=== PATIENT | female | born 1935 | race Two or more races ===

== ENCOUNTER 2020-03-10 09:44 | Outpatient (REF) | payer MEDICARE, SELFPAY ==
[2020-03-10 10:57] LABS: MANUAL DIFF FLAG NO
[2020-03-10 11:01] LABS: Basophils Percent Auto 0.2 % (0-2); Eosinophils Absolute Auto 0.1 X10*3/uL (0.0-0.4); Eosinophils Percent Auto 0.9 % (0-4); Hematocrit 36.1 % (37-47); Hemoglobin 11.3 g/dl (12.0-16.0); Imm Gran Abs Auto 0.05 X10*3/uL (0.00-0.03); Imm Gran Pct Auto 0.6 % (0.0-0.4); Lymphocytes Percent Auto 36.7 % (20-40); Mean Corpuscular HGB Conc 31.3 g/dl (31.0-35.0); Mean Corpuscular Hemoglobin 30.6 pg (27.0-33.0); Mean Corpuscular Volume 97.8 fL (80-98); Mean Platelet Volume 10.1 fL (9.4-12.3); Monocytes Absolute Auto 0.8 X10*3/uL (0.1-1.2); Monocytes Percent Auto 10.1 % (2-11); Neutrophils Absolute Auto 4.2 X10*3/uL (2.0-8.3); Neutrophils Percent Auto 51.5 % (45-73); Platelet Count 288 X10*3/uL (160-400); Red Blood Count 3.69 X10*6/uL (4.20-5.50); Red Cell Distribution Width 12.4 % (11.0-16.0); White Blood Count 8.1 X10*3/uL (4.8-10.8)
[2020-03-10 11:03] LABS: Glucose Urine UA NEG (NEG); Leukocyte Esterase Urine 1+ (NEG); Nitrite Urine NEG (NEG); PH 5.5 (5.0-8.0); Urine Blood NEG (NEG); Urine Ketones NEG (NEG); Urine Protein NEG (NEG-TRACE)
[2020-03-10 11:04] LABS: Appearance Urine HAZY; Color Urine STRAW
[2020-03-10 11:26] LABS: Bacteria Urine TRACE /LPF; RBC Urine 0 /HPF (0)
[2020-03-10 11:28] LABS: Renal w Reflex-LAB USE ONLY Order Verified
[2020-03-10 11:35] LABS: Anion Gap 11 (12-20); Blood Urea Nitrogen 26 mg/dL (9-16); Calcium 9.2 mg/dL (8.4-10.2); Carbon Dioxide 29 mmol/L (22-29); Chloride 107 mmol/L (96-108); Estimated Glomerular Filt Rate 42; Magnesium 1.9 mg/dL (1.6-2.6); Sodium 142 mmol/L (135-145)
[2020-03-10 11:39] LABS: Creatinine Urine 64.88 mg/dL; Microalbum/Creatinine Ratio Ur 101.9 ug/mg cr; Protein/Creatinine Ratio, Ur 0.23 (<0.2); Total Protein Urine Random 15 mg/dL (<12)
[2020-03-10 11:47] LABS: Vitamin D 25-OH Total 26.6 ng/mL (>30)
[2020-03-10 12:42] LABS: Renal w Reflex Lab Use Only Order verified
[2020-03-12 15:06] LABS: Anti Nuclear Antibody Screen POSITIVE (NEGATIVE); Anti Nuclear Antibody Titer 1:40 titer
[2020-03-14 19:08] LABS: IgA 228 mg/dL (70-320); IgG 806 mg/dL (600-1540); IgM 82 mg/dL (50-300)
== END 2020-03-10 09:45 | disposition home or self-care (01) ==
LOC: HO.LAB 09:44
PROVIDERS: PCP Family Medicine; Visit Provider Internal Medicine Nephrology
DX: E11.22 Type 2 diabetes mellitus with diabetic chronic kidney disease (principal); I12.9 Hypertensive chronic kidney disease with stage 1 through stage 4 chronic kidney disease, or unspecified chronic kidney disease; N18.30 Chronic kidney disease, stage 3 unspecified; D64.9 Anemia, unspecified; E78.5 Hyperlipidemia, unspecified; N28.9 Disorder of kidney and ureter, unspecified
CPT/HCPCS: 36415; 80051; 81001; 81003; 82040; 82043; 82306; 82310; 82565; 82784; 83735; 84100; 84156; 84520; 85025; 86038; 86039; 87086; 87088; 87186

== ENCOUNTER 2020-03-11 10:00 | Outpatient (RCR) | payer MEDICARE, SELFPAY ==
[2020-02-10 13:28] VITALS: BP 123/59; PULSE 74
== END 2020-03-14 14:39 | disposition other institution (70) ==
LOC: HO.PT 10:00
PROVIDERS: Visit Provider Family Medicine
DX: R29.898 Other symptoms and signs involving the musculoskeletal system (principal)
CPT/HCPCS: 97110; 97162; 97530

== ENCOUNTER → 2020-03-29 16:03 | Outpatient (BNVA) | payer MEDICARE, SELFPAY | PROVIDERS: PCP Family Medicine; Referring Provider Family Medicine; Visit Provider Student in an Organized Health Care Education/Training Program | DX: M35.3 Polymyalgia rheumatica (principal); M81.0 Age-related osteoporosis without current pathological fracture; Z79.52 Long term (current) use of systemic steroids | CPT/HCPCS: 99212 ==

== ENCOUNTER → 2020-04-12 13:00 | Outpatient (BNVA) | payer MEDICARE, SELFPAY | PROVIDERS: PCP Family Medicine; Visit Provider Student in an Organized Health Care Education/Training Program | DX: M81.0 Age-related osteoporosis without current pathological fracture (principal) | CPT/HCPCS: 96402 ==

== ENCOUNTER 2020-05-13 09:31 | Outpatient (REF) | payer MEDICARE, SELFPAY ==
[2020-05-13 11:30] LABS: MANUAL DIFF FLAG NO
[2020-05-13 11:43] LABS: Glucose Urine UA NEG (NEG); Leukocyte Esterase Urine 1+ (NEG); Nitrite Urine POS (NEG); Specific Gravity - Urine 1.025 (1.005-1.025); Urine Blood NEG (NEG); Urine Ketones NEG (NEG); Urine Protein 1+ MG/DL (NEG-TRACE)
[2020-05-13 11:44] LABS: Appearance Urine HAZY; Color Urine YELLOW
[2020-05-13 11:51] LABS: Basophils Percent Auto 0.6 % (0-2); Eosinophils Absolute Auto 0.1 X10*3/uL (0.0-0.4); Hematocrit 37.1 % (37-47); Hemoglobin 11.5 g/dl (12.0-16.0); Imm Gran Abs Auto 0.03 X10*3/uL (0.00-0.03); Imm Gran Pct Auto 0.5 % (0.0-0.4); Lymphocytes Absolute Auto 1.7 X10*3/uL (1.2-4.9); Lymphocytes Percent Auto 26.5 % (20-40); Mean Corpuscular Hemoglobin 29.9 pg (27.0-33.0); Mean Corpuscular Volume 96.6 fL (80-98); Mean Platelet Volume 10.4 fL (9.4-12.3); Monocytes Absolute Auto 0.7 X10*3/uL (0.1-1.2); Monocytes Percent Auto 10.6 % (2-11); Neutrophils Absolute Auto 3.9 X10*3/uL (2.0-8.3); Neutrophils Percent Auto 59.8 % (45-73); Platelet Count 273 X10*3/uL (160-400); Red Blood Count 3.84 X10*6/uL (4.20-5.50); Red Cell Distribution Width 12.6 % (11.0-16.0); White Blood Count 6.5 X10*3/uL (4.8-10.8)
[2020-05-13 12:16] LABS: Bacteria Urine 1+ /LPF; RBC Urine 0-2 /HPF (0); Renal Epithelial Cells Urine TRACE /LPF; Squamous Epithelial Cell Urine TRACE /LPF; WBC Urine 50-75 /HPF (0-4)
[2020-05-13 12:24] LABS: Estimated Average Glucose 214 mg/dL; Hemoglobin A1c % 9.1 %
[2020-05-13 12:30] LABS: Ferritin 277 ng/mL (10-250); TSH reflex Free T4 4.06 mIU/mL (0.32-4.0)
[2020-05-13 12:31] LABS: Alanine Aminotransferase 16 U/L (0-31); Albumin Level 4.1 g/dL (3.5-5.0); Alkaline Phosphatase 57 U/L (39-117); Anion Gap 14 (12-20); Aspartate Amino Transferase 16 U/L (5-31); Bilirubin Total 0.4 mg/dL (0.0-1.0); Blood Urea Nitrogen 20 mg/dL (9-16); Calcium 8.7 mg/dL (8.4-10.2); Carbon Dioxide 25 mmol/L (22-29); Chloride 108 mmol/L (96-108); Estimated Glomerular Filt Rate 46; Glucose Random 146 mg/dL (60-115); Iron 77 mcg/dL (30-160); Percent Iron Saturation 33 % (15-50); Potassium 4.9 mmol/l (3.3-5.1); Sodium 142 mmol/L (135-145); Total Iron Binding Capacity 230 mcg/dL (228-428); Total Protein 6.4 g/dL (6.5-8.0); Unsaturated Iron Binding 153 ug/dL
[2020-05-13 12:38] LABS: Erythrocyte Sedimentation Rate 27 MM/HR (0-20)
[2020-05-13 12:39] LABS: Folate 12.6 ng/mL (> or = 4.0); Vitamin B12 855 pg/mL (200-900)
[2020-05-13 14:13] LABS: Free T4 (Free Thyroxine) 1.05 ng/dL (0.71-1.85)
== END 2020-05-13 09:32 | disposition home or self-care (01) ==
LOC: HO.LAB 09:31
PROVIDERS: Absent Provider Student in an Organized Health Care Education/Training Program; PCP Family Medicine; Visit Provider Family Medicine
DX: M35.3 Polymyalgia rheumatica (principal); E11.22 Type 2 diabetes mellitus with diabetic chronic kidney disease; I12.9 Hypertensive chronic kidney disease with stage 1 through stage 4 chronic kidney disease, or unspecified chronic kidney disease; N18.31 Chronic kidney disease, stage 3a; R30.0 Dysuria
CPT/HCPCS: 36415; 80053; 81001; 82607; 82728; 82746; 83036; 83540; 84439; 84443; 85025; 85652; 86140; 87086; 87088; 87186

== ENCOUNTER → 2020-06-23 15:06 | Outpatient (BNVA) | payer MEDICARE, SELFPAY | PROVIDERS: PCP Family Medicine; Referring Provider Family Medicine; Visit Provider Student in an Organized Health Care Education/Training Program | DX: M35.3 Polymyalgia rheumatica (principal); M81.0 Age-related osteoporosis without current pathological fracture; Z79.52 Long term (current) use of systemic steroids | CPT/HCPCS: 99212 ==

== ENCOUNTER 2020-09-17 15:04 | Emergency (ER) | payer MEDICARE, SELFPAY ==
--- NOTE | ~2020-09-17 | XR_ITS ---
EXAMINATION: XR TOES, RIGHT CLINICAL INFORMATION: Pain and bruising after injury COMPARISON: None TECHNIQUE: 3 views of the right toes were obtained. FINDINGS: There is subtle cortical lucency seen through the distal shaft of the second distal phalanx only on the oblique view. There is soft tissue swelling. No dislocation seen. XR/XR toe RT min 2V IMPRESSION: There may be a subtle nondisplaced fracture through the distal shaft of the second distal phalanx, seen only on one view.
[2020-09-17 16:04] VITALS: BP 145/68; PULSE 71; RESP 16; TEMP 36.5; O2SAT 97; BMI 29.6
--- NOTE | 2020-09-17 17:09 | ED_ITS ---
HPI - Extremity Injury (Lower) General Chief Complaint: Extremity Injury, Lower Stated Complaint: Toe injury Time Seen by Provider: 09/17/20 15:29 Source: patient Mode of arrival: other (Rollator walker) Limitations: language barrier History of Present Illness HPI Narrative: 85-year-old female with past medical history of osteoporosis, polymyalgia rheumatica, diabetes, hypertension, hypothyroidism, hyperlipidemia presents with crush injury to the 2nd right toe. Patient dropped a vase on her foot, and now has some bruising and pain. She does not describe any other injuries, denies falls, chest pain or pressure, palpitations, shortness breath, shortness of breath on exertion, abdominal pain, abdominal distention, dysuria, hematuria, fevers, chills, nausea, vomiting, diarrhea, constipation, loss of balance, or any other concerning symptoms. MD complaint: other (Toe injury) Onset (ago): day(s) Place: home Severity: moderate Severity scale (1-10): 6 Relieving factors: nothing Exacerbating factors: weight bearing, movement and palpation Context: direct blow (Dropped a vase on her toe) Associated symptoms: swelling Other symptoms: none Treatments prior to arrival: cold therapy and NSAIDS Related Data Home Medications Medication Instructions Recorded Confirmed acetaminophen 325 mg capsule 650 mg PO Q4H PRN 03/29/20 03/29/20 amitriptyline 10 mg tablet 10 mg PO BEDTIME 03/29/20 03/29/20 amlodipine 5 mg tablet 5 mg PO DAILY 03/29/20 03/29/20 ascorbate calcium (vitamin C) 500 500 mg PO DAILY 03/29/20 03/29/20 mg tablet atorvastatin 80 mg tablet 80 mg PO DAILY 03/29/20 03/29/20 calcium carbonate-vitamin D3 600 cap PO 03/29/20 03/29/20 mg calcium-200 unit capsule citalopram 40 mg tablet 40 mg PO DAILY tab 03/29/20 03/29/20 cranberry extract 300 mg tablet 300 mg PO DAILY 03/29/20 03/29/20 cyanocobalamin (vitamin B-12) 1,000 mcg PO DAILY 03/29/20 03/29/20 1,000 mcg capsule diclofenac sodium 1 % topical gel 4 g TOPICAL QID PRN 03/29/20 03/29/20 docusate sodium 250 mg capsule 250 mg PO DAILY 03/29/20 03/29/20 ferrous sulfate 325 mg (65 mg 325 mg PO DAILY 03/29/20 03/29/20 iron) tablet levothyroxine 75 mcg tablet 75 mcg PO DAILY 03/29/20 03/29/20 loratadine 10 mg tablet 10 mg PO DAILY 03/29/20 03/29/20 omeprazole 20 mg capsule,delayed 20 mg PO DAILY 03/29/20 03/29/20 release propylene glycol 0.6 % eye drops 1 drp OPHTHALMIC (EYE) DAILY PRN 03/29/20 03/29/20 sennosides 8.6 mg tablet 17.2 mg PO BEDTIME tab 03/29/20 03/29/20 glipizide 5 mg tablet 5 mg PO BID 06/23/20 Previous Rx's Medication Instructions Recorded denosumab 60 mg/mL subcutaneous 60 mg SUBCUT [id number] #1 ml 03/29/20 syringe baclofen 10 mg tablet 5 mg PO BID #90 tab 06/09/20 prednisone 1 mg tablet 2 mg PO DAILY #60 tab 07/26/20 Allergies Allergy/AdvReac Type Severity Reaction Status Date / Time No Known Allergies Allergy Verified 09/17/20 16:07 [No Known Allergies*] Review of Systems Review of Systems: Constitutional: No Fever, No Chills ENT/Mouth: No Ear Pain, No Hoarseness, No sore throat Eyes: No Eye Pain, No Swelling, No Redness, No Foreign Body Cardiovascular: No Chest Pain, No SOB Respiratory: No Cough, No Dyspnea Gastrointestinal: No Nausea, No Vomiting, No Diarrhea, No abdominal Pain Genitourinary: No Dysuria, No Hematuria Musculoskeletal: positive right 2nd toe pain pain, No Myalgias, No Joint Swelling Skin: Positive right 2nd toe swelling and bruising, No Skin lacerations, No rash Neuro: No Weakness, No Numbness, No Paresthesias, No Loss of Consciousness, No Dizziness, No Headache Psych: No Anxiety/Panic, No Depression Heme/Lymph: no easy bruising, no Lymphadenopathy Endocrine: No Polyuria, No Polydipsia Yes all other systems are reviewed and are negative [facility] Past Medical History Attestation statement: The following information was validated with the patient. Source: old records reviewed Medical History Polymyalgia rheumatica Social History Social History Alcohol intake: never Smoking Status: Never smoker Advance Directives: Yes Advance Directives on File: Yes Advance Directives Date on File: 02/10/20 Physical Exam Vital Signs: Vital Signs: Last Vital Signs Temp 97.7 F 09/17/20 16:04 Pulse 71 09/17/20 16:04 Resp 16 09/17/20 16:04 BP 145/68 H 09/17/20 16:04 Pulse Ox 97 09/17/20 16:04 Body Mass Index 29.6 Appearance: Alert. Oriented X3. No acute distress. Eyes: Pupils equal, round and reactive to light. ENT: Pharynx normal. Neck: Normal inspection. Neck supple. CVS: Normal heart rate and rhythm. Pulses normal. Respiratory: No respiratory distress. Breath sounds normal. Abdomen: Soft and nontender. Skin: Skin warm and dry. Normal skin color. Normal skin turgor. Extremities: Right 2nd toe swollen, bruised, tender to palpation, full range of motion to bilateral lower extremities and other toes. No hip pain or pain to palpation, no crepitus. Neuro: No motor deficit. No sensory deficit. Course Course Course Narrative: 85-year-old female presents with right 2nd toe pain after dropping a vase on her toe. Will order x-ray. X-rays show a small hairline fracture, barely visible on x-ray and only visible in one view to the right 2nd toe phalanx. Will give patient a postop shoe as she is states that she is having a difficult time putting shoes on because the pressure on the top of foot. Patient will follow-up with her primary care physician very closely as she is a diabetic and does understand that she needs close monitoring for wound healing. Patient and patient's family verbalized understanding of and agrees to plan of care discharge home. Family utilized as air and water tester, [employer] translate utilized for discharge instructions. MDM - Extremity Injury (Lower) Differential Diagnosis Differential diagnosis: Likely fracture of toe Medical Records Attestation: I reviewed the patient's medical records. Lab Data Attestation: I reviewed the patient's lab results. Imaging Data Toe x-ray: Attestation: I personally reviewed and interpreted this imaging study as follows: Radiologist's impression: EXAMINATION: XR TOES, RIGHT CLINICAL INFORMATION: Pain and bruising after injury COMPARISON: None TECHNIQUE: 3 views of the right toes were obtained. FINDINGS: There is subtle cortical lucency seen through the distal shaft of the second distal phalanx only on the oblique view. There is soft tissue swelling. No dislocation seen. XR/XR toe RT min 2V IMPRESSION: There may be a subtle nondisplaced fracture through the distal shaft of the second distal phalanx, seen only on one view. Discharge Plan Discharge Clinical Impression: Fracture of toe Qualifiers: Encounter type: initial encounter Toe: lesser toe Fracture type: closed Phalanx: distal Fracture alignment: nondisplaced Laterality: right Qualified Code(s): S92.534A - Nondisplaced fracture of distal phalanx of right lesser toe(s), initial encounter for closed fracture Patient Disposition: Home, Self-Care Instructions: Toe Fracture (ED) Additional Instructions: Se le evalu? por dolor en el josselny dedo del pie derecho. Hughes dedo del pie tiene theodore jennie?a fractura, por favor use el zapato posoperatorio, use hielo y lev?ntelo para mayor comodidad. Use Tylenol Motrin seg?n sea necesario para controlar el dolor. Si es diab?bella, debe hacer un seguimiento con un m?dico de atenci?n primaria en 2 a 4 d?as para garantizar theodore curaci?n adecuada. [place] por elegir tobias departamento de emergencias para hughes evaluaci?n. Malachi un seguimiento con el m?dico de atenci?n primaria seg?n sea necesario. Regrese al departamento de emergencias por cualquier s?ntoma nuevo, preocupante o que empeore. You were evaluated for right 2nd toe pain. Your toe has a small fracture, please wear the postop shoe, use ice and elevate for comfort. Use Tylenol Motrin as needed for pain management. You are diabetic, you must follow-up with a primary care physician in 2-4 days to ensure proper healing. Thank you for choosing this emergency department for evaluation. Please follow-up with primary care physician as needed. Return to the emergency department for any new, concerning, or worsening symptoms. Prescriptions: No Action baclofen 10 mg tablet 5 mg PO BID Qty: 90 RF: 1 prednisone 1 mg tablet 2 mg PO DAILY Qty: 60 RF: 3 ascorbate calcium (vitamin C) 500 mg tablet 500 mg PO DAILY RF: 0 ferrous sulfate 325 mg (65 mg iron) tablet 325 mg PO DAILY RF: 0 atorvastatin [Lipitor] 80 mg tablet 80 mg PO DAILY RF: 0 amlodipine 5 mg tablet 5 mg PO DAILY RF: 0 omeprazole 20 mg capsule,delayed release(DR/EC) 20 mg PO DAILY RF: 0 docusate sodium [Stool Softener] 250 mg capsule 250 mg PO DAILY RF: 0 citalopram 40 mg tablet 40 mg PO DAILY RF: 0 cyanocobalamin (vitamin B-12) 1,000 mcg capsule 1,000 mcg PO DAILY RF: 0 acetaminophen [Tylenol] 325 mg capsule 650 mg PO Q4H PRNRF: 0 amitriptyline 10 mg tablet 10 mg PO BEDTIME RF: 0 levothyroxine 75 mcg tablet 75 mcg PO DAILY RF: 0 loratadine [Allergy Relief (loratadine)] 10 mg tablet 10 mg PO DAILY RF: 0 cranberry extract 300 mg tablet 300 mg PO DAILY RF: 0 Calcium 600 + D(3) 600 mg calcium- 200 unit capsule PO RF: 0 Systane Balance 0.6 % drops 1 drp ophthalmic (eye) DAILY PRNRF: 0 diclofenac sodium [Voltaren] 1 % gel 4 g topical QID PRNRF: 0 sennosides [Natural Senna Laxative] 8.6 mg tablet 17.2 mg PO BEDTIME RF: 0 Prolia 60 mg/mL syringe 60 mg subcut [id number] Qty: 1 RF: 1 glipizide 5 mg tablet 5 mg PO BID RF: 0
== END 2020-09-17 17:41 | disposition home or self-care (01) ==
PROVIDERS: Emergency Provider Emergency Medicine; PCP Family Medicine
DX: S92.534A Nondisplaced fracture of distal phalanx of right lesser toe(s), initial encounter for closed fracture (principal); W20.8XXA Other cause of strike by thrown, projected or falling object, initial encounter; Y93.9 Activity, unspecified; Y92.039 Unspecified place in apartment as the place of occurrence of the external cause; Y99.9 Unspecified external cause status
CPT/HCPCS: 73660; 99283; 99284

== ENCOUNTER 2020-10-10 11:39 | Outpatient (REF) | payer MEDICARE, SELFPAY ==
[2020-10-10 12:47] LABS: Alanine Aminotransferase 15 U/L (0-31); Alkaline Phosphatase 53 U/L (39-117); Anion Gap 15 (12-20); Aspartate Amino Transferase 17 U/L (5-31); Bilirubin Total 0.3 mg/dL (0.0-1.0); Blood Urea Nitrogen 29 mg/dL (9-16); C Reactive Protein 0.88 mg/dL (< or = 0.50); Calcium 9.3 mg/dL (8.4-10.2); Carbon Dioxide 22 mmol/L (22-29); Chloride 111 mmol/L (96-108); Estimated Glomerular Filt Rate 42; Glucose Random 84 mg/dL (60-115); Potassium 4.6 mmol/L (3.3-5.1); Sodium 143 mmol/L (135-145); Total Protein 6.7 g/dL (6.5-8.0)
[2020-10-10 12:55] LABS: Cholesterol 118 mg/dL; HDL Cholesterol 38 mg/dL; LDL Cholesterol Calculated 33 mg/dl; Triglycerides 238 mg/dL
[2020-10-10 13:12] LABS: Erythrocyte Sedimentation Rate 38 MM/HR (0-20)
[2020-10-10 13:20] LABS: TSH reflex Free T4 3.48 uIU/mL (0.32-4.0); Vitamin D 25-OH Total 26.3 ng/mL (>30)
[2020-10-10 13:21] LABS: Folate 10.3 ng/mL (> or = 4.0); Vitamin B12 936 pg/mL (200-900)
[2020-10-10 13:57] LABS: Estimated Average Glucose 180 mg/dL; Hemoglobin A1c % 7.9 %
[2020-10-10 14:12] LABS: Creatinine Urine 115.75 mg/dL; Microalbum/Creatinine Ratio Ur 130.4 ug/mg cr
[2020-10-14 17:02] LABS: Vitamin D 25-OH, D2 <4 ng/mL; Vitamin D 25-OH, D3 24 ng/mL; Vitamin D 25-OH, Total 24 ng/mL (30-100)
== END 2020-10-10 11:40 | disposition home or self-care (01) ==
LOC: HO.LAB 11:39
PROVIDERS: Student in an Organized Health Care Education/Training Program; PCP Family Medicine; Visit Provider Family Medicine
DX: M85.859 Other specified disorders of bone density and structure, unspecified thigh (principal); I12.9 Hypertensive chronic kidney disease with stage 1 through stage 4 chronic kidney disease, or unspecified chronic kidney disease; N18.31 Chronic kidney disease, stage 3a; E11.22 Type 2 diabetes mellitus with diabetic chronic kidney disease; M81.0 Age-related osteoporosis without current pathological fracture
CPT/HCPCS: 36415; 80053; 80061; 82043; 82306; 82607; 82746; 83036; 84443; 85652; 86140

== ENCOUNTER → 2020-10-12 13:09 | Outpatient (BNVA) | payer MEDICARE, SELFPAY | PROVIDERS: PCP Family Medicine; Visit Provider Student in an Organized Health Care Education/Training Program | DX: M35.3 Polymyalgia rheumatica (principal); M81.0 Age-related osteoporosis without current pathological fracture; M89.49 Other hypertrophic osteoarthropathy, multiple sites; Z79.52 Long term (current) use of systemic steroids | CPT/HCPCS: 96372; 99212 ==

== ENCOUNTER 2020-11-28 13:20 | Emergency (ER) | payer MEDICARE, SELFPAY ==
--- NOTE | ~2020-11-28 | CT_ITS ---
EXAMINATION: CT HEAD WITHOUT CONTRAST CT CERVICAL SPINE WITHOUT CONTRAST CLINICAL INFORMATION: Head trauma. COMPARISON: MRI brain May 30, 2018. CT head January 12, 2016 TECHNIQUE: Imaging was performed from the skull base to vertex without intravenous administration of contrast. In addition, helical noncontrast CT imaging was acquired through the cervical spine and source images were reviewed along with axial reconstructions and sagittal and coronal MPRs. [This CT examination was performed using dose optimization techniques as appropriate, variously including the following: *Automated exposure control *Adjustment of mA and/or kV according to patient size (this includes techniques or standardized protocols for targeted exams where dose is matched to indication/reason for exam; i.e. extremities or head) *Use of iterative reconstruction technique] DLP: 1164 mGy-cm FINDINGS: HEAD: No intracranial mass, hemorrhage, or midline shift is visualized. There is generalized global volume loss. There is moderate prominence of the ventricles and the sulci . There is mild hypodensity of the periventricular white matter due to chronic small vessel ischemic disease. There are vascular calcifications of the internal carotid arteries bilaterally. . No extra-axial collections are identified. Small calcified meningioma in the left frontal region along the inner table of the skull. CERVICAL SPINE: There is no evidence of acute cervical spine fracture. Vertebral bodies remain normal in height. Cervical vertebrae have normal alignment. There is multilevel degenerative spondylosis of the cervical spine with disc height narrowing and endplate spurs and facet joint arthrosis No pre- or paravertebral soft tissue abnormality is identified. Limited assessment of the lung apices is unremarkable. CT/CT cervical spine wo con IMPRESSION: 1. No acute intracranial pathology. 2. No CT evidence of acute cervical spine fracture or traumatic subluxation
[2020-11-28 15:23] VITALS: BP 167/75; PULSE 89; RESP 18; TEMP 36.7; O2SAT 97; BMI 29.2
[2020-11-28 16:10] VITALS: BP 165/68; PULSE 88; RESP 16; O2SAT 97
--- NOTE | 2020-11-28 16:20 | ECG_ITS ---
Test Reason : FALL Blood Pressure : / mmHG Vent. Rate : 095 BPM Atrial Rate : 095 BPM P-R Int : 162 ms QRS Dur : 076 ms QT Int : 356 ms P-R-T Axes : 044 -12 105 degrees QTc Int : 447 ms Normal sinus rhythm Moderate voltage criteria for LVH, may be normal variant Abnormal QRS-T angle, consider primary T wave abnormality Abnormal ECG When compared with ECG of 16-DEC-2016 14:12, No significant change was found Referred By: Veda Serrano Electronically Signed By:Dimas Andres
[2020-11-28 16:47] LABS: MANUAL DIFF FLAG NO
[2020-11-28 16:49] LABS: Basophils Percent Auto 0.3 % (0-2); Eosinophils Absolute Auto 0.1 X10*3/uL (0.0-0.4); Eosinophils Percent Auto 1.4 % (0-4); Hematocrit 37.1 % (37-47); Hemoglobin 11.6 g/dl (12.0-16.0); Imm Gran Abs Auto 0.04 X10*3/uL (0.00-0.03); Imm Gran Pct Auto 0.5 % (0.0-0.4); Lymphocytes Absolute Auto 1.3 X10*3/uL (1.2-4.9); Lymphocytes Percent Auto 16.9 % (20-40); Mean Corpuscular HGB Conc 31.3 g/dl (31.0-35.0); Mean Corpuscular Hemoglobin 29.8 pg (27.0-33.0); Mean Corpuscular Volume 95.4 fL (80-98); Mean Platelet Volume 9.7 fL (9.4-12.3); Monocytes Absolute Auto 0.8 X10*3/uL (0.1-1.2); Monocytes Percent Auto 10.5 % (2-11); Neutrophils Absolute Auto 5.5 X10*3/uL (2.0-8.3); Neutrophils Percent Auto 70.4 % (45-73); Platelet Count 257 X10*3/uL (160-400); Red Blood Count 3.89 X10*6/uL (4.20-5.50); Red Cell Distribution Width 13.4 % (11.0-16.0); White Blood Count 7.8 X10*3/uL (4.8-10.8)
--- NOTE | 2020-11-28 16:53 | ED_ITS ---
HPI - Fall General Chief Complaint: Fall Stated Complaint: fall Source: patient and family Mode of arrival: ambulatory Limitations: no limitations History of Present Illness HPI Narrative: 85-year-old female with past medical history of polymyalgia rheumatica with long-term steroid use, osteoporosis, hypertension, h yperlipidemia, diabetes, hypothyroidism, GERD and chronic pain presents with head injury sustained from a fall. Patient states that she does not recall what happened when she fell, but did hit her head on the left side. She complains of a mild headache, but does not report any other concerning symptoms. She denies chest pain or pressure, palpitations, shortness breath, shortness breath on exertion, abdominal pain, abdominal distention, dysuria, hematuria, nausea, vomiting, diarrhea, constipation, edema, dizziness, lightheadedness, fevers and chills. MD complaint: fall Onset (ago): hour(s) Fall from: standing Fall witnessed: no Place fall occurred: home Loss of consciousness: none Length of LOC: second(s) Prolonged down time: no Symptoms prior to fall: none Location of injury: head Severity: mild Severity scale (1-10): 3 Associated symptoms (after fall): headache Related Data Home Medications Medication Instructions Recorded Confirmed acetaminophen 325 mg capsule 650 mg PO Q4H PRN 03/29/20 03/29/20 (Tylenol) amitriptyline 10 mg tablet 10 mg PO BEDTIME 03/29/20 03/29/20 amlodipine 5 mg tablet 5 mg PO DAILY 03/29/20 03/29/20 ascorbate calcium (vitamin C) 500 500 mg PO DAILY 03/29/20 03/29/20 mg tablet atorvastatin 80 mg tablet (Lipitor) 80 mg PO DAILY 03/29/20 03/29/20 calcium carbonate-vitamin D3 600 cap PO 03/29/20 03/29/20 mg calcium-200 unit capsule (Calcium 600 + D(3)) citalopram 40 mg tablet 40 mg PO DAILY tab 03/29/20 03/29/20 cranberry extract 300 mg tablet 300 mg PO DAILY 03/29/20 03/29/20 cyanocobalamin (vitamin B-12) 1,000 mcg PO DAILY 03/29/20 03/29/20 1,000 mcg capsule diclofenac sodium 1 % topical gel 4 g TOPICAL QID PRN 03/29/20 03/29/20 (Voltaren) docusate sodium 250 mg capsule 250 mg PO DAILY 03/29/20 03/29/20 (Stool Softener) ferrous sulfate 325 mg (65 mg 325 mg PO DAILY 03/29/20 03/29/20 iron) tablet levothyroxine 75 mcg tablet 75 mcg PO DAILY 03/29/20 03/29/20 loratadine 10 mg tablet (Allergy 10 mg PO DAILY 03/29/20 03/29/20 Relief (loratadine)) omeprazole 20 mg capsule,delayed 20 mg PO DAILY 03/29/20 03/29/20 release propylene glycol 0.6 % eye drops 1 drp OPHTHALMIC (EYE) DAILY PRN 03/29/20 03/29/20 (Systane Balance) sennosides 8.6 mg tablet (Natural 17.2 mg PO BEDTIME tab 03/29/20 03/29/20 Senna Laxative) glipizide 5 mg tablet 5 mg PO BID 06/23/20 conjugated estrogens 0.625 mg/gram 0.625 mg VAGINAL 2XW g 10/12/20 vaginal cream (Premarin) mirabegron 25 mg tablet,extended 25 mg PO DAILY 10/12/20 release 24 hr (Myrbetriq) Previous Rx's Medication Instructions Recorded prednisone 1 mg tablet 2 mg PO DAILY #60 tab 07/26/20 baclofen 10 mg tablet 5 mg PO BID #90 tab 09/27/20 denosumab 60 mg/mL subcutaneous 60 mg SUBCUT [id number] #1 ml 09/28/20 syringe (Prolia) tramadol 50 mg tablet 50 mg PO BEDTIME #30 tab 10/12/20 cefuroxime axetil 500 mg tablet 500 mg PO Q12H 7 Days #14 tab 11/28/20 Allergies Allergy/AdvReac Type Severity Reaction Status Date / Time No Known Allergies Allergy Verified 10/12/20 13:14 [No Known Allergies*] Review of Systems Review of Systems: Constitutional: Positive headache, No Fever, No Chills ENT/Mouth: No Ear Pain, No Hoarseness, No sore throat Eyes: No Eye Pain, No Swelling, No Redness, No Foreign Body Cardiovascular: No Chest Pain, No SOB Respiratory: No Cough, No Dyspnea Gastrointestinal: No Nausea, No Vomiting, No Diarrhea, No abdominal Pain Genitourinary: No Dysuria, No Hematuria Musculoskeletal: positive neck pain, No Myalgias, No Joint Swelling Skin: No Skin lacerations, No rash Neuro: No Weakness, No Numbness, No Paresthesias, No Loss of Consciousness, No Dizziness Psych: No Anxiety/Panic, No Depression Heme/Lymph: no easy bruising, no Lymphadenopathy Endocrine: No Polyuria, No Polydipsia Yes all other systems are reviewed and are negative FORMERLY [facility], [facility]–1983 Past Medical History Attestation statement: The following information was validated with the patient. Source: old records reviewed Medical History (Updated 11/28/20 @ 18:28 by Veda Serrano NP) Polymyalgia rheumatica Surgical History History of back surgery History of hip surgery Hx of hysterectomy Hx of tubal ligation Family History Family History Mother HTN (hypertension) Father Alzheimer disease Social History Social History Household Members: Spouse and Children Housing: House Alcohol intake: never Patient Tobacco Use Status: Never used Tobacco Use of substances other than those prescribed or required for medical reasons: No Advance Directives: Yes Advance Directives on File: Yes Advance Directives Date on File: 02/10/20 Physical Exam Vital Signs: Vital Signs: Last Vital Signs Temp 98.0 F 11/28/20 15:23 Pulse 88 11/28/20 16:10 Resp 16 11/28/20 16:10 BP 165/68 H 11/28/20 16:10 Pulse Ox 97 11/28/20 16:10 Body Mass Index 29.2 Appearance: Alert. Oriented X3. No acute distress. Head: Normal external exam. Normocephalic. Atraumatic. No Hall signs noted. No raccoon eyes noted Eyes: PERRLA. EOMI. Conjunctiva and sclera normal. Eyelids normal. ENT: TM's Normal. Pharynx normal. Uvula midline. Moist mucous membranes. No trismus noted. No drooling noted. No muffled voice noted. Neck: Normal inspection. Neck supple. No adenopathy. Thyroid Normal. No meningeal signs. No neck mass noted. CVS: Normal heart rate and rhythm. Heart sound normal. No murmurs noted. Pulses equal to all extremities. Respiratory: No respiratory distress. Painless inspiration. Breath sounds normal. No wheezes/rales/rhonchi noted. Chest nontender. No accessory muscle usage noted or decreased air movement noted. Abdomen: Soft and nontender. Bowel sounds normal in all 4 quadrants. No di stention noted. No organomegaly noted. No visible injury noted. Back: No CVA tenderness. Full range of motion noted. Skin: Skin warm and dry. Normal skin color. Normal skin turgor. No rashes/le sions/lacerations noted. Extremities: No lower extremity edema. Extremities exhibit normal range of motion. Extremities nontender. Neuro: cranial nerves 2-12 intact, no focal neural deficits, strength 5/5 to all extremities, No motor deficit. No sensory deficit. Course Course Course Narrative: 85-year-old female presents for evaluation after a mechanical fall with a head strike. Patient does not report any prodromal symptoms or loss of consciousness however she does not recall how or why she fell. Will rule out ACS, CVA, fracture, will order labs and urinalysis. CT head neck are negative for acute findings. Labs are unremarkable, urinalysis positive for UTI. Will treat with cefuroxime. Does have an elevated BUN per baseline. Plan of care is to discharge home. Patient and daughter verbalized understanding of discharge instructions and agrees to plan of care discharge kelsie e. MDM - Fall MDM Narrative Medical decision making narrative: Fall Medical Records Attestation: I reviewed the patient's medical records. Lab Data Attestation: I reviewed the patient's lab results. Result diagrams: 11/28/20 16:40 11/28/20 16:40 Labs: Lab Results 11/28/20 11/28/20 11/28/20 Range/Units 16:40 16:40 16:40 WBC 7.8 (4.8-10.8) X10*3/uL RBC 3.89 L (4.20-5.50) X10*6/uL Hgb 11.6 L (12.0-16.0) g/dl Hct 37.1 (37-47) % MCV 95.4 (80-98) fL MCH 29.8 (27.0-33.0) pg MCHC 31.3 (31.0-35.0) g/dl RDW 13.4 (11.0-16.0) % Plt Count 257 (160-400) X10*3/uL MPV 9.7 (9.4-12.3) fL Immature Gran % (Auto) 0.5 H (0.0-0.4) % Neut % (Auto) 70.4 (45-73) % Lymph % (Auto) 16.9 L (20-40) % [place] % (Auto) 10.5 (2-11) % Eos % (Auto) 1.4 (0-4) % Baso % (Auto) 0.3 (0-2) % Lymph # (Auto) 1.3 (1.2-4.9) X10*3/uL [place] # (Auto) 0.8 (0.1-1.2) X10*3/uL Eos # (Auto) 0.1 (0.0-0.4) X10*3/uL Baso # (Auto) 0.0 (0.0-0.2) X10*3/uL Abs Immat Gran (auto) 0.04 H (0.00-0.03) X10*3/uL Absolute Neuts (auto) 5.5 (2.0-8.3) X10*3/uL Absolute Nucleated RBC 0.000 (0.0-0.012) X10*3/uL Nucleated RBC % (auto) 0.0 (0.0-0.2) /100WBC Sodium 138 (135-145) mmol/L Potassium 5.1 (3.3-5.1) mmol/L Chloride 107 (96-108) mmol/L Carbon Dioxide 21 L (22-29) mmol/L Anion Gap 15 (12-20) BUN 25 H (9-16) mg/dL Creatinine 1.13 (0.5-1.4) mg/dL Estim Creat Clear Calc 35.9 Estimated GFR 46 Random Glucose 147 H D (60-115) mg/dL Calcium 9.3 (8.4-10.2) mg/dL Troponin I High Sens 6.2 (<3.5-17.0) ng/L Urine Color Urine Appearance Urine pH (5.0-8.0) Ur Specific [place] (1.005-1.025) Urine Protein (NEG-TRACE) MG/DL Urine Glucose (UA) (NEG) MG/DL Urine Ketones (NEG) MG/DL Urine Blood (NEG) Urine Nitrite (NEG) Ur Leukocyte Esterase (NEG) Urine RBC (0) /HPF Urine WBC (0-4) /HPF Ur Squamous Epith Cells /LPF Urine Bacteria /LPF 11/28/20 Range/Units 18:02 WBC (4.8-10.8) X10*3/uL RBC (4.20-5.50) X10*6/uL Hgb (12.0-16.0) g/dl Hct (37-47) % MCV (80-98) fL MCH (27.0-33.0) pg MCHC (31.0-35.0) g/dl RDW (11.0-16.0) % Plt Count (160-400) X10*3/uL MPV (9.4-12.3) fL Immature Gran % (Auto) (0.0-0.4) % Neut % (Auto) (45-73) % Lymph % (Auto) (20-40) % [place] % (Auto) (2-11) % Eos % (Auto) (0-4) % Baso % (Auto) (0-2) % Lymph # (Auto) (1.2-4.9) X10*3/uL [place] # (Auto) (0.1-1.2) X10*3/uL Eos # (Auto) (0.0-0.4) X10*3/uL Baso # (Auto) (0.0-0.2) X10*3/uL Abs Immat Gran (auto) (0.00-0.03) X10*3/uL Absolute Neuts (auto) (2.0-8.3) X10*3/uL Absolute Nucleated RBC (0.0-0.012) X10*3/uL Nucleated RBC % (auto) (0.0-0.2) /100WBC Sodium (135-145) mmol/L Potassium (3.3-5.1) mmol/L Chloride (96-108) mmol/L Carbon Dioxide (22-29) mmol/L Anion Gap (12-20) BUN (9-16) mg/dL Creatinine (0.5-1.4) mg/dL Estim Creat Clear Calc Estimated GFR Random Glucose (60-115) mg/dL Calcium (8.4-10.2) mg/dL Troponin I High Sens (<3.5-17.0) ng/L Urine Color YELLOW Urine Appearance CLEAR Urine pH 5.5 (5.0-8.0) Ur Specific [place] 1.010 (1.005-1.025) Urine Protein NEG (NEG-TRACE) MG/DL Urine Glucose (UA) NEG (NEG) MG/DL Urine Ketones NEG (NEG) MG/DL Urine Blood NEG (NEG) Urine Nitrite NEG (NEG) Ur Leukocyte Esterase TRACE H (NEG) Urine RBC 0 (0) /HPF Urine WBC 1-4 (0-4) /HPF Ur Squamous Epith Cells 1+ /LPF Urine Bacteria NONE /LPF Imaging Data CT head neck: Attestation: I personally reviewed and interpreted this imaging study as jose luis fontanez: Radiologist's impression: EXAMINATION: CT HEAD WITHOUT CONTRAST CT CERVICAL SPINE WITHOUT CONTRAST CLINICAL INFORMATION: Head trauma.? COMPARISON: MRI brain May 30, 2018. CT head January 12, 2016 TECHNIQUE: Imaging was performed from the skull base to vertex without intravenous administration of contrast. In addition, helical noncontrast CT imaging was acquired through the cervical spine and source images were reviewed along with axial reconstructions and sagittal and coronal MPRs. [This CT examination was performed using dose optimization techniques as appropriate, variously including the following: *Automated exposure control *Adjustment of mA and/or kV according to patient size (this includes techniques or standardized protocols for targeted exams where dose is matched to indication/reason for exam; i.e. extremities or head) *Use of iterative reconstruction technique] DLP: 1164 mGy-cm FINDINGS: HEAD: No intracranial mass, hemorrhage, or midline shift is visualized. There is generalized global volume loss. There is moderate prominence of the ventricles and the sulci . There is mild hypodensity of the periventricular white matter due to chronic small vessel ischemic disease. There are vascular calcifications of the internal carotid arteries bilaterally. . No extra-axial collections are identified. Small calcified meningioma in the left frontal region along the inner table of the skull. CERVICAL SPINE: There is no evidence of acute cervical spine fracture. Vertebral bodies remain normal in height. Cervical vertebrae have normal alignment. There is multilevel degenerative spondylosis of the cervical spine with disc height narrowing and endplate spurs and facet joint arthrosis No pre- or paravertebral soft tissue abnormality is identified. Limited assessment of the lung apices is unremarkable. CT/CT head/brain wo con IMPRESSION: 1. No acute intracranial pathology. 2. No CT evidence of acute cervical spine fracture or traumatic subluxation ? ECG Data Attestation: I personally reviewed and interpreted this ECG as follows: ECG interpretation date: 11/28/20 ECG interpretation time: 16:47 Prior ECG tracings: available for review Interpretation: Vent. Rate : 095 BPM ? ? Atrial Rate : 095 BPM ?? P-R Int : 162 ms? QRS Dur : 076 ms ? ? QT Int : 356 ms ? ? ? P-R-T Axes : 044 -12 105 degrees ?? QTc Int : 447 ms ? Normal sinus rhythm Moderate voltage criteria for LVH, may be normal variant Abnormal QRS-T angle, consider primary T wave abnormality Abnormal ECG When compared with ECG of 16-DEC-2016 14:12, No significant change was found Discharge Plan Discharge Clinical Impression: Acute UTI Fall Qualifiers: Encounter type: initial encounter Qualified Code(s): W19.XXXA - Unspecified fall, initial encounter Patient Disposition: Home, Self-Care Instructions: Fall Prevention for Older Adults (ED), Urinary Tract Infection in Older Adults (ED) Additional Instructions: Fue evaluado por theodore ca?da. Las tomograf?as computarizadas de la tricia y el dory son negativas para los hallazgos agudos que requieren theodore intervenci?n urgente. Bowles an?lisis de orina fue positivo para UTI. Le estamos tratando con cefuroxima 500 mg dos veces al d?a yajaira los pr?ximos 7 d?as. [place] tobias medicamento seg?n las indicaciones. Beber mucho l?quido. No tome anti?cidos con tobias medicamento. Deje de herb omeprazol mientras michael tobias antibi?bella. [place] por elegir tobias departamento de emergencias para bowles evaluaci?n. [place] un seguimiento con bowles m?dico de atenci?n primaria seg?n sea necesario. Regrese al departamento de emergencias por cualquier s?ntoma nuevo, preocupante o que empeore. You were evaluated for a fall. CT scan of head and neck are negative for acute findings requiring emergent intervention. Your urinalysis was positive for UTI. We are treating you with cefuroxime 500 mg twice a day for the next 7 days. Please take this medication as directed. Drink plenty of fluids. Do not take anti acids with this medication. Stop your omeprazole while taking this antibiotic. Thank you for choosing this emergency department for evaluation. Please follow-up with primary care physician as needed. Return to the emergency department for any new, concerning, or worsening symptoms. Prescriptions: New cefuroxime axetil 500 mg tablet 500 mg PO Q12H 7 Days Qty: 14 RF: 0 No Action prednisone 1 mg tablet 2 mg PO DAILY Qty: 60 RF: 3 baclofen 10 mg tablet 5 mg PO BID Qty: 90 RF: 1 denosumab [Prolia] 60 mg/mL syringe 60 mg subcut [id number] Qty: 1 RF: 1 Myrbetriq 25 mg tablet extended release 24 hr 25 mg PO DAILY RF: 0 Premarin 0.625 mg/gram cream 0.625 mg vaginal 2XW RF: 0 tramadol 50 mg tablet 50 mg PO BEDTIME Qty: 30 RF: 0 ascorbate calcium (vitamin C) 500 mg tablet 500 mg PO DAILY RF: 0 ferrous sulfate 325 mg (65 mg iron) tablet 325 mg PO DAILY RF: 0 atorvastatin [Lipitor] 80 mg tablet 80 mg PO DAILY RF: 0 amlodipine 5 mg tablet 5 mg PO DAILY RF: 0 omeprazole 20 mg capsule,delayed release(DR/EC) 20 mg PO DAILY RF: 0 docusate sodium [Stool Softener] 250 mg capsule 250 mg PO DAILY RF: 0 citalopram 40 mg tablet 40 mg PO DAILY RF: 0 cyanocobalamin (vitamin B-12) 1,000 mcg capsule 1,000 mcg PO DAILY RF: 0 acetaminophen [Tylenol] 325 mg capsule 650 mg PO Q4H PRNRF: 0 amitriptyline 10 mg tablet 10 mg PO BEDTIME RF: 0 levothyroxine 75 mcg tablet 75 mcg PO DAILY RF: 0 loratadine [Allergy Relief (loratadine)] 10 mg tablet 10 mg PO DAILY RF: 0 cranberry extract 300 mg tablet 300 mg PO DAILY RF: 0 Calcium 600 + D(3) 600 mg calcium- 200 unit capsule PO RF: 0 Systane Balance 0.6 % drops 1 drp ophthalmic (eye) DAILY PRNRF: 0 diclofenac sodium [Voltaren] 1 % gel 4 g topical QID PRNRF: 0 sennosides [Natural Senna Laxative] 8.6 mg tablet 17.2 mg PO BEDTIME RF: 0 glipizide 5 mg tablet 5 mg PO BID RF: 0 Interventions: ED Discharge Assessment Last Done: 11/28/20 18:34 Discharge Date/Time: 11/28/20 18:36
[2020-11-28 17:28] LABS: Anion Gap 15 (12-20); Blood Urea Nitrogen 25 mg/dL (9-16); Calcium 9.3 mg/dL (8.4-10.2); Carbon Dioxide 21 mmol/L (22-29); Chloride 107 mmol/L (96-108); Creatinine Clr Calc Pharmacy 35.9; Estimated Glomerular Filt Rate 46; Glucose Random 147 mg/dL (60-115); Potassium 5.1 mmol/L (3.3-5.1); Sodium 138 mmol/L (135-145)
[2020-11-28 17:30] LABS: Troponin-I High Sensitivity 6.2 ng/L (<3.5-17.0)
[2020-11-28 18:11] LABS: Glucose Urine UA NEG (NEG); Leukocyte Esterase Urine TRACE (NEG); Nitrite Urine NEG (NEG); PH 5.5 (5.0-8.0); UACC Culture Trigger YES; Urine Blood NEG (NEG); Urine Ketones NEG (NEG); Urine Protein NEG (NEG-TRACE)
[2020-11-28 18:12] LABS: Appearance Urine CLEAR; Color Urine YELLOW
[2020-11-28 18:17] LABS: RBC Urine 0 /HPF (0); Squamous Epithelial Cell Urine 1+ /LPF
== END 2020-11-28 18:36 | disposition home or self-care (01) ==
PROVIDERS: Nurse Practitioner Family; Emergency Provider Emergency Medicine; PCP Family Medicine
DX: N39.0 Urinary tract infection, site not specified (principal); R51.9 Headache, unspecified; Z91.81 History of falling; Z79.52 Long term (current) use of systemic steroids; M35.3 Polymyalgia rheumatica
CPT/HCPCS: 36415; 70450; 72125; 80048; 81001; 84484; 85025; 87086; 87088; 87186; 93005; 99284

== ENCOUNTER 2020-12-14 11:05 | Outpatient (REF) | payer MEDICARE, SELFPAY ==
[2020-12-14 13:07] LABS: Alanine Aminotransferase 14 U/L (0-31); Albumin Level 3.9 g/dL (3.5-5.0); Alkaline Phosphatase 49 U/L (39-117); Anion Gap 14 (12-20); Aspartate Amino Transferase 14 U/L (5-31); Bilirubin Total 0.2 mg/dL (0.0-1.0); Blood Urea Nitrogen 26 mg/dL (9-16); C Reactive Protein 0.29 mg/dL (< or = 0.50); Calcium 9.4 mg/dL (8.4-10.2); Carbon Dioxide 22 mmol/L (22-29); Chloride 110 mmol/L (96-108); Estimated Glomerular Filt Rate 41; Glucose Random 192 mg/dL (60-115); Potassium 4.6 mmol/L (3.3-5.1); Sodium 141 mmol/L (135-145); Total Protein 6.5 g/dL (6.5-8.0)
[2020-12-14 13:25] LABS: Erythrocyte Sedimentation Rate 27 MM/HR (0-20)
== END 2020-12-14 11:06 | disposition home or self-care (01) ==
LOC: HO.LAB 11:05
PROVIDERS: PCP Family Medicine; Visit Provider Student in an Organized Health Care Education/Training Program
DX: M35.3 Polymyalgia rheumatica (principal); M81.0 Age-related osteoporosis without current pathological fracture; M89.49 Other hypertrophic osteoarthropathy, multiple sites; Z79.52 Long term (current) use of systemic steroids
CPT/HCPCS: 36415; 80053; 85652; 86140; 99212

== ENCOUNTER 2021-01-23 14:07 | Outpatient (REF) | payer MEDICARE, SELFPAY ==
[2021-01-23 15:57] LABS: Basophils Percent Auto 0.5 % (0-2); Eosinophils Absolute Auto 0.2 X10*3/uL (0.0-0.4); Eosinophils Percent Auto 3.1 % (0-4); Hematocrit 36.3 % (37-47); Hemoglobin 11.3 g/dl (12.0-16.0); Imm Gran Abs Auto 0.03 X10*3/uL (0.00-0.03); Imm Gran Pct Auto 0.5 % (0.0-0.4); Lymphocytes Absolute Auto 1.5 X10*3/uL (1.2-4.9); Lymphocytes Percent Auto 23.7 % (20-40); MANUAL DIFF FLAG NO; Mean Corpuscular HGB Conc 31.1 g/dl (31.0-35.0); Mean Corpuscular Hemoglobin 29.7 pg (27.0-33.0); Mean Corpuscular Volume 95.5 fL (80-98); Mean Platelet Volume 10.6 fL (9.4-12.3); Monocytes Percent Auto 15.2 % (2-11); Neutrophils Absolute Auto 3.7 X10*3/uL (2.0-8.3); Platelet Count 283 X10*3/uL (160-400); Red Cell Distribution Width 13.2 % (11.0-16.0); White Blood Count 6.5 X10*3/uL (4.8-10.8)
[2021-01-23 16:31] LABS: Alanine Aminotransferase 19 U/L (0-31); Albumin Level 4.2 g/dL (3.5-5.0); Alkaline Phosphatase 49 U/L (39-117); Anion Gap 15 (12-20); Aspartate Amino Transferase 20 U/L (5-31); Bilirubin Total 0.3 mg/dL (0.0-1.0); Blood Urea Nitrogen 20 mg/dL (9-16); C Reactive Protein 0.49 mg/dL (< or = 0.50); Calcium 9.5 mg/dL (8.4-10.2); Carbon Dioxide 21 mmol/L (22-29); Chloride 109 mmol/L (96-108); Estimated Glomerular Filt Rate 44; Glucose Random 93 mg/dL (60-115); Potassium 4.9 mmol/L (3.3-5.1); Sodium 140 mmol/L (135-145); Total Protein 6.9 g/dL (6.5-8.0)
[2021-01-23 16:49] LABS: Erythrocyte Sedimentation Rate 29 MM/HR (0-20)
== END 2021-01-23 14:08 | disposition home or self-care (01) ==
LOC: HO.LAB 14:07
PROVIDERS: PCP Family Medicine; Visit Provider Nurse Practitioner Family
DX: M35.3 Polymyalgia rheumatica (principal)
CPT/HCPCS: 36415; 80053; 85025; 85652; 86140

== ENCOUNTER → 2021-01-26 11:41 | Outpatient (BNVA) | payer MEDICARE, SELFPAY | PROVIDERS: PCP Family Medicine; Visit Provider Nurse Practitioner Family | DX: M35.3 Polymyalgia rheumatica (principal); M81.0 Age-related osteoporosis without current pathological fracture; M89.49 Other hypertrophic osteoarthropathy, multiple sites; Z79.52 Long term (current) use of systemic steroids | CPT/HCPCS: 99212 ==

== ENCOUNTER 2021-02-03 07:46 | Day surgery (SDC) | payer MEDICARE, SELFPAY ==
[2021-01-30 15:04] VITALS: BMI 32.5
--- NOTE | 2021-02-02 10:39 | P.CONAN_ITS ---
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) Osteoporosis (Acute) Fracture of toe (Acute) Primary osteoarthritis involving multiple joints (Acute) Bilateral hand pain (Acute) Polymyalgia rheumatica (Acute) Past Medical History Medical History Chronic renal insufficiency Diabetes Elevated cholesterol Fibromyalgia GERD (gastroesophageal reflux disease) Hypothyroid Osteoarthritis Osteoporosis Polymyalgia rheumatica Family History Family History Mother HTN (hypertension) Father Alzheimer disease Surgical History Surgical History H/O colonoscopy History of back surgery History of esophagogastroduodenoscopy (EGD) History of hip surgery Hx of hysterectomy Hx of rotator cuff surgery Hx of tubal ligation Hx of vein stripping Social History Social History Household Members: Spouse and Children Housing: House Alcohol intake: never Patient Tobacco Use Status: Never used Tobacco Advance Directives: Yes Advance Directives Information Provided: Yes Advance Directives on File: Yes (previously on file) Advance Directives Date on File: 02/10/20 Meds Allergies Allergy/AdvReac Type Severity Reaction Status Date / Time No Known Allergies Allergy Verified 01/26/21 20:58 [No Known Allergies*] Home Medications Medication Instructions Recorded Confirmed Last Taken Type acetaminophen 325 mg capsule 650 mg PO Q4H PRN 03/29/20 12/14/20 Unknown History (Tylenol) amitriptyline 10 mg tablet 10 mg PO BEDTIME 03/29/20 12/14/20 Unknown History amlodipine 5 mg tablet 5 mg PO DAILY 03/29/20 12/14/20 Unknown History ascorbate calcium (vitamin C) 500 500 mg PO DAILY 03/29/20 12/14/20 Unknown History mg tablet atorvastatin 80 mg tablet (Lipitor) 80 mg PO DAILY 03/29/20 12/14/20 Unknown History calcium carbonate-vitamin D3 600 cap PO 03/29/20 12/14/20 Unknown History mg calcium-200 unit capsule (Calcium 600 + D(3)) citalopram 40 mg tablet 40 mg PO DAILY tab 03/29/20 12/14/20 Unknown History cranberry extract 300 mg tablet 300 mg PO DAILY 03/29/20 12/14/20 Unknown History cyanocobalamin (vitamin B-12) 1,000 mcg PO DAILY 03/29/20 12/14/20 Unknown History 1,000 mcg capsule diclofenac sodium 1 % topical gel 4 g TOPICAL QID PRN 03/29/20 12/14/20 Unknown History (Voltaren) docusate sodium 250 mg capsule 250 mg PO DAILY 03/29/20 12/14/20 Unknown History (Stool Softener) ferrous sulfate 325 mg (65 mg 325 mg PO DAILY 03/29/20 12/14/20 Unknown History iron) tablet levothyroxine 75 mcg tablet 75 mcg PO DAILY 03/29/20 12/14/20 Unknown History loratadine 10 mg tablet (Allergy 10 mg PO DAILY 03/29/20 12/14/20 Unknown History Relief (loratadine)) omeprazole 20 mg capsule,delayed 20 mg PO DAILY 03/29/20 12/14/20 Unknown History release propylene glycol 0.6 % eye drops 1 drp OPHTHALMIC (EYE) DAILY PRN 03/29/20 12/14/20 Unknown History (Systane Balance) sennosides 8.6 mg tablet (Natural 17.2 mg PO BEDTIME tab 03/29/20 12/14/20 Unknown History Senna Laxative) glipizide 5 mg tablet 5 mg PO BID 06/23/20 12/14/20 Unknown History conjugated estrogens 0.625 mg/gram 0.625 mg VAGINAL 2XW g 10/12/20 12/14/20 Unknown History vaginal cream (Premarin) mirabegron 25 mg tablet,extended 25 mg PO DAILY 10/12/20 12/14/20 Unknown History release 24 hr (Myrbetriq) Exam Exam Date and Time: February 02, 2021 1039 Height,Weight and Vital Signs: Height 5 ft 1 in Weight 78.018 kg Pertinent Lab Results Pertinent Lab Results: Laboratory Tests 01/23/21 01/23/21 14:38 14:38 WBC 6.5 Hgb 11.3 L Hct 36.3 L Plt Count 283 Sodium 140 Potassium 4.9 Chloride 109 H Carbon Dioxide 21 L BUN 20 H Creatinine 1.17 Narrative Narrative: EKG 11/2020 Vent. Rate : 095 BPM ? ? Atrial Rate : 095 BPM ?? P-R Int : 162 ms? QRS Dur : 076 ms ? ? QT Int : 356 ms ? ? ? P-R-T Axes : 044 -12 105 degrees ?? QTc Int : 447 ms ? Normal sinus rhythm Moderate voltage criteria for LVH, may be normal variant Abnormal QRS-T angle, consider primary T wave abnormality Abnormal ECG When compared with ECG of 16-DEC-2016 14:12, No significant change was found Assessment and Plan Assessment Anesthesia Assessment: Chart Reviewed Documented by User: Julia Maza MD 02/03/21 08:21 [facility] Past Medical History Medical History Chronic renal insufficiency Diabetes Elevated cholesterol Fibromyalgia GERD (gastroesophageal reflux disease) Hypothyroid Osteoarthritis Osteoporosis Polymyalgia rheumatica Family History Family History Mother HTN (hypertension) Father Alzheimer disease Family history of problems with anesthesia: No Surgical History Surgical History H/O colonoscopy History of back surgery History of esophagogastroduodenoscopy (EGD) History of hip surgery Hx of hysterectomy Hx of rotator cuff surgery Hx of tubal ligation Hx of vein stripping History of Problems with Anesthesia: No Social History Social History Household Members: Spouse and Children Housing: House Alcohol intake: never Patient Tobacco Use Status: Never used Tobacco Advance Directives: Yes Advance Directives Information Provided: Yes Advance Directives on File: Yes (previously on file) Advance Directives Date on File: 02/10/20 Meds Allergies Allergy/AdvReac Type Severity Reaction Status Date / Time No Known Allergies Allergy Verified 01/26/21 20:58 [No Known Allergies*] Home Medications Medication Instructions Recorded Confirmed Last Taken Type acetaminophen 325 mg capsule 650 mg PO Q4H PRN 03/29/20 12/14/20 Unknown History (Tylenol) amitriptyline 10 mg tablet 10 mg PO BEDTIME 03/29/20 12/14/20 Unknown History amlodipine 5 mg tablet 5 mg PO DAILY 03/29/20 12/14/20 Unknown History ascorbate calcium (vitamin C) 500 500 mg PO DAILY 03/29/20 12/14/20 Unknown History mg tablet atorvastatin 80 mg tablet (Lipitor) 80 mg PO DAILY 03/29/20 12/14/20 Unknown History calcium carbonate-vitamin D3 600 cap PO 03/29/20 12/14/20 Unknown History mg calcium-200 unit capsule (Calcium 600 + D(3)) citalopram 40 mg tablet 40 mg PO DAILY tab 03/29/20 12/14/20 Unknown History cranberry extract 300 mg tablet 300 mg PO DAILY 03/29/20 12/14/20 Unknown History cyanocobalamin (vitamin B-12) 1,000 mcg PO DAILY 03/29/20 12/14/20 Unknown History 1,000 mcg capsule diclofenac sodium 1 % topical gel 4 g TOPICAL QID PRN 03/29/20 12/14/20 Unknown History (Voltaren) docusate sodium 250 mg capsule 250 mg PO DAILY 03/29/20 12/14/20 Unknown History (Stool Softener) ferrous sulfate 325 mg (65 mg 325 mg PO DAILY 03/29/20 12/14/20 Unknown History iron) tablet levothyroxine 75 mcg tablet 75 mcg PO DAILY 03/29/20 12/14/20 Unknown History loratadine 10 mg tablet (Allergy 10 mg PO DAILY 03/29/20 12/14/20 Unknown History Relief (loratadine)) omeprazole 20 mg capsule,delayed 20 mg PO DAILY 03/29/20 12/14/20 Unknown History release propylene glycol 0.6 % eye drops 1 drp OPHTHALMIC (EYE) DAILY PRN 03/29/20 12/14/20 Unknown History (Systane Balance) sennosides 8.6 mg tablet (Natural 17.2 mg PO BEDTIME tab 03/29/20 12/14/20 Unknown History Senna Laxative) glipizide 5 mg tablet 5 mg PO BID 06/23/20 12/14/20 Unknown History conjugated estrogens 0.625 mg/gram 0.625 mg VAGINAL 2XW g 10/12/20 12/14/20 Unknown History vaginal cream (Premarin) mirabegron 25 mg tablet,extended 25 mg PO DAILY 10/12/20 12/14/20 Unknown History release 24 hr (Myrbetriq) Exam Airway Mallampati Class: II TM Dist: >3cm Neck ROM: Limited Denture: Lower Partial: Upper Assessment and Plan Assessment Anesthesia Assessment: Anesthesia Plan Discussed Final Anesthetic Review Family History of Problems with Anesthesia: No History of Problems with Anesthesia: No NPO: Yes ASA Class: III Final Preanesthetic Review: No Changes in Pt Med Stat, Meds/Allgs Chart Reviewed, Consent Obtained/Reviewed and Anes Risks/Benef Reviewed Patient Risk: Intermediate Procedure Risk: Low Assessment/Block/Sedation in SS: Assess/Block/Sedation-SS Anesthetic Plan Anesthetic Plan: MAC:
[2021-02-03 08:14] VITALS: BP 169/80; PULSE 115; RESP 17; TEMP 36.6; O2SAT 96; BMI 32.1
[2021-02-03 08:18] LABS: Glucose, Whole Blood 176 mg/dL (60-115)
--- NOTE | 2021-02-03 08:24 | P.CONAN_ITS ---
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) Osteoporosis (Acute) Fracture of toe (Acute) Primary osteoarthritis involving multiple joints (Acute) Bilateral hand pain (Acute) Polymyalgia rheumatica (Acute) Past Medical History Medical History Chronic renal insufficiency Diabetes Elevated cholesterol Fibromyalgia GERD (gastroesophageal reflux disease) Hypothyroid Osteoarthritis Osteoporosis Polymyalgia rheumatica Family History Family History Mother HTN (hypertension) Father Alzheimer disease Family history of problems with anesthesia: No Surgical History Surgical History H/O colonoscopy History of back surgery History of esophagogastroduodenoscopy (EGD) History of hip surgery Hx of hysterectomy Hx of rotator cuff surgery Hx of tubal ligation Hx of vein stripping History of Problems with Anesthesia: No Social History Social History Household Members: Spouse and Children Housing: House Alcohol intake: never Patient Tobacco Use Status: Never used Tobacco Advance Directives: Yes Advance Directives Information Provided: Yes Advance Directives on File: Yes (previously on file) Advance Directives Date on File: 02/10/20 Meds Allergies Allergy/AdvReac Type Severity Reaction Status Date / Time No Known Allergies Allergy Verified 01/26/21 20:58 [No Known Allergies*] Active Medications: Current Medications Lactated Ringer's (Lr) 1,000 mls @ 100 mls/hr IVCONT .Q10H COUNTS INCLUDE 234 BEDS AT THE [facility] Home Medications Medication Instructions Recorded Confirmed Last Taken Type acetaminophen 325 mg capsule 650 mg PO Q4H PRN 03/29/20 12/14/20 Unknown History (Tylenol) amitriptyline 10 mg tablet 10 mg PO BEDTIME 03/29/20 12/14/20 Unknown History amlodipine 5 mg tablet 5 mg PO DAILY 03/29/20 12/14/20 Unknown History ascorbate calcium (vitamin C) 500 500 mg PO DAILY 03/29/20 12/14/20 Unknown History mg tablet atorvastatin 80 mg tablet (Lipitor) 80 mg PO DAILY 03/29/20 12/14/20 Unknown History calcium carbonate-vitamin D3 600 cap PO 03/29/20 12/14/20 Unknown History mg calcium-200 unit capsule (Calcium 600 + D(3)) citalopram 40 mg tablet 40 mg PO DAILY tab 03/29/20 12/14/20 Unknown History cranberry extract 300 mg tablet 300 mg PO DAILY 03/29/20 12/14/20 Unknown History cyanocobalamin (vitamin B-12) 1,000 mcg PO DAILY 03/29/20 12/14/20 Unknown History 1,000 mcg capsule diclofenac sodium 1 % topical gel 4 g TOPICAL QID PRN 03/29/20 12/14/20 Unknown History (Voltaren) docusate sodium 250 mg capsule 250 mg PO DAILY 03/29/20 12/14/20 Unknown History (Stool Softener) ferrous sulfate 325 mg (65 mg 325 mg PO DAILY 03/29/20 12/14/20 Unknown History iron) tablet levothyroxine 75 mcg tablet 75 mcg PO DAILY 03/29/20 12/14/20 Unknown History loratadine 10 mg tablet (Allergy 10 mg PO DAILY 03/29/20 12/14/20 Unknown History Relief (loratadine)) omeprazole 20 mg capsule,delayed 20 mg PO DAILY 03/29/20 12/14/20 Unknown History release propylene glycol 0.6 % eye drops 1 drp OPHTHALMIC (EYE) DAILY PRN 03/29/20 12/14/20 Unknown History (Systane Balance) sennosides 8.6 mg tablet (Natural 17.2 mg PO BEDTIME tab 03/29/20 12/14/20 Unknown History Senna Laxative) glipizide 5 mg tablet 5 mg PO BID 06/23/20 12/14/20 Unknown History conjugated estrogens 0.625 mg/gram 0.625 mg VAGINAL 2XW g 10/12/20 12/14/20 Unknown History vaginal cream (Premarin) mirabegron 25 mg tablet,extended 25 mg PO DAILY 10/12/20 12/14/20 Unknown History release 24 hr (Myrbetriq) Exam Exam Date and Time: February 03, [id number] Height,Weight and Vital Signs: Height 5 ft 1 in Weight 78.018 kg Pertinent Lab Results Pertinent Lab Results: Laboratory Tests 02/03/21 08:10 POC Glucose 176 H Airway Mallampati Class: II TM Dist: >3cm Neck ROM: Limited Denture: Lower Partial: Upper Assessment and Plan Assessment Anesthesia Assessment: Anesthesia Plan Discussed and Chart Reviewed Final Anesthetic Review Family History of Problems with Anesthesia: No History of Problems with Anesthesia: No NPO: Yes ASA Class: III Final Preanesthetic Review: No Changes in Pt Med Stat, Meds/Allgs Chart Reviewed, Consent Obtained/Reviewed and Anes Risks/Benef Reviewed Patient Risk: Intermediate Procedure Risk: Low Assessment/Block/Sedation in SS: Assess/Block/Sedation- Anesthetic Plan Anesthetic Plan: MAC: Disposition: Standard PACU
[2021-02-03] MEDS: Lactated Ringers 1,000 ML 100 ML IVCONT (08:26)
[2021-02-03 09:18] VITALS: BP 144/71; PULSE 114; RESP 20; TEMP 36.4; O2SAT 98
--- NOTE | 2021-02-03 09:22 | P.BOP_ITS ---
Brief Operative Note Date of Service: 02/03/21 Pre-op diagnosis: Dysphagia Post-op diagnosis: other (Hiatal hernia, Gerd, R/O EOE, ? 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 Esophagus at 25cm) Condition: stable Disposition: PACU
[2021-02-03 09:41] VITALS: BP 150/64; PULSE 106; RESP 18; TEMP 36.4; O2SAT 96
--- NOTE | 2021-02-03 09:51 | OP_ITS ---
SURGEON: Otoniel Moya MD INDICATIONS: The patient presents for evaluation of chronic gastroesophageal reflux and dysphagia. Full consent has been obtained from her for this, including risks of bleeding and perforation. PREOPERATIVE DIAGNOSIS: POSTOPERATIVE DIAGNOSIS: PROCEDURE PERFORMED: Esophagogastroduodenoscopy with balloon dilation of gastroesophageal junction and biopsies. ESTIMATED BLOOD LOSS: COMPLICATIONS: ANESTHESIA: Monitored anesthesia care. ASSISTANTS: SPECIMENS: PREOPERATIVE DIAGNOSES: Gastroesophageal reflux and dysphagia. POSTOPERATIVE DIAGNOSES: Gastroesophageal reflux and dysphagia, hiatal hernia, rule out eosinophilic esophagitis. DESCRIPTION OF PROCEDURE: The patient was placed in the left lateral decubitus position. The Olympus video gastroscope was passed in the posterior oropharynx and upper esophagus. The scope was passed slowly into the distal esophagus. The esophagus itself was somewhat dilated with some retained fluid. Subjectively, the esophageal motility did appear to be diminished. The gastroesophageal junction appeared at between 33 and 34 cm. There was some irregularity consistent with reflux and perhaps some small areas of Fontaine's mucosa. There was no esophagitis, mass, ulceration, nor stricture. The scope easily entered into the stomach. There was a small to moderate-sized hiatal hernia. The scope was advanced to the pylorus and the duodenum was cannulated to the descending portion. The duodenum including the bulb appeared normal without mass or ulceration. Scope was withdrawn back into the stomach. The gastric antrum and body appeared normal with good peristalsis. The scope was retroflexed visualizing the proximal stomach carefully, which appeared normal, without any sign of mass or ulceration. The scope was straightened. The scope was withdrawn back in the esophagus. Given her symptomatology, I did use a [employer] incremental balloon to dilate the gastroesophageal junction from 18 mm to 20 mm at the recommended pressure for between 30 and 60 seconds each. The balloon itself, even at the 20 mm inflation, pulled easily into and out of the stomach. There was no appreciable change in the gastroesophageal junction nor any heme post-dilation. The scope was withdrawn through the remainder of the esophagus. The mucosa appeared normal. Biopsies were obtained at 25 cm. Again, the esophagus appeared to be somewhat dilated and subjectively had diminished peristalsis. The scope was withdrawn from the patient. She tolerated the procedure well and was returned to the recovery area in stable condition. IMPRESSION: 1. Hiatal hernia. 2. Gastroesophageal reflux. 3. Status post balloon dilation of gastroesophageal junction. 4. Rule out eosinophilic esophagitis. 5. Somewhat dilated esophagus and with subjectively diminished peristalsis. PLAN: The results of biopsies will be checked. She will have her omeprazole increased from 20 mg daily to 20 mg b.i.d. I suspect she will need esophageal motility studies to rule out any underlying motility problems such as achalasia. She will be seen in followup. This has been discussed with the daughter. MD BERLIN Nino/KYLE / [id number]
== END 2021-02-03 10:55 | disposition home or self-care (01) ==
PROVIDERS: PCP Family Medicine; Visit Provider Internal Medicine
PROC: (CPT 43249; principal; 2021-02-03 08:30)
DX: R13.19 Other dysphagia (principal); K21.9 Gastro-esophageal reflux disease without esophagitis; K44.9 Diaphragmatic hernia without obstruction or gangrene; E11.9 Type 2 diabetes mellitus without complications; I10 Essential (primary) hypertension; Z79.84 Long term (current) use of oral hypoglycemic drugs; Z79.899 Other long term (current) drug therapy
CPT/HCPCS: 43249; 43239; 82947; 88305; C1726

== ENCOUNTER 2021-02-08 08:54 | Outpatient (REF) | payer MEDICARE, SELFPAY ==
--- NOTE | ~2021-02-08 | XR_ITS ---
EXAMINATION: XR HAND, RIGHT XR HAND, LEFT CLINICAL INFORMATION: Right and left hand pain. COMPARISON: Left hand and wrist radiographs dated 12/16/2016. Right and left hand radiographs dated 01/13/2016. TECHNIQUE: AP, oblique, and lateral views of the right and left hand. FINDINGS: Right Hand: No acute fracture or dislocation. Normal carpal alignment. Joint space narrowing or marginal osteophytes throughout the metacarpophalangeal and interphalangeal joints, most prominent at the third metacarpophalangeal joint. No osseous erosion. No abnormal soft tissue calcification. Left Hand: No acute fracture or dislocation. Normal carpal alignment. Joint space narrowing with marginal osteophytes throughout the metacarpophalangeal and interphalangeal joints, most prominent at the first interphalangeal joint. No new osseous erosion. No abnormal soft tissue calcification. XR/XR hand RT min 3V IMPRESSION: Right Hand: Osteoarthritis throughout the metacarpophalangeal and interphalangeal joints, most prominent at the third metacarpophalangeal joint, progressed when compared to the prior examination. Left Hand: Osteoarthritis throughout the metacarpophalangeal and interphalangeal joints, most prominent at the first interphalangeal joint, progressed when compared to the prior examination.
--- NOTE | ~2021-02-08 | XR_ITS ---
EXAMINATION: XR HAND, RIGHT XR HAND, LEFT CLINICAL INFORMATION: Right and left hand pain. COMPARISON: Left hand and wrist radiographs dated 12/16/2016. Right and left hand radiographs dated 01/13/2016. TECHNIQUE: AP, oblique, and lateral views of the right and left hand. FINDINGS: Right Hand: No acute fracture or dislocation. Normal carpal alignment. Joint space narrowing or marginal osteophytes throughout the metacarpophalangeal and interphalangeal joints, most prominent at the third metacarpophalangeal joint. No osseous erosion. No abnormal soft tissue calcification. Left Hand: No acute fracture or dislocation. Normal carpal alignment. Joint space narrowing with marginal osteophytes throughout the metacarpophalangeal and interphalangeal joints, most prominent at the first interphalangeal joint. No new osseous erosion. No abnormal soft tissue calcification. XR/XR hand LT min 3V IMPRESSION: Right Hand: Osteoarthritis throughout the metacarpophalangeal and interphalangeal joints, most prominent at the third metacarpophalangeal joint, progressed when compared to the prior examination. Left Hand: Osteoarthritis throughout the metacarpophalangeal and interphalangeal joints, most prominent at the first interphalangeal joint, progressed when compared to the prior examination.
== END 2021-02-08 08:55 | disposition home or self-care (01) ==
LOC: HO.XRAY 08:54
PROVIDERS: PCP Family Medicine; Visit Provider Nurse Practitioner Family
DX: M79.641 Pain in right hand (principal); M79.642 Pain in left hand
CPT/HCPCS: 73130

== ENCOUNTER → 2021-02-20 09:36 | Outpatient (BNVA) | payer MEDICARE, SELFPAY | PROVIDERS: PCP Family Medicine; Visit Provider Internal Medicine | DX: M79.641 Pain in right hand (principal); M79.642 Pain in left hand | CPT/HCPCS: 99202 ==

== ENCOUNTER 2021-03-01 10:32 | Outpatient (REF) | payer MEDICARE, SELFPAY ==
--- NOTE | ~2021-03-01 | MM_ITS ---
EXAMINATION: MM SCREENING DIGITAL BREAST TOMOSYNTHESIS, BILATERAL CLINICAL INFORMATION: Screening. Asymptomatic. COMPARISON: Mammography: 01/05/2020, 05/06/2018, 03/06/2017 TECHNIQUE: Digital breast tomosynthesis is performed in both the craniocaudal and mediolateral oblique views along with computer-aided detection (CAD). Synthesized 2D images are generated from the tomosynthesis. Additional views are provided: Exaggerated left CC, left MLO. FINDINGS: There are scattered areas of fibroglandular density (ACR BI-RADS breast composition Category b). There are no significant masses, abnormal calcifications, or other abnormalities. Parenchymal pattern is similar to prior studies. No significant changes. MM/MM tomosynthesis screening BI IMPRESSION: No mammographic evidence of malignancy. ASSESSMENT: BI-RADS 1: Negative RECOMMENDATION: Routine annual mammography screening. This patient's information was entered into a reminder system with a target due date for their next mammogram.
[2021-03-01 12:59] LABS: Appearance Urine CLOUDY; Color Urine YELLOW; Glucose Urine UA NEG (NEG); Leukocyte Esterase Urine 2+ (NEG); Nitrite Urine POS (NEG); Specific Gravity - Urine 1.025 (1.005-1.025); Urine Blood NEG (NEG); Urine Ketones NEG (NEG); Urine Protein 2+ MG/DL (NEG-TRACE)
[2021-03-01 14:10] LABS: Bacteria Urine 2+ /LPF; Squamous Epithelial Cell Urine 3+ /LPF; WBC Urine 50-75 /HPF (0-4)
[2021-03-01 14:11] LABS: Mucus Urine 2+ /LPF; Renal Epithelial Cells Urine 1+ /LPF
== END 2021-03-01 10:33 | disposition home or self-care (01) ==
LOC: HO.MAMMO 10:32
PROVIDERS: PCP Family Medicine; Visit Provider Family Medicine
DX: Z12.31 Encounter for screening mammogram for malignant neoplasm of breast (principal); N39.0 Urinary tract infection, site not specified; R41.0 Disorientation, unspecified
CPT/HCPCS: 77063; 77067; 81001; 81003; 87086; 87147; 87186

== ENCOUNTER 2021-03-15 09:28 | Outpatient (REF) | payer MEDICARE, SELFPAY ==
--- NOTE | 2021-03-15 09:31 | EMG_ITS ---
This is an 85-year-old woman with 2-month history of bilateral upper extremity pain and numbness and dropping things. She walks with a walker. PHYSICAL EXAMINATION: On examination, she has mild weakness of the thenar eminence and abductor pollicis brevis, right more than left. No sensory deficits. IMPRESSION: Carpal tunnel syndrome. Nerve conduction EMG study: Moderately severe carpal tunnel syndrome on the right, moderate carpal tunnel syndrome on the left. Normal EMG of the right C5-T1 innervated muscles. MD ANDREA Candelaria/KYLE / [id number]
== END 2021-03-15 09:29 | disposition home or self-care (01) ==
LOC: HO.NEURO 09:28
PROVIDERS: PCP Family Medicine; Visit Provider Internal Medicine
DX: M79.641 Pain in right hand (principal); M79.642 Pain in left hand
CPT/HCPCS: 95885; 95913

== ENCOUNTER → 2021-03-20 14:54 | Outpatient (BNVA) | payer MEDICARE, SELFPAY | PROVIDERS: PCP Family Medicine; Visit Provider Internal Medicine | DX: Z51.81 Encounter for therapeutic drug level monitoring (principal); M96.1 Postlaminectomy syndrome, not elsewhere classified; G56.00 Carpal tunnel syndrome, unspecified upper limb | CPT/HCPCS: 99212 ==

== ENCOUNTER 2021-03-21 14:00 | Outpatient (RCR) | payer MEDICARE, SELFPAY ==
--- NOTE | 2021-02-20 14:38 | MHC.OT.OEV ---
[address] [phone] F: [phone] Occupational Therapy Evaluation Diagnosis: B/L HAND PAIN Date of Onset: 01/30/21 Attending Provider: Julia Lakhani Prescribed Treatment: EMILIE LEVI Follow Up Appointment: 04/13/21 History of Current Condition: REPORTS 3 WEEK FLARE-UP OF B/L HAND OA. HAS HISTORY OF LEFT > RIGHT HAND PAIN. SEEN IN OUTPATIENT OT NEXT PROLIA INJECTION 04/13/21. CAME FROM PAIN MANAGEMENT THIS MORNING 02/20/21. DAUGHTER STATES SHE WILL BE STARTING ON [place]. HAS F/U APPOINTEMENT IN PAIN MANAGEMENT 03/20/21. 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 HOBBIES INCLUDE WATCHING TV, TRIES TO COMPLETE BASIC EXERCISES DAILY. ASSIST WITH PULLING UP PANTS AND UNDERWEAR, SOCKS. ASSIST IN SHOWER. ASSIST WITH IADLs AT BASELINE. Living Situation, Family and/or Social Support: LIVES WITH SPOUSE, DAUGHTER. OTHER DAUGTHER ALSO PRESENT DAILY. HAS 24/7 SUPERVISION. Current Level of Function and Occupation Self Care, Employment, Leisure: DIFFICUTIES WITH HOLDING MUG, SILVERWEAR FOR SELF FEEDING. DAUGHTER ASSISTS WITH LB DRESSING > UB DRESSING. REPORTS MORE DIFFICULTIES WITH PERFORMING HYGIENE / TOILETING TASKS. SOME MILD DIFFICULTIES WITH LOCKING / UNLOCKING BREAKS ON ROLLATOR. Sleep: MILD DIFFICULTIES. TAKING MEDICATION AT NIGHT TO AIDE IN SLEEP. Driving: DOES NOT DRIVE Vision: WEARS GLASSES, TROUBLE WITH READING SMALL PRINTS Balance: AMBULATES WITH ROLLATOR, STEADY GAIT. Pain Assessment Pain Score: 7-10/10 Pain Scale Used: Numeric (0 - 10) Pain Location and Description: LEFT D3 PIPj 8/10, D2 AND D4 7/10 AT REST 10/10 WITH USE RIGHT D3 PIPj 7/10 AT REST Aggravating Factors: GRIPPING, USING FOR DAILY ACTIVITIES Alleviating Factors: She is taking tylenol, baclofen, volaren gel topical and tramadol. running hands under warm water for relief. Skin and Soft Tissue Assessment Skin and Soft Tissue: Swelling Comments: INCREASED EDEMA IN B/L PIPj OF D3 Sensory Assessment Comments: SEMMES YAHAIRA LOSS OF PROTECTIVE SENSATION (SIZE: 4.56) IN R D2, D3, AND D4. DEEP PRESSURE SENSATION ONLY (SIZE 6.65) IN L D3 DENIES DIFFICULTIES WITH IDENTIFYING HEAT/COLD WITH DAILY ACTIVITIES. DAUGHTER ASSISTS WITH ASSURING PROPER TEMPERATURE WHEN DRINKING HOT BEVERAGES OR TAKING SHOWERS. Pt DOES NOT DO MEAL PREP/ STOVE USE. Edema Assessment Upper Extremity: Right Impaired Left Impaired Lower Extremity: Comments: B/L PIPj OF D3. UNABLE TO WEAR [place] RINGS ON L HAND. WILL TAKE MEASUREMENTS AT F/U SESSIONS DUE TO TIME CONSTRAINT. Dexterity Assessment Dexterity: B/L Impaired Comments: DIFFICULTIES ROTATING DOWELS WITHOUT USE OF TESTING BOARD DURING FUNCTIONAL DEXTERITY TEST LEFT HAND INABILITY TO DO >4 DOWELS WITH NEED TO STOP TESTING. RIGHT HAND: 55 SECONDS YET PLACING DOWEL ON TESTING BOARD Special Tests Comments: AROM(PROM) Strength Shoulder Flexion: Extension: Abduction: Internal Rotation: External Rotation: Comments: IMPAIRED IN L > R SH FLEXION Flexion: Extension: Abduction: Internal Rotation: External Rotation: Comments: Elbow Flexion: L 145, R 150 Extension: L 0, R 0 Pronation: Supination: Comments: Flexion: L 4-/5, R 4/5 Extension: L 4-/5, L 4/5 Pronation: Supination: Comments: Wrist Flexion: L 45, R 40 Extension: L 45, R 45 Ulnar Deviation: Radial Deviation: Comments: REPORTS INCREASED PAIN WITH WRIST ROM IN L > R Flexion: Extension: Ulnar Deviation: Radial Deviation: Comments: Thumb Thumb CMC Flexion: Thumb MCP Flexion: Thumb IP Flexion: Radial Abduction: Palmar Abduction: [place] (Kapandji 0-10): L 4/10, R 5/10 Comments: Digits Index MCP: PIP: L 76, R 90 DIP: Long MCP: PIP: L 76, R 90 DIP: Ring MCP: PIP: L 64, R 92 DIP: Small MCP: PIP: DIP: Comments: Gross Grasp: L 0, R 10 Lateral Pinch: L 4, R 4 Two-Point Pinch: Three-Jaw Juvencio: Comments: GUARDING OF L D3, UNABLE TO GRASP DYNAMOMETER WITH ALL DIGITS Patient Education Primary Language: Performance Engineer Required: Yes Current Knowledge: Minimal, needs reinforcement Teaching Method: Demonstration Handouts Phone Call Verbal Education Needs Identified on Evaluation: ADL's Disease Information Equipment Use Exercise Pain Safety How did patient/family demonstrate learning? Patient verbalizes Family/SO demonstrates Family/SO verbalizes Needs reinforcement Barriers to Learning: None Readiness for Learning: Accepting Who was educated? Patient Family/other Comments: SUPPORTIVE DAUGHTER PRESENT AT OT EVAL. DECLINES NEED FOR PIER HAND HELPER FAMILY PREFERS TO TRANSLATE AT THIS TIME. HAS SUPPORTIVE FAMILY WITHIN THE HOME TO ASSIST NEEDED. Plan of Care Assessment: ALEX RETURNS TO OUTPATIENT OT WITH INCREASED PAIN IN LEFT > RIGHT HAND DUE TO OA. PATIENT AND HER DAUGHTER REPORT INCREASED DIFFICULTIES WITH SELF FEEDING, HOLDING SMALL OBJECTS AND COMPLETING BADLs. INCREASED EDEMA PRESENT IN IP JOINTS, MOST PROMINENT IN B/L PIPj OF THE LONG FINGERS. Pt UNABLE TO CLOSE LEFT HAND DUE TO ROM LIMITATIONS. Pt AND FAMILY WOULD BENEFIT FROM ADDITIONAL EDUCATION ON COMPENSATORY STRATEGIES, AND PERHAPS USE OF AE TO PROMOTE INDEPENDENCE WITH BADLs. Pt WITH EXTENSIVE PMHX OF ARTHRITIS IN MULTIPLE JOINTS, INCLUDING THE BACK. AN 89% LIMITATION IS REPORTED PER THE QUICK DASH ASSESSMENT. WILL CONTINUE TO FOLLOW FOR SKILLED OT TO ACHIEVE OPTIMAL FUNCTIONAL LEVEL AND IMPROVE QOL. Pt'S GOAL IS TO FEEL BETTER. STG Duration: 2 WEEKS Short Term Goals: S WITH HEP WITH FAMILY ASSIST NEEDED S WITH HOME PARAFFIN UNIT AND/OR USE OF HEAT MODALITIES REPORT <6/10 PAIN IN B/L HANDS AT REST S JOINT PROTECTION STRATEGIES Pt/CAREGIVER ED ON AE/AT AND TRIAL PRACTICE WITH AE INCLUDING BUSINESS INTELLIGENCE ANALYST LTG Duration: 4 WEEKS Locomotive Firer Goals: KAPANDJI SCORE TO 7/10 B/L'LY FOR ADLs COMPLETE ADL CLOSURE BOARD WITH MIN DIFFICULTIES INCREASE B/L GRASP BY 10 POUNDS IND EDEMA MANAGEMENT TECHNIQUES REPORT <4/10 PAIN WITH LIGHT ADLs Frequency and Duration: The patient will be seen 2X/WEEK FOR 4 WEEKS Treatment Plan: Therapeutic Exercise Therapeutic Activity Home Exercise Program Splinting Neuro Re-ed Patient Education Desensitization/Sensory Re-ed Edema Control ADL Training Ultrasound NMES Iontophoresis Paraffin Fluidotherapy MHP Cold Packs Joint Mobilization Soft Tissue Mobilization Kinesiotaping Other (see comments) Electronically Signed By: SHAWN GARCIA OTR/L Reviewed/agree with student documentation: N/A Therapist: Please sign and return to therapist, Thank you for your referral.
--- NOTE | 2021-03-21 14:44 | MHC.OT.DC ---
[address] [phone] F: [phone] Occupational Therapy Discharge Note Provider: Julia Lakhani Diagnosis: B/L HAND PAIN Date of Evaluation: 02/20/21 Date of Discharge: 03/21/21 Treatments to Date: 8 Cancellations to Date: 1 Discharge Status: Improved Function Discharge Summary: MS PÉREZ REPORTS DEC PAIN AND DEC JT STIFFNESS WITH INC EASE MAKING A FIST. Pt RECEIVING SOME ASSISTANCE FROM ALEX FOR COMPLETION OF HEP. RECOMMEND HOME PARAFFIN UNIT Pt REPORTS RELIEF AFTER USE IN THE OT CLINIC. D/C OT SERVICES AT THIS TIME AND TRANSITION TO A HOME BASED PROGRAM. Electronically Signed By: STEPHANIE SARABIA/Farida Reviewed/agree with student documentation: N/A Therapist: Please Sign and return to therapist, thank you for your referral.
== END 2021-03-22 10:45 | disposition home or self-care (01) ==
LOC: HO.OT 14:00
PROVIDERS: PCP Family Medicine; Visit Provider Nurse Practitioner Family
DX: M89.49 Other hypertrophic osteoarthropathy, multiple sites (principal)
CPT/HCPCS: 97035; 97110; 97166; 97530

== ENCOUNTER 2021-03-21 14:46 | Outpatient (REF) | payer MEDICARE, SELFPAY ==
--- NOTE | ~2021-03-21 | XR_ITS ---
EXAMINATION: XR LUMBOSACRAL SPINE CLINICAL INFORMATION: Postlaminectomy syndrome COMPARISON: 02/02/2016 TECHNIQUE: Three views of the lumbosacral spine. FINDINGS: Interspinous spacing device present at L4-L5. Stable grade 1 anterolisthesis of L4 and L5 approximately 5 mm. Moderate loss of disc space height at L4-L5 and L5-S1. Mild loss of disc space height at L1-L2. Endplate osteophytes present throughout the imaged lower thoracic and lumbar spine. Moderate facet arthropathy at L4-L5 and L5-S1. Paraspinal soft tissues unremarkable. XR/XR lumbar spine 2-3V IMPRESSION: No acute findings. Severe lumbar spondylosis redemonstrated, with interval progression since the prior exam
[2021-03-21 16:05] LABS: C Reactive Protein 0.65 mg/dL (< or = 0.50)
[2021-03-21 17:08] LABS: Erythrocyte Sedimentation Rate 42 MM/HR (0-20)
== END 2021-03-21 14:47 | disposition home or self-care (01) ==
LOC: HO.LAB 14:46
PROVIDERS: Absent Provider Internal Medicine; PCP Family Medicine; Visit Provider Nurse Practitioner Family
DX: M35.3 Polymyalgia rheumatica (principal); M96.1 Postlaminectomy syndrome, not elsewhere classified
CPT/HCPCS: 36415; 72100; 85652; 86140

== ENCOUNTER → 2021-03-28 10:30 | Outpatient (BNVA) | payer MEDICARE, SELFPAY | PROVIDERS: PCP Family Medicine; Visit Provider Nurse Practitioner Family | DX: M81.0 Age-related osteoporosis without current pathological fracture (principal); M35.3 Polymyalgia rheumatica; M89.49 Other hypertrophic osteoarthropathy, multiple sites | CPT/HCPCS: 99212 ==

== ENCOUNTER → 2021-04-12 10:58 | Outpatient (BNVA) | payer MEDICARE, SELFPAY | PROVIDERS: PCP Family Medicine; Visit Provider Orthopaedic Surgery | DX: G56.03 Carpal tunnel syndrome, bilateral upper limbs (principal) | CPT/HCPCS: 99202 ==

== ENCOUNTER → 2021-04-13 11:27 | Outpatient (BNVA) | payer MEDICARE, SELFPAY | PROVIDERS: PCP Family Medicine; Visit Provider Nurse Practitioner Family | DX: M81.0 Age-related osteoporosis without current pathological fracture (principal) | CPT/HCPCS: 96372 ==

== ENCOUNTER 2021-05-09 08:27 | Outpatient (REF) | payer MEDICARE, SELFPAY ==
--- NOTE | ~2021-05-09 | FL_ITS ---
EXAMINATION: FL BARIUM SWALLOW CLINICAL INFORMATION: Dysphagia. COMPARISON: None. TECHNIQUE: Barium swallow examination is performed using fluoroscopic evaluation in addition to multiple fluoroscopic spot views. The patient is imaged both upright and prone and using both thick and thin sulfate along with effervescent granules. Fluoroscopy time: 1.3 minutes DAP: 7.210 Gy-cm2 Images: 87 FINDINGS: Following oral administration of thick barium and effervescent granules in upright view, there is normal propagation of bolus from the oral cavity through the pharynx and esophagus and into the stomach without any evidence of obstruction, narrowing or stricture. On oral administration of barium-coated turkey in upright view, there is normal propagation of bolus from the oral cavity through the pharynx and widely-distended esophagus into the stomach. The gastroesophageal junction is widely patent. No hiatal hernia seen. FL/FL barium swallow IMPRESSION: Unremarkable barium swallow with thin and thick barium. There is no obstruction, hiatal hernia or reflux.
== END 2021-05-09 08:28 | disposition home or self-care (01) ==
LOC: HO.XRAY 08:27
PROVIDERS: Visit Provider Internal Medicine
DX: R13.10 Dysphagia, unspecified (principal)
CPT/HCPCS: 74220

== ENCOUNTER 2021-06-01 10:04 | Day surgery (SDC) | payer MEDICARE, SELFPAY ==
[2021-06-01 10:22] VITALS: BP 157/87; PULSE 99; RESP 18; TEMP 36.6; O2SAT 98
[2021-06-01 12:59] VITALS: BP 140/81; PULSE 110; RESP 18; TEMP 36.7; O2SAT 99
--- NOTE | 2021-06-01 13:05 | MHC.SHP ---
Pre-Procedural Eval Section A Date of Service: 06/01/21 The patient is an INPATIENT: No The History & Physical has been completed within 30 days and I have reviewed it.: Yes Section B Chief Complaint: Carpal Tunnel Syndrome Allergies: Allergies Allergy/AdvReac Type Severity Reaction Status Date / Time No Known Allergies Allergy Verified 04/12/21 11:48 [No Known Allergies*] Plan I have reviewed the history and physical and performed a pertinent physical examination on my patient. No changes have occurred unless specified.
--- NOTE | 2021-06-01 13:05 | W.PM.OPN ---
Operative Note Operative Note Date of Service: 06/01/21 Narrative: Preop diagnosis: 1. Right Carpal tunnel syndrome Postop diagnosis: same Procedure: 1. Right Carpal tunnel release Surgeon: Lauren Nye MD Anesthesia: local block using 1% lidocaine with epinephrine Findings: Thickened transverse carpal ligament. EBL: Less than 5 mL Specimens: None Complications: None Disposition: Brought to recovery room in stable condition Plan: Follow-up for 10-14 days for wound check and suture removal Indications: The patient is 85 years old, with right carpal tunnel syndrome that has been unresponsive to nonoperative management. The risks and benefits of operative treatment including but not limited to risk of damage to blood vessels, nerves, tendons, infection, persistent pain, persistent symptoms, or possible need for additional surgery were discussed with the patient and the patient wishes to proceed with surgery. Procedure: Once consent was obtained a local block was performed using a combination of 1% lidocaine with epinephrine. The patient was then brought back to the operating suite and placed on the operative table in supine position. A tourniquet was applied to the proximal aspect of the right upper extremity and the limb was prepped and draped in a standard surgical fashion. Once assured that we had a good block, a 1.5 cm longitudinal incision was made centered over the carpal tunnel. The incision was made through the skin to the subcutaneous tissues using a #15 blade. Dissection was made down to the level of the transverse carpal ligament with care being taken to protect the palmar cutaneous nerve. Once the transverse carpal ligament was clearly visualized, a longitudinal incision was made in the transverse carpal ligament 1st using a #15 blade, then using tenotomy scissors under direct visualization. Care was taken to look for and protect the motor branch of the median nerve when seen in this area. Once satisfied with our carpal tunnel release the wound was copiously irrigated with normal saline and hemostasis was obtained with a brief period of local pressure. The skin edges were reapproximated with some 5.0 nylon suture material and a sterile dressing was applied. The patient appears to have tolerated the procedure well and with no complications. All digits were well vascularized at the conclusion of the case.
== END 2021-06-01 13:00 | disposition home or self-care (01) ==
PROVIDERS: PCP Family Medicine; Visit Provider Orthopaedic Surgery
PROC: (CPT 64721; principal; 2021-06-01 11:00)
DX: G56.01 Carpal tunnel syndrome, right upper limb (principal); E11.22 Type 2 diabetes mellitus with diabetic chronic kidney disease; N18.9 Chronic kidney disease, unspecified; E78.00 Pure hypercholesterolemia, unspecified; M81.0 Age-related osteoporosis without current pathological fracture; M35.3 Polymyalgia rheumatica; M79.7 Fibromyalgia; Z79.899 Other long term (current) drug therapy
CPT/HCPCS: 64721

== ENCOUNTER → 2021-06-14 10:47 | Outpatient (BNVA) | payer MEDICARE, SELFPAY | PROVIDERS: PCP Family Medicine; Visit Provider Orthopaedic Surgery | DX: G56.03 Carpal tunnel syndrome, bilateral upper limbs (principal) | CPT/HCPCS: 99212 ==

== ENCOUNTER 2021-06-20 10:30 | Outpatient (REF) | payer MEDICARE, SELFPAY ==
[2021-06-20 12:06] LABS: Erythrocyte Sedimentation Rate 36 MM/HR (0-20)
[2021-06-20 12:34] LABS: Vitamin D 25-OH Total 23.6 ng/mL (>30)
[2021-06-20 12:45] LABS: Alanine Aminotransferase 12 U/L (0-31); Albumin Level 3.9 g/dL (3.5-5.0); Alkaline Phosphatase 55 U/L (39-117); Anion Gap 13 (12-20); Aspartate Amino Transferase 15 U/L (5-31); Bilirubin Total 0.3 mg/dL (0.0-1.0); Blood Urea Nitrogen 25 mg/dL (9-16); C Reactive Protein 0.29 mg/dL (< or = 0.50); Calcium 9.1 mg/dL (8.4-10.2); Carbon Dioxide 23 mmol/L (22-29); Chloride 109 mmol/L (96-108); Estimated Glomerular Filt Rate 47; Glucose Random 125 mg/dL (60-115); Potassium 4.9 mmol/L (3.3-5.1); Sodium 140 mmol/L (135-145); Total Protein 6.7 g/dL (6.5-8.0)
== END 2021-06-20 10:31 | disposition home or self-care (01) ==
LOC: HO.LAB 10:30
PROVIDERS: PCP Family Medicine; Visit Provider Nurse Practitioner Family
DX: M81.0 Age-related osteoporosis without current pathological fracture (principal); M35.3 Polymyalgia rheumatica
CPT/HCPCS: 36415; 80053; 82306; 85652; 86140

== ENCOUNTER → 2021-07-10 10:53 | Outpatient (BNVA) | payer OTHER, SELFPAY | PROVIDERS: PCP Family Medicine; Visit Provider Nurse Practitioner Family | DX: M35.3 Polymyalgia rheumatica (principal); M81.0 Age-related osteoporosis without current pathological fracture; M89.49 Other hypertrophic osteoarthropathy, multiple sites | CPT/HCPCS: 99212 ==

== ENCOUNTER 2021-07-19 15:15 | Outpatient (REF) | payer MEDICARE, SELFPAY ==
--- NOTE | ~2021-07-19 | XR_ITS ---
EXAMINATION: XR SHOULDER, LEFT CLINICAL INFORMATION: Pain in left shoulder. COMPARISON: X-rays of the left shoulder August 2014. MRI of the left shoulder November 2014. TECHNIQUE: AP external rotation, Grashey, scapular Y, and axillary views of the left shoulder. FINDINGS: GLENOHUMERAL JOINT: There is nonuniform joint space narrowing with marginal osteophytes indicative of [id number] glenohumeral arthrosis. The humeral head is subluxed cephalad nearly abutting the undersurface of the acromion consistent with rotator cuff tear. There is hypertrophic arthrosis of the acromioclavicular joint. There is ossification or calcification overlying the greater tuberosity of uncertain etiology and significance. This could reflect calcification in the rotator cuff reflective of calcific tendinosis or calcific tendinitis or reflect loose bodies extending into the biceps tendon sheath. XR/XR shoulder LT min 2V IMPRESSION: Degenerative changes of the left shoulder increased compared to prior x-ray in 2015.
--- NOTE | ~2021-07-19 | FL_ITS ---
EXAMINATION: MODIFIED BARIUM SWALLOW CLINICAL INFORMATION: Dysphagia. COMPARISON: None TECHNIQUE: Routine modified barium swallow was performed in lateral projection under fluoroscopy in presence of speech therapist. FINDINGS: Following oral administration of various consistencies of barium including thin, thick, semisolid, solid food coated with barium there is normal propagation of bolus from the oral cavity through the pharynx into esophagus without any obstruction, narrowing or stricture. No laryngeal penetration or aspiration seen. FLUOROSCOPY TIME: 1.6 minutes. DOSE AREA PRODUCT: 1.263 uGy-m2 (microgray-meter squared). FL/FL barium swallow modified IMPRESSION: Unremarkable modified barium swallow exam.
--- NOTE | 2021-07-20 11:43 | MHC.SL.IMP ---
Date of Plan of Treatment: 07/19/21 Onset of Symptoms/Illness: 02/18/19 Date Treatment Started: 07/19/21 Admitting Diagnosis: Right rotator cuff tear post-surgical repair Diffuse osteoarthritis Irritable bowel syndrome Diverticulitis Atypical chest pain Mild anemia Abscess in leg Diabetes Hypothyroidism Glaucoma Reflux Meningioma neuropathy Colon polyps Hyperlipidemia Hernia surgery Varicose vein surgery Hypertension Hip replacement Back surgery Hysterectomy UTI Fibromyalgia Carpal tunnel syndrome Chronic renal insufficiency Osteoporosis Polymyalgia rheumatica Primary Speech & Language Diagnosis: R13.12 Oropharyngeal Phase Dysphagia Reason for Today's Visit: 20110 Modified Barium Swallow Study Pre-evaluation Dietary Consistencies: Regular Pre-evaluation Liquid Consistency: Thin Pre-evaluation Medication Administration: Whole with Liquid Medical History: [place], [place] Modified Barium Swallow Study Fluoroscopic Evaluation of Swallowing Function CPT Code 29629 Evaluation Year: 2021 Reason for Study: Patient reports globus sensation and coughing when eating. Referring Physician: Otoniel Moya MD Evaluating Clinician: Cornelia Galvez MA, CCC-CLINICAL RESOURCE MANAGER Study Number: 1 Patient Name: Felicita Hanna Status: Outpatient, Ambulatory/Assisted Age: 86 Gender: Female MEDICAL HISTORY: Year of Onset or Diagnosis: 2019 Comorbidities: Right rotator cuff tear post-surgical repair Diffuse osteoarthritis Irritable bowel syndrome Diverticulitis Atypical chest pain Mild anemia Abscess in leg Diabetes Hypothyroidism Glaucoma Reflux Meningioma neuropathy Colon polyps Hyperlipidemia Hernia surgery Varicose vein surgery Hypertension Hip replacement Back surgery Hysterectomy UTI Fibromyalgia Carpal tunnel syndrome Chronic renal insufficiency Osteoporosis Polymyalgia rheumatica Current (pre-evaluation) Intake/Diet: Route: PO Diet Grade: Regular Liquid Consistencies: Thin Pre-Study Functional Oral Intake Scale (FOIS): 7- Total oral intake with no restrictions Pain: None reported at time of study SUBJECTIVE: Patient is an 86 year old female, accompanied to this exam by her daughter, who assisted in providing background information. Patient was referred for a modified barium swallow study by Otoniel Moya MD due to reports of dysphagia. Patient reports onset of dysphagia ?years ago.? Per patient, she intermittently coughs on saliva while sleeping, and on food and liquid. Additionally, patient reports globus sensation with solids. Patient?s daughter reports having to cut up patient?s food into small pieces, and opting for softer foods. [place] [facility] [place] She was recommended chopped solids and thin liquids. Oral Motor Exam Facial Symmetry: Symmetrical Mouth Occlusion: Normal Oral-Facial Teeth Characteristics: Intact/Normal Tongue Size: Normal Tongue Frenum Length: Is patient able to manage secretions?: Yes Food and Liquid Trials: Oral Impairment: Lip Closure: 0=No labial escape Oral Impairment: Tongue Control During Bolus Hold: 2=Posterior escape of less than half of bolus Oral Impairment: Bolus Preparation/Mastication: 1=Slow prolonged chewing/mashing with complete re-collection Oral Impairment: Bolus Transport/Lingual Motion: 3=Repetitive/disorganized tongue motion Oral Impairment: Oral Residue: 1=Trace residue lining oral structures Oral Impairment:Initiation of Pharyngeal Swallow: 3=Bolus head in pyriforms Pharyngeal Impairment: Soft Palate Elevation: 0=No bolus between soft palate (SP)/pharyngeal wall (PW) Pharyngeal Impairment: Laryngeal Elevation: 1=Partial thyroid cartilage/arytenoids to epiglottic petiole movement Pharyngeal Impairment: Anterior Hyoid Excursion: 1=Partial anterior movement Pharyngeal Impairment: Epiglottic Movement: 1=Partial inversion Pharyngeal Impairment: Laryngeal Vestibular Closure:: 0=Complete: no air/contrast in laryngeal vestibule Pharyngeal Impairment: Pharyngeal Stripping Wave: 1=Present: diminished Pharyngeal Impairment: Pharyngeal Contraction: Did not test Pharyngeal Impairment: Pharyngoesophageal Segment Openin=Complete distension and complete duration: no obstruction of flow Pharyngeal Impairment: Tongue Base (TB) Retraction: 2=Narrow column of contrast/air between TB and posterior PW Pharyngeal Impairment: Pharyngeal Residue: 2=Collection of residue within or on pharyngeal structures Pharyngeal Impairment: Esophageal Clearance Upright Position: Did not test Impressions and Recommendations Clinical Observations: OBJECTIVE: Time-out: performed at 3:30 Evaluation Start: 3:15; Stop: 3:20 Patient Positioning: Seated 70-90 degrees Viewing Planes: LATERAL ONLY Contrast: MBSImP? Standardized Protocol using commercially prepared, standardized Barium viscosities, including: Varibar? THIN LIQUID (40% w/v, <15 cps) , 1/2 Shortbread Cookie (1 x1 x.25 ) MBSImP ID: [id number] MBSImP Results: Lip closure for intraoral bolus containment resulted in no labial escape. Tongue control during bolus hold resulted in posterior escape of less than half of the bolus. Bolus preparation and mastication resulted in slow, prolonged chewing/mashing but with complete re-collection. Bolus transport/lingual motion was with repetitive/disorganized motion of the tongue. Oral residue was a trace, lining oral structures. Initiation of the pharyngeal swallow occurred when the bolus head was in the pyriform sinuses. Soft palate elevation resulted in no bolus between the soft palate and the pharyngeal wall. Laryngeal elevation was decreased, with partial superior movement of the thyroid cartilage/partial approximation of the arytenoids to the epiglottic petiole. Anterior hyoid excursion demonstrated partial anterior movement. Epiglottic movement resulted in partial inversion. Laryngeal vestibular closure was complete, as indicated by no air or contrast within the laryngeal vestibule at the height of the swallow. Pharyngeal stripping wave was present, but diminished. Pharyngeal contraction could not be determined due to logistical reasons not related to physiologic impairment. Pharyngoesophageal segment opening was completely distended for complete duration with no obstruction of bolus flow. Tongue base retraction allowed a narrow column of contrast or air between the retracted tongue base and the posterior pharyngeal wall. Pharyngeal residue was a collection of residue within or on pharyngeal structures. Esophageal clearance in the upright position could not be assessed due to logistical reasons not related to physiologic impairment. Oral Impairment Score: 9 Pharyngeal Impairment Score: 8 (absence of score, component 13) Esophageal Impairment Score: --- (absence of score, component 17) Laryngeal Penetration and Aspiration: Neither penetration nor aspiration was observed in today's study with Cookie, Thin. ASSESSMENT: Clinician Assessment: This exam was conducted by a multidisciplinary team, which included speech pathologist, radiologist, and radiology physician assistant. Patient was seated upright at 90 degrees for lateral view only. Patient trialed the following liquid and solid consistencies: 5 mL thin liquid barium, cup sip thin liquid barium, pureed solid (mixture applesauce with barium paste), ground solid (mixture chicken salad with barium paste), and regular solid (Radha Doone cookie coated with barium paste). Good labial seal with no interlabial escape of bolus. Consistently note escape of less than 50% of bolus posteriorly prior to initiation of pharyngeal swallow trigger. Bolus collected in valleculae, and did not result in aspiration or penetration. Mastication was mildly prolonged and characterized by piece meal deglutition. Patient chewed bolus, swallowed partial bolus, chewed remaining bolus, and swallowed again. Anterior-posterior lingual transport of bolus was slow and repetitive. Note trace oral residue on tongue. Pharyngeal swallow trigger was delayed and initiated as bolus head reached pyriform sinuses. No nasopharyngeal reflux. Partial laryngeal elevation with partial anterior hyoid excursion and partial epiglottic inversion. Nevertheless, laryngeal vestibular closure was complete. No evidence of aspiration or penetration. Note diminished pharyngeal stripping wave. Mild pharyngeal residue in valleculae, which cleared with subsequent dry swallow. No obstruction of flow through pharyngoesophageal segment opening. Liquid Intake Recommendation: Thin Liquid Intake Strategies: Small Sips Dietary Recommendations: Chopped/Advanced (NDD3) Medication Administration: Whole with Puree Please contact the pharmacy regarding appropriate crushable or liquid drug formulations that are available whenever modified delivery is recommended. Compensatory Strategies Recommended: Sitting Upright (90 deg) Double Swallow Small Bites and Sips Alternate Liquids/Solids Rate of Ingestion Change Avoid Specific Foods Supervision during eating and or drinking: Total Supervision (1:1) Recommendation for Speech Therapy: NA:Typical Evaluation Intake Recommendations: Route: PO Diet Grade: Regular Liquid Consistencies: Thin Post-Study Functional Oral Intake Scale (FOIS): 5- Total oral intake of multiple consistencies requiring special preparation Oral phase characterized by premature posterior escape of bolus, prolonged mastication, piecemeal deglutition, repetitive posterior tongue movements, and trace lingual residue. Pharyngeal phase characterized by delayed swallow trigger, partial laryngeal elevation, diminished pharyngeal stripping wave, mild residue in valleculae. Residue in oral and pharyngeal cavities was effectively cleared with dry swallow. For ease of mastication and to reduce fatigue, patient is recommended CHOPPED/ADVANCED (NDD3) solids and THIN liquids, pills WHOLE in LIQUID or PUREE. Patient and her daughter were educated on recommended diet textures and the following compensatory strategies: -cut food into small bite size pieces -moisten food with sauce/gravy -avoid tough, difficult to chew solids -alternate bite of food with sip of liquid -double swallow -take one sip at a time -upright 90 degree position when eating and drinking Therapy Recommendations: Therapy will be discontinued Prognosis for Improvement: The prognosis for the patient to meet nutritional needs by mouth is good based on degree of impairment. Clinician - Supplemental, Miscellaneous Communication: It is important to note MBSS objective studies are snapshots in time and Patient function might vary with factors such as time of day or concomitant medical conditions. For this reason, the final treatment plan for this patient should rest with their medical care team. Additional recommendations should be considered with the totality of the Patient in mind. Thank for the opportunity to participate in the care of this patient. If you have any questions about the content of this report, please contact the [facility] at [facility]. Education: Education regarding findings from today's study and plans for therapy were provided to Patient and family/caregiver through Verbal Instruction. Understanding was expressed by the Patient and family/caregiver. Welder Pipe Making Clinician/Clinical Fellow: No Supervisory Statement: N/A Speech Language Pathologist: Cornelia Galvez M.A., CCC-CLINICAL RESOURCE MANAGER
== END 2021-07-19 15:16 | disposition home or self-care (01) ==
LOC: HO.XRAY 15:15
PROVIDERS: Visit Provider Internal Medicine
DX: R13.12 Dysphagia, oropharyngeal phase (principal); M25.512 Pain in left shoulder
CPT/HCPCS: 73030; 74230; 92611

== ENCOUNTER → 2021-07-24 11:20 | Outpatient (BNVA) | payer MEDICARE, SELFPAY | PROVIDERS: PCP Family Medicine; Visit Provider Internal Medicine | DX: M54.16 Radiculopathy, lumbar region (principal); M19.019 Primary osteoarthritis, unspecified shoulder | CPT/HCPCS: 99212 ==

== ENCOUNTER 2021-08-28 14:35 | Outpatient (REF) | payer OTHER, SELFPAY ==
[2021-08-28 14:52] LABS: MANUAL DIFF FLAG NO
[2021-08-28 15:24] LABS: Basophils Percent Auto 0.3 % (0-2); Eosinophils Absolute Auto 0.2 X10*3/uL (0.0-0.4); Eosinophils Percent Auto 2.9 % (0-4); Hematocrit 36.3 % (37.0-47.0); Hemoglobin 11.3 g/dl (12.0-16.0); Imm Gran Abs Auto 0.02 X10*3/uL (0.00-0.03); Imm Gran Pct Auto 0.3 % (0.0-0.4); Lymphocytes Absolute Auto 1.6 X10*3/uL (1.2-4.9); Lymphocytes Percent Auto 27.4 % (20-40); Mean Corpuscular HGB Conc 31.1 g/dl (31.0-35.0); Mean Corpuscular Hemoglobin 29.4 pg (27.0-33.0); Mean Corpuscular Volume 94.3 fL (80.0-98.0); Mean Platelet Volume 10.3 fL (9.4-12.3); Monocytes Absolute Auto 0.7 X10*3/uL (0.1-1.2); Monocytes Percent Auto 12.4 % (2-11); Neutrophils Absolute Auto 3.4 x10*3/uL (2.0-8.3); Neutrophils Percent Auto 56.7 % (45-73); Platelet Count 274 X10*3/uL (160-400); Red Blood Count 3.85 X10*6/uL (4.20-5.50); Red Cell Distribution Width 13.2 % (11.0-16.0)
[2021-08-28 15:32] LABS: Anion Gap 14 (12-20); Blood Urea Nitrogen 32 mg/dL (9-16); Calcium 9.4 mg/dL (8.4-10.2); Carbon Dioxide 22 mmol/L (22-29); Chloride 107 mmol/L (96-108); Estimated Glomerular Filt Rate 40; Magnesium 1.8 mg/dL (1.6-2.6); Potassium 4.8 mmol/L (3.3-5.1); Sodium 138 mmol/L (135-145)
[2021-08-28 15:38] LABS: Appearance Urine HAZY; Color Urine YELLOW; Glucose Urine UA NEG (NEG); Leukocyte Esterase Urine 2+ (NEG); Nitrite Urine NEG (NEG); PH 5.5 (5.0-8.0); Specific Gravity - Urine 1.025 (1.005-1.025); Urine Blood NEG (NEG); Urine Ketones NEG (NEG); Urine Protein 2+ MG/DL (NEG-TRACE)
[2021-08-28 15:54] LABS: Vitamin D 25-OH Total 30.6 ng/mL (>30)
[2021-08-28 15:56] LABS: Bacteria Urine 3+ /LPF; Mucus Urine 2+ /LPF; RBC Urine 0-2 /HPF (0); Squamous Epithelial Cell Urine 3+ /LPF; WBC Clumps Urine NOTED
[2021-08-28 16:24] LABS: Creatinine Urine 123.73 mg/dL; Protein/Creatinine Ratio, Ur 0.73 (<0.2); Total Protein Urine Random 90 mg/dL (<12)
[2021-08-28 16:43] LABS: Microalbum/Creatinine Ratio Ur 466.3 ug/mg cr
[2021-08-29 12:37] LABS: Calcium (PTHI) 9.4 mg/dL (8.6-10.4); PTHI 75 pg/mL (16-77)
== END 2021-08-28 14:36 | disposition home or self-care (01) ==
LOC: HO.LAB 14:35
PROVIDERS: PCP Family Medicine; Visit Provider Internal Medicine Nephrology
DX: N18.31 Chronic kidney disease, stage 3a (principal); E11.22 Type 2 diabetes mellitus with diabetic chronic kidney disease; N25.0 Renal osteodystrophy
CPT/HCPCS: 36415; 80051; 81001; 82040; 82043; 82306; 82310; 82565; 83735; 83970; 84100; 84156; 84520; 85025; 87086; 87088; 87147; 87186

== ENCOUNTER 2021-09-01 15:55 | Outpatient (REF) | payer OTHER, SELFPAY ==
--- NOTE | ~2021-09-01 | US_ITS ---
EXAMINATION: US VENOUS ULTRASOUND WITH DOPPLER LOWER EXTREMITY, RIGHT CLINICAL INFORMATION: Swelling COMPARISON: None TECHNIQUE: Ultrasound of the deep veins is performed from the hip to the calf with compression sonography and color and pulse Doppler assessment. Spectral analysis with color-flow imaging is performed. FINDINGS: There is normal venous compression and respiratory variation and augmented flow. The visualized common femoral vein, superficial femoral vein, profunda femoral vein, popliteal vein, and the trifurcation region shows no evidence of deep venous thrombosis. There is no significant popliteal fossa cyst. US/US venous duplex LE RT IMPRESSION: No DVT demonstrated in the right lower extremity.
== END 2021-09-01 15:56 | disposition home or self-care (01) ==
LOC: HO.US 15:55
PROVIDERS: Visit Provider Internal Medicine Nephrology
DX: N18.31 Chronic kidney disease, stage 3a (principal); N25.0 Renal osteodystrophy; E11.22 Type 2 diabetes mellitus with diabetic chronic kidney disease; R60.9 Edema, unspecified
CPT/HCPCS: 93971

== ENCOUNTER 2021-10-11 14:54 | Outpatient (REF) | payer OTHER, SELFPAY ==
[2021-10-11 16:00] LABS: Alanine Aminotransferase 11 U/L (0-31); Albumin Level 3.9 g/dL (3.5-5.0); Alkaline Phosphatase 67 U/L (39-117); Anion Gap 13 (12-20); Aspartate Amino Transferase 14 U/L (5-31); Bilirubin Total 0.2 mg/dL (0.0-1.0); Blood Urea Nitrogen 32 mg/dL (9-16); C Reactive Protein 0.61 mg/dL (< or = 0.50); Calcium 9.1 mg/dL (8.4-10.2); Carbon Dioxide 22 mmol/L (22-29); Chloride 110 mmol/L (96-108); Estimated Glomerular Filt Rate 40; Glucose Random 109 mg/dL (60-115); Sodium 140 mmol/L (135-145); Total Protein 6.5 g/dL (6.5-8.0)
[2021-10-11 16:05] LABS: Erythrocyte Sedimentation Rate 36 MM/HR (0-20)
[2021-10-11 16:23] LABS: Vitamin D 25-OH Total 29.5 ng/mL (>30)
== END 2021-10-11 14:55 | disposition home or self-care (01) ==
LOC: HO.LAB 14:54
PROVIDERS: PCP Family Medicine; Visit Provider Nurse Practitioner Family
DX: M35.3 Polymyalgia rheumatica (principal); M81.0 Age-related osteoporosis without current pathological fracture
CPT/HCPCS: 36415; 80053; 82306; 85652; 86140

== ENCOUNTER → 2021-10-17 13:30 | Outpatient (BNVA) | payer OTHER, SELFPAY | PROVIDERS: PCP Family Medicine; Visit Provider Nurse Practitioner Family | DX: M81.0 Age-related osteoporosis without current pathological fracture (principal); M35.3 Polymyalgia rheumatica; M89.49 Other hypertrophic osteoarthropathy, multiple sites | CPT/HCPCS: 96372; 99212; J0897 ==

== ENCOUNTER 2021-11-15 15:49 | Outpatient (REF) | payer OTHER, SELFPAY ==
[2021-11-15 17:04] LABS: Alanine Aminotransferase 11 U/L (0-31); Albumin Level 4.2 g/dL (3.5-5.0); Alkaline Phosphatase 70 U/L (39-117); Anion Gap 13 (12-20); Aspartate Amino Transferase 14 U/L (5-31); Bilirubin Total < 0.2 mg/dL (0.0-1.0); Blood Urea Nitrogen 29 mg/dL (9-16); C Reactive Protein 0.48 mg/dL (< or = 0.50); Calcium 8.8 mg/dL (8.4-10.2); Carbon Dioxide 21 mmol/L (22-29); Chloride 112 mmol/L (96-108); Estimated Glomerular Filt Rate 47; Glucose Random 90 mg/dL (60-115); Sodium 141 mmol/L (135-145)
[2021-11-15 17:34] LABS: Erythrocyte Sedimentation Rate 44 MM/HR (0-20)
== END 2021-11-15 15:50 | disposition home or self-care (01) ==
LOC: HO.LAB 15:49
PROVIDERS: PCP Family Medicine; Visit Provider Nurse Practitioner Family
DX: M81.0 Age-related osteoporosis without current pathological fracture (principal); M35.3 Polymyalgia rheumatica
CPT/HCPCS: 36415; 80053; 82306; 85652; 86140

== ENCOUNTER 2021-12-26 14:16 | Outpatient (REF) | payer OTHER, SELFPAY ==
[2021-12-26 14:33] LABS: MANUAL DIFF FLAG NO
[2021-12-26 14:45] LABS: Basophils Percent Auto 0.5 % (0-2); Eosinophils Absolute Auto 0.2 X10*3/uL (0.0-0.4); Eosinophils Percent Auto 2.9 % (0-4); Hematocrit 36.8 % (37.0-47.0); Hemoglobin 11.7 g/dl (12.0-16.0); Imm Gran Abs Auto 0.02 X10*3/uL (0.00-0.03); Imm Gran Pct Auto 0.3 % (0.0-0.4); Lymphocytes Absolute Auto 1.8 X10*3/uL (1.2-4.9); Mean Corpuscular HGB Conc 31.8 g/dl (31.0-35.0); Mean Corpuscular Hemoglobin 29.8 pg (27.0-33.0); Mean Corpuscular Volume 93.9 fL (80.0-98.0); Mean Platelet Volume 10.3 fL (9.4-12.3); Monocytes Absolute Auto 0.7 X10*3/uL (0.1-1.2); Monocytes Percent Auto 11.4 % (2-11); Neutrophils Absolute Auto 3.3 x10*3/uL (2.0-8.3); Neutrophils Percent Auto 54.9 % (45-73); Platelet Count 251 X10*3/uL (160-400); Red Blood Count 3.92 X10*6/uL (4.20-5.50); Red Cell Distribution Width 12.9 % (11.0-16.0)
[2021-12-26 15:13] LABS: Alanine Aminotransferase 12 U/L (0-31); Albumin Level 4.1 g/dL (3.5-5.0); Alkaline Phosphatase 62 U/L (39-117); Anion Gap 15 (12-20); Aspartate Amino Transferase 15 U/L (5-31); Bilirubin Total < 0.2 mg/dL (0.0-1.0); Blood Urea Nitrogen 28 mg/dL (9-16); Calcium 9.8 mg/dL (8.4-10.2); Carbon Dioxide 26 mmol/L (22-29); Chloride 106 mmol/L (96-108); Estimated Glomerular Filt Rate 39; Glucose Random 87 mg/dL (60-115); Potassium 5.3 mmol/L (3.3-5.1); Sodium 142 mmol/L (135-145)
[2021-12-26 16:11] LABS: Free T4 (Free Thyroxine) 0.95 ng/dL (0.71-1.85)
== END 2021-12-26 14:17 | disposition home or self-care (01) ==
LOC: HO.LAB 14:16
PROVIDERS: PCP Family Medicine; Visit Provider Family Medicine
DX: E03.9 Hypothyroidism, unspecified (principal); E11.9 Type 2 diabetes mellitus without complications; E78.5 Hyperlipidemia, unspecified; N39.0 Urinary tract infection, site not specified
CPT/HCPCS: 36415; 80053; 84439; 84443; 85025; 87086; 87088; 87186

== ENCOUNTER → 2021-12-28 15:02 | Outpatient (BNVA) | payer OTHER, SELFPAY | PROVIDERS: PCP Family Medicine; Visit Provider Surgery | DX: K64.8 Other hemorrhoids (principal); K64.4 Residual hemorrhoidal skin tags | CPT/HCPCS: 46600; 99202 ==

== ENCOUNTER 2022-02-14 15:35 | Outpatient (REF) | payer OTHER, SELFPAY ==
--- NOTE | ~2022-02-14 | US_ITS ---
EXAMINATION: US THYROID CLINICAL INFORMATION: Hypothyroidism COMPARISON: None TECHNIQUE: Linear transducer grayscale and color Doppler examination with attention to the region of the thyroid. FINDINGS: SIZE: Measurements of the thyroid lobes and nodules are given in sagittal, anteroposterior and transverse dimensions respectively. Right Thyroid Lobe: 3.0 x 1.4 x 1.1 cm, volume 2.4 mL. Parenchyma: The gland echotexture is heterogeneous. Thyroid vascularity is increased. Left Thyroid Lobe: 2.9 x 1.0 x 1.3 cm, volume 2.0 mL. Parenchyma: The gland echotexture is heterogeneous. Thyroid vascularity is increased. Isthmus: 0.4 cm in maximum AP dimension. No focal thyroid nodule is seen. NODES: No lymphadenopathy is seen in the tissue surrounding the thyroid gland. US/US thyroid IMPRESSION: Small heterogeneous hypervascular thyroid gland. Appearance is suggestive of thyroiditis. No nodule or lymphadenopathy is seen.
== END 2022-02-14 15:36 | disposition home or self-care (01) ==
LOC: HO.US 15:35
PROVIDERS: Visit Provider Family Medicine
DX: E03.9 Hypothyroidism, unspecified (principal); R13.10 Dysphagia, unspecified
CPT/HCPCS: 76536

== ENCOUNTER 2022-02-21 14:28 | Outpatient (REF) | payer OTHER, SELFPAY ==
[2022-02-21 15:45] LABS: Cholesterol 112 mg/dL; HDL Cholesterol 34 mg/dL; LDL Cholesterol Calculated 47 mg/dl; Triglycerides 155 mg/dL
[2022-02-21 16:07] LABS: TSH reflex Free T4 2.62 uIU/mL (0.32-4.0)
== END 2022-02-21 14:29 | disposition home or self-care (01) ==
LOC: HO.XRAY 14:28
PROVIDERS: PCP Family Medicine; Visit Provider Family Medicine
DX: E03.9 Hypothyroidism, unspecified (principal)
CPT/HCPCS: 36415; 80061; 84443

== ENCOUNTER 2022-02-23 14:57 | Outpatient (REF) | payer OTHER, SELFPAY ==
[2022-02-23 16:11] LABS: Creatinine Urine 84.87 mg/dL
[2022-02-23 16:26] LABS: Microalbum/Creatinine Ratio Ur 858.9 ug/mg cr
== END 2022-02-23 14:58 | disposition home or self-care (01) ==
LOC: HO.LNP 14:57
PROVIDERS: Visit Provider Family Medicine
DX: E03.9 Hypothyroidism, unspecified (principal)
CPT/HCPCS: 82043

== ENCOUNTER 2022-04-12 16:15 | Outpatient (REF) | payer OTHER, SELFPAY ==
[2022-04-12 18:06] LABS: Anion Gap 13 (12-20); Blood Urea Nitrogen 28 mg/dL (9-16); Carbon Dioxide 24 mmol/L (22-29); Chloride 109 mmol/L (96-108); Estimated Glomerular Filt Rate 34; Magnesium 1.8 mg/dL (1.6-2.6); Phosphorus 4.3 mg/dL (2.7-4.5); Potassium 4.8 mmol/L (3.3-5.1); Sodium 141 mmol/L (135-145); Vitamin D 25-OH Total 33.7 ng/mL (>30)
[2022-04-12 18:08] LABS: Calcium 9.1 mg/dL (8.4-10.2)
[2022-04-16 11:54] LABS: Calcium (PTHI) 9.2 mg/dL (8.6-10.4); PTHI 106 pg/mL (16-77)
== END 2022-04-12 16:16 | disposition home or self-care (01) ==
LOC: HO.LAB 16:15
PROVIDERS: Absent Provider Internal Medicine Nephrology; PCP Family Medicine; Visit Provider Psychiatry & Neurology Neurology
DX: G44.229 Chronic tension-type headache, not intractable (principal); N18.32 Chronic kidney disease, stage 3b; N25.0 Renal osteodystrophy; E11.22 Type 2 diabetes mellitus with diabetic chronic kidney disease; R06.9 Unspecified abnormalities of breathing
CPT/HCPCS: 36415; 80051; 82306; 82310; 82565; 83735; 83970; 84100; 84520

== ENCOUNTER 2022-04-13 17:35 | Outpatient (REF) | payer OTHER, SELFPAY ==
[2022-04-13 18:11] LABS: Appearance Urine Clear; Color Urine Yellow; Glucose Urine UA Negative (Negative); Leukocyte Esterase Urine Moderate (2+) (Negative); Nitrite Urine Negative (Negative); UMIC TRIGGER UA YES; Urine Blood Negative (Negative); Urine Ketones Negative (Negative); Urine Protein 100 (2+) mg/dL (Neg-Trace)
[2022-04-13 18:17] LABS: Bacteria Urine 4+ (None Seen); Hyaline Casts Urine 0-2 /LPF (0-2); Microalbum/Creatinine Ratio Ur 463.6 ug/mg cr; Protein/Creatinine Ratio, Ur 0.67 (<0.2); RBC Urine 0-2 /HPF (0-2); Squamous Epithelial Cell Urine 0-2 /HPF (0-2); Total Protein Urine Random 60 mg/dL (<12); WBC Urine 21-50 /HPF (0-5)
== END 2022-04-13 17:36 | disposition home or self-care (01) ==
LOC: HO.LNP 17:35
PROVIDERS: Visit Provider Internal Medicine Nephrology
DX: E11.22 Type 2 diabetes mellitus with diabetic chronic kidney disease (principal); N18.32 Chronic kidney disease, stage 3b; N25.0 Renal osteodystrophy; R60.9 Edema, unspecified
CPT/HCPCS: 81001; 82043; 84156; 87086; 87088; 87186

== ENCOUNTER 2022-04-17 08:30 | Outpatient (REF) | payer OTHER, SELFPAY ==
[2022-04-17] MEDS: iohexoL 350 MG/ML 100 ML INFUS..BTL IV (09:37)
[2022-04-18 07:15] LABS: Creatinine POC 0.7 mg/dL (0.5-1.4); GFR POC 60
== END 2022-04-17 08:31 | disposition home or self-care (01) ==
LOC: HO.CT 08:30
PROVIDERS: PCP Family Medicine; Visit Provider Psychiatry & Neurology Neurology
DX: G44.229 Chronic tension-type headache, not intractable (principal)
CPT/HCPCS: 70470; 82565; Q9967

== ENCOUNTER 2022-04-17 11:00 | Outpatient (REF) | payer OTHER, SELFPAY ==
[2022-04-17 13:46] LABS: Alanine Aminotransferase 13 U/L (0-31); Alkaline Phosphatase 62 U/L (39-117); Anion Gap 13 (12-20); Aspartate Amino Transferase 15 U/L (5-31); Bilirubin Total 0.3 mg/dL (0.0-1.0); Blood Urea Nitrogen 27 mg/dL (9-16); Calcium 9.3 mg/dL (8.4-10.2); Carbon Dioxide 25 mmol/L (22-29); Chloride 106 mmol/L (96-108); Estimated Glomerular Filt Rate 40; Glucose Random 243 mg/dL (60-115); Phosphorus 3.7 mg/dL (2.7-4.5); Potassium 5.3 mmol/L (3.3-5.1); Sodium 139 mmol/L (135-145); Total Protein 6.6 g/dL (6.5-8.0)
== END 2022-04-17 11:01 | disposition home or self-care (01) ==
LOC: HO.LAB 11:00
PROVIDERS: PCP Family Medicine; Visit Provider Nurse Practitioner Family
DX: M81.0 Age-related osteoporosis without current pathological fracture (principal)
CPT/HCPCS: 36415; 80053; 84100

== ENCOUNTER 2022-04-24 14:54 | Outpatient (REF) | payer OTHER, SELFPAY ==
--- NOTE | ~2022-04-24 | MM_ITS ---
EXAMINATION: MM SCREENING DIGITAL BREAST TOMOSYNTHESIS, BILATERAL CLINICAL INFORMATION: Screening. Asymptomatic. COMPARISON: Mammography: March 01, 2021 and studies dating back to February 08, 2016 TECHNIQUE: Digital breast tomosynthesis is performed in both the craniocaudal and mediolateral oblique views along with computer-aided detection (CAD). Synthesized 2D images are generated from the tomosynthesis. FINDINGS: There are scattered areas of fibroglandular density (ACR BI-RADS breast composition Category b). There are no significant masses, abnormal calcifications, or other abnormalities. MM/MM tomosynthesis screening BI IMPRESSION: No significant changes from prior exam. ASSESSMENT: BI-RADS 1: Negative RECOMMENDATION: Routine annual mammography screening. This patient's information was entered into a reminder system with a target due date for their next mammogram.
== END 2022-04-24 14:55 | disposition home or self-care (01) ==
LOC: HO.MAMMO 14:54
PROVIDERS: PCP Family Medicine; Visit Provider Family Medicine
DX: Z12.31 Encounter for screening mammogram for malignant neoplasm of breast (principal)
CPT/HCPCS: 77063; 77067

== ENCOUNTER 2022-05-28 15:34 | Outpatient (REF) | payer OTHER, SELFPAY ==
[2022-05-28 17:24] LABS: Blood Urea Nitrogen 37 mg/dL (9-16); Estimated Glomerular Filt Rate 34; Potassium 5.2 mmol/L (3.3-5.1)
== END 2022-05-28 15:35 | disposition home or self-care (01) ==
LOC: HO.LAB 15:34
PROVIDERS: PCP Family Medicine; Visit Provider Nurse Practitioner Family
DX: E87.5 Hyperkalemia (principal); M81.0 Age-related osteoporosis without current pathological fracture
CPT/HCPCS: 36415; 82565; 84132; 84520

== ENCOUNTER → 2022-05-31 13:30 | Outpatient (BNVA) | payer OTHER, SELFPAY | PROVIDERS: PCP Family Medicine; Visit Provider Nurse Practitioner Family | DX: M81.0 Age-related osteoporosis without current pathological fracture (principal); M89.49 Other hypertrophic osteoarthropathy, multiple sites; M35.3 Polymyalgia rheumatica | CPT/HCPCS: 96372; 99212 ==

== ENCOUNTER 2022-06-14 09:51 | Outpatient (REF) | payer OTHER, SELFPAY ==
--- NOTE | ~2022-06-14 | MM_ITS ---
EXAMINATION: BONE DENSITOMETRY CLINICAL INDICATION: Osteoporosis. COMPARISON: Previous BD dated 01/05/2020 and baseline BD dated 06/23/2007. TECHNIQUE: Using a [employer] DXA System (software version: 13.1) manufactured by [employer], dual-energy x-ray absorptiometry was performed of the lumbar spine and left hip. The images are of good technical quality. Summary results are attached. FINDINGS: AP SPINE L1-L3 (excluding L4): The data of L1-L4 has been changed to exclude the L4 vertebral body, because hardware at this level may cause overestimation of lumbar spine density. Current: BMD 1.202 g/cm2, Z-score 1.8, T-score 0.3, normal, 7.7% increase from previous, 5.0% increase from baseline (<5% change is not significant). Prior: BMD 1.116 g/cm2. Baseline: BMD 1.145 g/cm2. LEFT FEMUR, NECK: Current: BMD 0.828 g/cm2, Z-score 0.7, T-score -1.5, osteopenia. Prior: BMD 0.876 g/cm2. Baseline: BMD 1.024 g/cm2. LEFT FEMUR, TOTAL: Current: BMD 0.952 g/cm2, Z-score 1.6, T-score -0.4, normal, 8.0% decrease from previous, 11.8% decrease from baseline (<5% change is not significant). Prior: BMD 1.035 g/cm2. Baseline: BMD 1.079 g/cm2. IDENTIFIED RISK FACTORS: Early menopause, family history (parent hip fracture), glucocorticoids (chronic), history of fracture (adult), hyperthyroid, hysterectomy, low calcium intake, osteoporosis, recurrent falls, renal, secondary osteoporosis. HISTORY OF FRACTURE: Shoulder, hip. MEDICATIONS: Calcium, vitamin D. MM/XR DEXA axial skeleton IMPRESSION: 1. DIAGNOSIS: Osteopenia based on the lowest T-score value of -1.5 in the femoral neck applying World Health Organization criteria. 2. 10-YEAR FRACTURE RISK PREDICTION, FRAX: Major osteoporotic fracture (clinical spine, forearm, hip or shoulder) 28.3%. Hip fracture 17.7%. 3. Treatment Recommendations: NOF guidelines recommend consideration for treatment in postmenopausal women and men age 50 and older presenting with the following: -A hip or vertebral (clinical or morphometric) fracture. -T-score less than or equal to -2.5 at the femoral neck or spine after appropriate evaluation to exclude secondary causes. -Low bone mass at the hip or spine and a 10-year fracture probability by FRAX of greater than or equal to 3% for hip fracture or greater than or equal to 20% for major osteoporotic fracture based on the [place] adapted WHO algorithm. 4. Other Recommendations: All treatment decisions require clinical judgment and consideration of individual patient factors, including patient preferences, comorbidities, previous drug use, risk factors not captured in the FRAX model (e.g. frailty, falls, vitamin D deficiency, increased bone turnover, interval significant decline in bone density) and possible under or overestimation of fracture risk by FRAX. Additional medical evaluation for secondary cause of low bone mineral density may be appropriate. FUTURE SCAN RECOMMENDATION: People with diagnosed cases of osteoporosis or at high risk for fracture should have regular bone mineral density tests. For patients eligible for Medicare, routine testing is allowed once every 2 years. The testing frequency can be increased to one year for patients who have rapidly progressing disease, those who are receiving or discontinuing medical therapy to restore bone mass, or have additional risk factors.
== END 2022-06-14 09:52 | disposition home or self-care (01) ==
LOC: HO.MAMMO 09:51
PROVIDERS: PCP Nurse Practitioner Family; Visit Provider Nurse Practitioner Family
DX: Z13.820 Encounter for screening for osteoporosis (principal); M81.0 Age-related osteoporosis without current pathological fracture; Z78.0 Asymptomatic menopausal state
CPT/HCPCS: 77080

== ENCOUNTER → 2022-07-30 10:37 | Outpatient (REF) | payer OTHER, SELFPAY ==
--- NOTE | 2022-07-30 10:39 | HM_ITS ---
* Total monitoring time approximately 1 day. * Underlying rhythm is sinus. Average ventricular rate 96/Min. Range 76 to 129/Min. * Frequent supraventricular ectopy. [place] of 1.7%. * Very rare ventricular ectopy. Minimal burden. * No sustained arrhythmias. * No significant pauses or AV blocks. * No patient markers and no diary events. MTDD
== END ==
LOC: HO.CARD 10:37
PROVIDERS: PCP Family Medicine; Visit Provider Family Medicine
DX: R00.0 Tachycardia, unspecified (principal)
CPT/HCPCS: 93225

== ENCOUNTER 2022-08-01 13:00 | Outpatient (RCR) | payer OTHER, SELFPAY | END 2022-08-15 09:20 | disposition home or self-care (01) | LOC: HO.PT 13:00 | PROVIDERS: PCP Family Medicine; Visit Provider Family Medicine | DX: M54.50 Low back pain, unspecified (principal); M54.12 Radiculopathy, cervical region; M50.30 Other cervical disc degeneration, unspecified cervical region; M15.8 Other polyosteoarthritis; M51.37 Other intervertebral disc degeneration, lumbosacral region; M46.1 Sacroiliitis, not elsewhere classified | CPT/HCPCS: 97110; 97140; 97162 ==

== ENCOUNTER → 2022-10-03 14:54 | Outpatient (BNVA) | payer OTHER, SELFPAY | PROVIDERS: PCP Family Medicine; Referring Provider Family Medicine; Visit Provider Internal Medicine | DX: R06.02 Shortness of breath (principal); I49.8 Other specified cardiac arrhythmias | CPT/HCPCS: 93005; 99202 ==

== ENCOUNTER → 2022-10-23 09:26 | Outpatient (BNVA) | payer OTHER, SELFPAY | PROVIDERS: PCP Family Medicine; Visit Provider Internal Medicine Endocrinology, Diabetes & Metabolism | DX: E03.9 Hypothyroidism, unspecified (principal) | CPT/HCPCS: 99202 ==

== ENCOUNTER 2022-10-23 10:09 | Outpatient (REF) | payer OTHER, SELFPAY ==
[2022-10-23 14:20] LABS: Free T4 (Free Thyroxine) 1.03 ng/dL (0.71-1.85); Thyroid Stimulating Hormone 4.53 uIU/mL (0.32-4.0)
[2022-10-25 10:48] LABS: Thyroid Peroxidase Antibodies 231 IU/mL (<9)
== END 2022-10-23 10:10 | disposition home or self-care (01) ==
LOC: HO.10HDL 10:09
PROVIDERS: Visit Provider Internal Medicine Endocrinology, Diabetes & Metabolism
DX: E03.9 Hypothyroidism, unspecified (principal)
CPT/HCPCS: 36415; 84439; 84443; 86376

== ENCOUNTER → 2022-10-25 12:54 | Outpatient (REF) | payer OTHER, SELFPAY ==
--- NOTE | ~2022-10-25 | XR_ITS ---
EXAMINATION: XR CHEST 2 VIEWS CLINICAL INFORMATION: Shortness of breath. COMPARISON: Chest radiographs dated 12/16/2016. TECHNIQUE: Frontal and lateral views of the chest were obtained. FINDINGS: The heart, great vessels, pulmonary vasculature and mediastinum are normal. Lung volumes are somewhat diminished. The lungs show no focal infiltrate, effusion or pneumothorax. There is no acute osseous abnormality. There is multi-level thoracic spondylosis. Orthopedic anchors are applied to the right humeral head. XR/XR chest 2V IMPRESSION: No active cardiopulmonary disease. Lung volumes are somewhat diminished.
--- NOTE | 2022-10-25 12:59 | CA_ITS ---
Transthoracic Echocardiogram Patient (Last, First, Middle): Felicita Hanna, Gender: Female Date of : 1935 Age: 87 Procedure Date: 10/25/2022 Procedure Type: Transthoracic Echocardiogram Location: OP Height: 157. cm Weight: 82.1 kg BSA: 1.83 m2 Heart Rate: 79 bpm BP: 105 / 60 mmHg Customer Service Supervisor: JARET Dumas MD: Tereso Sheldon MD Travel Rn Or: Arsen Melgar MD Symptoms: R06.02 - Shortness of breath Study Quality: Fair ECG Rhythm: Sinus Conclusions: - 1. Normal LV ejection fraction with LVEF of 60 65% with impaired relaxation filling pattern suggestion of elevated filling pressures 2. Mild mitral regurgitation 3. Normal measured RV systolic pressure 4. No gross pericardial effusion Findings Left Ventricle Normal left ventricular size, thickness, and systolic function. The visually estimated ejection fraction is between 60-65%. Spectral Doppler is indicative of an impaired relaxation filling pattern. Elevated filling pressures. E/E prime ratio is >15, consistent with elevated filling pressures. There is mild septal asymmetric hypertrophy. Right Ventricle Normal right ventricular cavity size. There is low normal right ventricular systolic function. Atria The left atrium is normal in size. Interatrial shunt cannot be excluded. The right atrium is normal in size. Aortic Valve The aortic valve was not well visualized. There is no aortic valve stenosis. There is no aortic valve regurgitation. Mitral Valve There is mild anterior mitral leaflet thickening. There is mild mitral valve regurgitation. There is no mitral valve stenosis. Pulmonic Valve The pulmonic valve was not well visualized. Tricuspid Valve Likely normal tricuspid valve structure and function. There is trace tricuspid valve regurgitation. The right ventricular systolic pressure is normal. The right ventricular systolic pressure is 20 mmHg. Normal right atrial pressure. There is no evidence of pulmonary hypertension. Great Vessels All visible segments of the aorta are normal in size. The pulmonary artery was not well visualized. Venous The inferior vena cava is normal in size and collapses greater than 50% with inspiration. Pericardium/Pleural There is no evidence of pericardial effusion. Prior Study Comparison No prior study available for comparison. Measurements 2D Linear Measurements IVSd: 1.27 0.6-0.9/0.6-1.0 cm LVIDd: 3.77 3.9-5.3/4.2-5.9 cm LVIDd Index: 2.06 2.4-3.2/2.2-3.1 cm/m2 LVIDs: 2.72 2.0-3.6 cm LVPWd: 0.87 0.7-1.1 cm LA Diam: 3.00 2.7-3.8/3.0-4.0 cm LAIDs Index: 1.64 1.5-2.3 cm/m2 LV Mass: 158.52 67-162/88-224 g LV Mass Index: 86.62 43-95/49-115 g/m2 LVOT Diam: 1.80 3.0+(-)1.3 cm 2D Systolic Function EF 4C: 55.50 >55% EF 2C: 64.10 >55% EF BiP: 60.20 >55% Mitral Valve MV Pk E: 0.79 MV PK A: 1.15 MV Decel Time: 253.00 E/A: 0.70 E'Lateral: 5.11 E'Medial: 4.57 E/E' Med: 17.30 E/E' Lat: 15.50 PHT: 74.00 MVA PHT: 2.97 Decel [place]: 3.12 Aortic Valve AoV Pk Ven[place]ata: 1.27 AoV Mn Ven[place]: 0.89 AoV VTI: 0.25 AoV Pk Grad: 6.00 Aov Mn Grad: 4.00 TIERRA Cont.VTI: 2.01 LVOT LVOT Pk [place]: 1.00 LVOT Mn [place]: 0.74 LVOT VTI: 0.20 LVOT Pk Grad: 4.00 LVOT Mn Grad: 2.00 LVOT Diam: 1.80 LVOT Area: 2.54 Diastolic Function MV Pk E: 0.79 MV Pk A: 1.15 E/A: 0.70 E'Medial: 4.57 E/E' Med: 17.30 E' Laterial: 5.11 E/E' Lat: 15.50 Right Ventricle TAPSE (mm): 15.20 TVS' Ven[place]ata: 11.10 Tricuspid Valve TR Pk Ven[place]: 2.04 TR Pk Grad: 17.00 RA Press: 3.00 RVSP: 20.00 Great Vessels Aorta Sinus of Valsalva: 3.40 2.0-3.5 cm Ao Asc: 3.40 2.1-3.4 cm Pulmonary Valve PV Pk Ven[place]ata: 0.81 Peak PV Grad: 3.00 Updated in Other Vendor System with Status of Final Arsen Melgar MD electronically signed on 10/25/2022 5:28:46 PM with status of Final
== END ==
LOC: HO.CARD 12:54
PROVIDERS: PCP Family Medicine; Visit Provider Internal Medicine
DX: R06.02 Shortness of breath (principal)
CPT/HCPCS: 71046; 93306

== ENCOUNTER 2022-12-11 14:11 | Outpatient (REF) | payer OTHER, SELFPAY ==
[2022-12-11 15:43] LABS: Cholesterol 93 mg/dL; HDL Cholesterol 29 mg/dL; LDL Cholesterol Calculated 27 mg/dl; Triglycerides 188 mg/dL
[2022-12-11 15:48] LABS: Alanine Aminotransferase 11 U/L (0-31); Albumin Level 3.9 g/dL (3.5-5.0); Alkaline Phosphatase 54 U/L (39-117); Anion Gap 12 (12-20); Aspartate Amino Transferase 15 U/L (5-31); Bilirubin Total 0.2 mg/dL (0.0-1.0); Blood Urea Nitrogen 31 mg/dL (9-16); Calcium 9.4 mg/dL (8.4-10.2); Carbon Dioxide 24 mmol/L (22-29); Chloride 111 mmol/L (96-108); Estimated Glomerular Filt Rate 34; Glucose Random 108 mg/dL (60-115); Iron 71 mcg/dL (30-160); Percent Iron Saturation 37 % (15-50); Potassium 5.3 mmol/L (3.3-5.1); Sodium 142 mmol/L (135-145); Total Iron Binding Capacity 191 mcg/dL (228-428); Total Protein 6.8 g/dL (6.5-8.0); Unsaturated Iron Binding 120 ug/dL
[2022-12-11 15:57] LABS: Ferritin 555 ng/mL (10-250); TSH reflex Free T4 3.67 uIU/mL (0.32-4.0)
[2022-12-11 16:32] LABS: Reflex LDLD? No
== END 2022-12-11 14:12 | disposition home or self-care (01) ==
LOC: HO.LAB 14:11
PROVIDERS: Absent Provider Family Medicine; PCP Family Medicine; Referring Provider Student in an Organized Health Care Education/Training Program; Visit Provider Internal Medicine Endocrinology, Diabetes & Metabolism
DX: E03.9 Hypothyroidism, unspecified (principal); E11.22 Type 2 diabetes mellitus with diabetic chronic kidney disease; N18.32 Chronic kidney disease, stage 3b
CPT/HCPCS: 36415; 80053; 80061; 82728; 83540; 84443

== ENCOUNTER 2022-12-13 14:01 | Outpatient (AMB) | payer OTHER, SELFPAY ==
[2022-12-13 14:09] VITALS: BP 134/78; PULSE 67; TEMP 35.8; O2SAT 93; BMI 34.1
--- NOTE | 2022-12-13 14:09 | MHC.OFFVIS ---
Intake Vital Signs 12/13/22 14:09 Height 5 ft 1 in Weight 180 lb 5.41 oz BMI 34.1 BP 134/78 Blood Pressure Location Rt brachial Position Sitting Pulse 67 Pulse Source Pulse Oximeter Temp 96.5 F L Temp Source Skin Pulse Oximetry (%) 93 Intake Visit Reasons: osteoarthritis follow up and prolia inj Intake Note: Pt seen today for OA follow up and prolia injection Quarter Supervisor Required: No Accompanied by: Daughter Allergies No Known Allergies [No Known Allergies*] Allergy (Verified 12/13/22 14:12) Medication List - Last Reconciled 12/13/22 by Estefani Fernández MD acetaminophen (Tylenol) 650 mg PO Q4H PRN amitriptyline 10 mg PO BEDTIME ascorbate calcium (vitamin C) 500 mg PO DAILY atorvastatin (Lipitor) 80 mg PO DAILY baclofen 5 mg (1/2 x 10 mg) PO BID calcium carbonate-vitamin D3 600 mg-5 mcg (200 unit) (Calcium 600 + D(3)) caps PO cholecalciferol (vitamin D3) (Vitamin D3) 25 mcg PO DAILY citalopram 40 mg PO DAILY conjugated estrogens (Premarin) 0.625 mg vaginal 2XW cranberry extract 300 mg PO DAILY cyanocobalamin (vitamin B-12) 1,000 mcg PO DAILY cyanocobalamin (vitamin B-12) 1,000 mcg PO DAILY denosumab (Prolia) 60 mg subcut [id number] diclofenac sodium 1% (Voltaren) 4 grams topical QID PRN docusate sodium (Stool Softener) 250 mg PO DAILY dulaglutide (Trulicity) 0.75 mg subcut QWEEK ferrous sulfate 325 mg PO DAILY fluticasone propionate 220 mcg/actuation 1 puff inhalation BID glucosamine HCl 1,500 mg PO DAILY hydralazine 25 mg PO BID hydrocortisone acetate (Anucort-HC) 25 mg [place] BID PRN levothyroxine 112 mcg PO DAILY loratadine (Allergy Relief (loratadine)) 10 mg PO DAILY metoprolol tartrate 25 mg PO BID mirabegron ER (Myrbetriq) 25 mg PO DAILY omeprazole 20 mg PO DAILY pregabalin 75 mg PO DAILY pregabalin 100 mg PO BEDTIME propylene glycol 0.6% (Systane Balance) 1 drp ophthalmic (eye) DAILY PRN psyllium seed (sugar) (Metamucil (sugar) oral powder) 1 tbsp PO DAILY sennosides (Natural Senna Laxative) 17.2 mg PO BEDTIME HPI HPI Comments History of Present Illness Details This is an 87-year-old female with osteoporosis presents for follow-up. She was previously diagnosed with PMR and was on steroids. There is no recurrence of PMR symptoms. She is having lower midback pain that radiates to her hips bilaterally. [facility] Medical History Carpal tunnel syndrome Chronic renal insufficiency Diabetes Elevated cholesterol Fibromyalgia GERD (gastroesophageal reflux disease) Hypothyroid Osteoarthritis Osteoporosis Polymyalgia rheumatica Prolapsed hemorrhoids Surgical History H/O colonoscopy History of back surgery History of esophagogastroduodenoscopy (EGD) History of hip surgery Hx of hysterectomy Hx of rotator cuff surgery Hx of tubal ligation Hx of vein stripping S/P carpal tunnel release Family History Mother HTN (hypertension) Father Alzheimer disease Social History Household Members: Spouse and Children Housing: House Alcohol intake: never Patient Tobacco Use Status: Never used Tobacco Advance Directives Date on File: 02/10/20 Current occupational status: 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 Review of Systems [facility] [place] Reports back pain and Reports arthralgias Physical Exam Vital Signs: Last Vital Signs Temp 96.5 F L 12/13/22 14:09 Pulse 67 12/13/22 14:09 BP 134/78 12/13/22 14:09 Pulse Ox 93 12/13/22 14:09 BMI result Body Mass Index 34.1 Const General: cooperative, healthy appearing and comfortable Nutritional Appearance: obese Orientation/consciousness: patient oriented x3 Limitations: ambulation with walker HEENT Head: Yes normocephalic and Yes atraumatic Mouth: moist mucous membranes Resp Effort & Inspection: normal respiratory effort and able to speak in complete sentences Neuro General: patient oriented x3 Extrem Other: Osteoarthritic changes of both hands with no active synovitis new mildly limited left shoulder abduction Results Reviewed Results Reviewed: Laboratory Tests 07/19/2021 EXAMINATION: XR SHOULDER, LEFT CLINICAL INFORMATION: Pain in left shoulder.? COMPARISON: X-rays of the left shoulder August 2014. MRI of the left shoulder November 2014. TECHNIQUE: AP external rotation, Grashey, scapular Y, and axillary views of the left shoulder. FINDINGS: GLENOHUMERAL JOINT: There is nonuniform joint space narrowing with marginal osteophytes indicative of [id number] glenohumeral arthrosis. The humeral head is subluxed cephalad nearly abutting the undersurface of the acromion consistent with rotator cuff tear. There is hypertrophic arthrosis of the acromioclavicular joint. There is ossification or calcification overlying the greater tuberosity of uncertain etiology and significance. This could reflect calcification in the rotator cuff reflective of calcific tendinosis or calcific tendinitis or reflect loose bodies extending into the biceps tendon sheath.? XR/XR shoulder LT min 2V IMPRESSION: Degenerative changes of the left shoulder increased compared to prior x-ray in 2014. 03/21/21 EXAMINATION: XR LUMBOSACRAL SPINE CLINICAL INFORMATION: Postlaminectomy syndrome COMPARISON: 02/02/2016 TECHNIQUE: Three views of the lumbosacral spine. FINDINGS: Interspinous spacing device present at L4-L5. Stable grade 1 anterolisthesis of L4 and L5 approximately 5 mm. Moderate loss of disc space height at L4-L5 and L5-S1. Mild loss of disc space height at L1-L2. Endplate osteophytes present throughout the imaged lower thoracic and lumbar spine. Moderate facet arthropathy at L4-L5 and L5-S1. Paraspinal soft tissues unremarkable. XR/XR lumbar spine 2-3V IMPRESSION: No acute findings. Severe lumbar spondylosis redemonstrated, with interval progression since the prior exam Assessment & Plan Assessment & Plan (1) Osteoporosis: Comment: DEXA 08/18/2019 with osteopenia -1.2. Major risk fracture 16.4%, hip fracture 3.9% DEXA 06/21 L-spine T-score 0.3 (7.7% increase from previous) Left femur neck T-score -1.5 Left femur total T-score -0.4 (8% decrease from previous) Prolia April 2020-present Code(s): M81.0 - Age-related osteoporosis without current pathological fracture Plan: 87-year-old female with osteoporosis returns for follow-up and Prolia injection. She received a Prolia injection today. Her repeat DEXA scan showed some improvement in her L-spine T-score and worsening left femur total T-score.. However patient also has CKD. Continue Prolia 60 mg every 6 months. Continue calcium and vitamin-D supplementation. Continue to follow-up with [facility] before next and Prolia injection in 6 months (2) Polymyalgia rheumatica: Code(s): M35.3 - Polymyalgia rheumatica Plan: in remission. Off prednisone since 2020, previous inflammatory markers stable. I suggested a trial of Salonpas patches for her lower back pain. Plan I spent 25 minutes reviewing patient's chart, evaluating patient, ordering diagnostic workup, counseling patient and documenting in the chart Orders: Orders Comprehensive Met. Panel 6 Months M81.0 - Age-related osteoporosis without current pathological fracture Coding Level of Care Code Est Pt Level 4 (28701) Diagnoses Osteoporosis M81.0 Polymyalgia rheumatica M35.3
== END 2022-12-13 14:51 | disposition home or self-care (01) ==
PROVIDERS: PCP Family Medicine; Visit Provider Student in an Organized Health Care Education/Training Program
DX: M81.0 Age-related osteoporosis without current pathological fracture (principal); M35.3 Polymyalgia rheumatica
CPT/HCPCS: 99214; J0897

== ENCOUNTER → 2022-12-13 14:01 | Outpatient (BNVA) | payer OTHER, SELFPAY | PROVIDERS: PCP Family Medicine; Visit Provider Student in an Organized Health Care Education/Training Program | DX: M81.0 Age-related osteoporosis without current pathological fracture (principal); M35.3 Polymyalgia rheumatica | CPT/HCPCS: 96372; 99212 ==

== ENCOUNTER 2022-12-13 19:25 | Outpatient (REF) | payer OTHER, SELFPAY ==
[2022-12-13 19:54] LABS: Creatinine Urine 61.71 mg/dL; Microalbum/Creatinine Ratio Ur 367.8 ug/mg cr
== END 2022-12-13 19:26 | disposition home or self-care (01) ==
LOC: HO.HHCLNP 19:25
PROVIDERS: Visit Provider Family Medicine
DX: E11.22 Type 2 diabetes mellitus with diabetic chronic kidney disease (principal); N18.32 Chronic kidney disease, stage 3b; M81.0 Age-related osteoporosis without current pathological fracture; M35.3 Polymyalgia rheumatica
CPT/HCPCS: 82043

== ENCOUNTER 2023-03-14 13:48 | Outpatient (AMB) | payer OTHER, SELFPAY ==
--- NOTE | 2023-03-14 14:01 | A.OFFVIS_ITS ---
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 [employer] Present Accompanied by: Daughter Allergies No Known Allergies [No Known Allergies*] Allergy (Verified 03/14/23 14:05) Medication List - Last Reconciled 03/18/23 by VADIM Auguste acetaminophen (Tylenol) 650 mg PO Q4H PRN amitriptyline 10 mg PO BEDTIME ascorbate calcium (vitamin C) 500 mg PO DAILY atorvastatin (Lipitor) 80 mg PO DAILY baclofen 5 mg (1/2 x 10 mg) PO BID calcium carbonate-vitamin D3 600 mg-5 mcg (200 unit) (Calcium 600 + D(3)) caps PO cholecalciferol (vitamin D3) (Vitamin D3) 25 mcg PO DAILY citalopram 40 mg PO DAILY conjugated estrogens (Premarin) 0.625 mg vaginal 2XW cranberry extract 300 mg PO DAILY cyanocobalamin (vitamin B-12) 1,000 mcg PO DAILY cyanocobalamin (vitamin B-12) 1,000 mcg PO DAILY denosumab (Prolia) 60 mg subcut [id number] diclofenac sodium 1% (Voltaren) 4 grams topical QID PRN docusate sodium (Stool Softener) 250 mg PO DAILY dulaglutide (Trulicity) 0.75 mg subcut QWEEK ferrous sulfate 325 mg PO DAILY fluticasone propionate 220 mcg/actuation 1 puff inhalation BID glucosamine HCl 1,500 mg PO DAILY hydralazine 25 mg PO BID hydrocortisone acetate (Anucort-HC) 25 mg [place] BID PRN levothyroxine 112 mcg PO QAM loratadine (Allergy Relief (loratadine)) 10 mg PO DAILY metoprolol tartrate 25 mg PO BID mirabegron ER (Myrbetriq) 25 mg PO DAILY omeprazole 20 mg PO DAILY pregabalin 75 mg PO DAILY pregabalin 100 mg PO BEDTIME propylene glycol 0.6% (Systane Balance) 1 drp ophthalmic (eye) DAILY PRN psyllium seed (sugar) (Metamucil (sugar) oral powder) 1 tbsp PO DAILY sennosides (Natural Senna Laxative) 17.2 mg PO BEDTIME HPI FU HPI Details Jeannine is an 87-year-old female with past medical history of obesity, hyperlipidemia, diabetes who was being evaluated for shortness of breath. She r ecently underwent an echocardiogram and now presents for follow-up. Today she reports that she continues to have shortness of breath with activity. She is mostly sedentary. No PND, orthopnea or edema. No chest discomfort at rest or with activity. No palpitations, presyncope, syncope, falls. Takes meds as directed. Daughter present. ON LICENSE OF [facility] Medical History Prolapsed hemorrhoids Carpal tunnel syndrome Elevated cholesterol Osteoarthritis Osteoporosis Fibromyalgia Chronic renal insufficiency Diabetes GERD (gastroesophageal reflux disease) Hypothyroid Polymyalgia rheumatica Surgical History S/P carpal tunnel release Hx of rotator cuff surgery Hx of vein stripping History of esophagogastroduodenoscopy (EGD) H/O colonoscopy Hx of hysterectomy History of hip surgery History of back surgery Hx of tubal ligation Family History Mother HTN (hypertension) Father Alzheimer disease Social History Household Members: Spouse and Children Housing: House Alcohol intake: never Patient Tobacco Use Status: Never used Tobacco Advance Directives Date on File: 02/10/20 Current occupational status: 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 Review of Systems Const All systems reviewed & are unremarkable except as noted in HPI and below ENT Denies dizziness Card Denies chest pain, Denies chest pain at rest, Denies chest pain with activity, Denies rapid heart rate, Denies pedal edema, Denies edema, Denies leg edema, Denies lightheadedness, Denies palpitations, Denies dyspnea, Reports dyspnea on exertion and Denies orthopnea Resp Denies cough, Denies dyspnea and Reports dyspnea on exertion GI Denies hematochezia and Denies change in stool character Musc Denies abnormal gait, Denies limited range of motion, Denies muscle cramps, Denies muscle weakness, Denies numbness, Denies radiating pain into limb, Denies stiffness and Denies tingling Neuro Denies abnormal gait, Denies dizziness, Denies numbness and Denies tingling Endo Denies palpitations Physical Exam Vital Signs: Last Vital Signs Pulse 80 03/14/23 14:02 BP 134/72 03/14/23 14:02 BMI result Body Mass Index 33.7 Const General: cooperative, healthy appearing, comfortable and no acute distress Orientation/consciousness: patient oriented x3 Neck Neck: Yes normal visual inspection Resp Effort & Inspection: normal respiratory effort Auscultation: clear to auscultation bilaterally, no crackles, no rales, no rhonchi and no wheezes Cardio Jugular venous distension: no JVD Rate: regular rate Rhythm: regular rhythm Heart sounds: S1 normal heart sound present, S2 normal heart sound present, no murmurs and no rubs Neuro General: patient oriented x3 Extrem General: Yes normal to inspection Psych Appearance: grossly normal Mental Status: mental status grossly normal Speech and movement: Normal speech and movement present Assessment & Plan Assessment & Plan (1) SOB (shortness of breath): Code(s): R06.02 - Shortness of breath Plan: Patient has reports of shortness of breath with activity. A Holter monitor previously done for feeling of heart racing showed sinus rhythm with average heart rate 96, SVE 1.7% of time. EKG done 10/03/2022 showed normal sinus rhythm, no acute ST or T-wave abnormalities, rate 70. Echocardiogram done 10/25/2022 showing EF 60-65%, impaired relaxation, mild MR, normal RV, no pulmonary hypertension. A chest x-ray was done following last visit showing no active disease, volume somewhat diminished. Cardiac risk factors of obesity, age, diabetes, hyperlipidemia. No reports of chest discomfort. CAD not entirely ruled out. At present her shortness of breath is most likely related to deconditioning, obesity. Reviewed findings with her. Signs and symptoms of angina reviewed. Cardiology follow-up in 4-5 months to re-evaluate. Stress testing can be considered at that time if symptoms increasing. Coding Level of Care Code Est Pt Level 3 (79287) Diagnoses SOB (shortness of breath) R06.02 Time Spent (min) 22
[2023-03-14 14:02] VITALS: BP 134/72; PULSE 80; BMI 33.7
== END 2023-03-14 14:35 | disposition home or self-care (01) ==
PROVIDERS: PCP Family Medicine; Visit Provider Nurse Practitioner Family
DX: R06.02 Shortness of breath (principal)
CPT/HCPCS: 99213

== ENCOUNTER → 2023-03-14 13:48 | Outpatient (BNVA) | payer OTHER, SELFPAY | PROVIDERS: PCP Family Medicine; Visit Provider Nurse Practitioner Family | DX: R06.02 Shortness of breath (principal) | CPT/HCPCS: 99212 ==

== ENCOUNTER 2023-04-24 12:47 | Emergency (ER) | payer OTHER, SELFPAY ==
--- NOTE | 2023-04-24 12:51 | ECG_ITS ---
Test Reason : weak/dizzy Blood Pressure : / mmHG Vent. Rate : 082 BPM Atrial Rate : 082 BPM P-R Int : 148 ms QRS Dur : 074 ms QT Int : 394 ms P-R-T Axes : 045 -10 082 degrees QTc Int : 460 ms Normal sinus rhythm Minimal voltage criteria for LVH, may be normal variant ( R in aVL ) Borderline ECG When compared with ECG of 28-NOV-2020 16:47, No significant change was found Referred By: Emelyn Malone Electronically Signed By:JANA STEIN
[2023-04-24 13:00] VITALS: BP 142/86; BP 146/74; PULSE 84; PULSE 87; RESP 18; TEMP 37; O2SAT 92; O2SAT 97; BMI 34.4
--- NOTE | 2023-04-24 13:32 | ED_ITS ---
HPI - General Adult General Chief complaint: General Medical Stated complaint: WEAKNESS,HEMORRHOIDS PER EMS Time Seen by Provider: 04/24/23 13:07 Source: patient Mode of arrival: EMS Limitations: no limitations History of Present Illness HPI narrative: To the emergency room complaining of acute on chronic rectal pain. Patient states that she has been struggling with hemorrhoids for several years. About a year ago, she went to see surgery, seems that patient declined surgery at that time . Patient states that now she is willing to go through any procedure to help her with her hemorrhoids since they are getting bigger and more painful. Related Data Home Medications Medication Instructions Recorded Confirmed acetaminophen 325 mg capsule 650 mg PO Q4H PRN 03/29/20 03/18/23 (Tylenol) amitriptyline 10 mg tablet 10 mg PO BEDTIME 03/29/20 03/18/23 ascorbate calcium (vitamin C) 500 500 mg PO DAILY 03/29/20 03/18/23 mg tablet atorvastatin 80 mg tablet (Lipitor) 80 mg PO DAILY 03/29/20 03/18/23 calcium carbonate 600 mg-vitamin cap PO 03/29/20 03/18/23 D3 5 mcg (200 unit) capsule (Calcium 600 + D(3)) citalopram 40 mg tablet 40 mg PO DAILY 03/29/20 03/18/23 cranberry extract 300 mg tablet 300 mg PO DAILY 03/29/20 03/18/23 cyanocobalamin (vitamin B-12) 1,000 mcg PO DAILY 03/29/20 03/18/23 1,000 mcg capsule diclofenac sodium 1 % topical gel 4 g topical QID PRN 03/29/20 03/18/23 (Voltaren) docusate sodium 250 mg capsule 250 mg PO DAILY 03/29/20 03/18/23 (Stool Softener) ferrous sulfate 325 mg (65 mg 325 mg PO DAILY 03/29/20 03/18/23 iron) tablet loratadine 10 mg tablet (Allergy 10 mg PO DAILY 03/29/20 03/18/23 Relief (loratadine)) omeprazole 20 mg capsule,delayed 20 mg PO DAILY 03/29/20 03/18/23 release propylene glycol 0.6 % eye drops 1 drp ophthalmic (eye) DAILY PRN 03/29/20 03/18/23 (Systane Balance) sennosides 8.6 mg tablet (Natural 17.2 mg PO BEDTIME 03/29/20 03/18/23 Senna Laxative) conjugated estrogens 0.625 mg/gram 0.625 mg vaginal 2XW 10/12/20 03/18/23 vaginal cream (Premarin) mirabegron 25 mg tablet,extended 25 mg PO DAILY 10/12/20 03/18/23 release 24 hr (Myrbetriq) hydralazine 25 mg tablet 25 mg PO BID 10/17/21 03/18/23 fluticasone propionate 220 1 puff inhalation BID 12/28/21 03/18/23 mcg/actuation HFA aerosol inhaler glucosamine HCl 1,500 mg tablet 1,500 mg PO DAILY 12/28/21 03/18/23 pregabalin 100 mg capsule 100 mg PO BEDTIME 05/31/22 03/18/23 pregabalin 75 mg capsule 75 mg PO DAILY 05/31/22 03/18/23 cyanocobalamin (vitamin B-12) 1,000 mcg PO DAILY 10/03/22 03/18/23 1,000 mcg tablet dulaglutide 0.75 mg/0.5 mL 0.75 mg subcut QWEEK 12/13/22 03/18/23 subcutaneous pen injector (Trulicity) metoprolol tartrate 25 mg tablet 25 mg PO BID 12/13/22 03/18/23 Previous Rx's Medication Instructions Recorded hydrocortisone acetate 25 mg 25 mg MS BID PRN hemorrhoids #24 ea 12/28/21 rectal suppository (Anucort-HC) psyllium seed (sugar) oral powder 1 tbsp PO DAILY #1,254 grams 12/28/21 (Metamucil (sugar) oral powder) denosumab 60 mg/mL subcutaneous 60 mg subcut [id number] #1 mL 10/02/22 syringe (Prolia) levothyroxine 112 mcg tablet 112 mcg PO QAM #30 tabs 02/28/23 cholecalciferol (vitamin D3) 25 25 mcg PO QAM #30 caps 03/27/23 mcg (1,000 unit) capsule (Vitamin D3) baclofen 10 mg tablet 5 mg (1/2 x 10 mg) PO BID #60 tabs 04/15/23 lidocaine 4 % topical gel 1 appl topical QD-TID PRN pain #30 04/24/23 grams Allergies Allergy/AdvReac Type Severity Reaction Status Date / Time No Known Allergies Allergy Verified 04/24/23 13:05 [No Known Allergies*] Review of Systems 2 Review of Systems: Constitutional : No Weight loss, No Fever, No Chills, No Night Sweats, No Fatigue, No Malaise ENT/Mouth : No Hearing loss, No Ear Pain, No Nasal Congestion, No Sinus Pain, No Hoarseness, No sore throat, No Rhinorrhea, No Swallowing Difficulty Eyes: No Eye Pain, No Swelling, No Redness, No Foreign Body, No Discharge, No Vision Changes Cardiovascular : No Chest Pain, No SOB, No Dyspnea on Exertion, No Orthopnea, No Edema, No Palpitations Respiratory : No Cough, No Sputum, No Wheezing, No Smoke Exposure, No Dyspnea Gastrointestinal : No Nausea, No Vomiting, No Diarrhea, No Constipation, No abdominal Pain, complaining of bleeding hemorrhoids. Genitourinary : no irregular bleeding, No Dysuria, No Urinary Frequency, No Hematuria, No Urinary Incontinence, No Urgency, No Flank Pain, No Urinary Flow Changes, No Hesitancy Musculoskeletal : No joint pain, No Myalgias, No Joint Swelling Skin : No Skin Lesions, No rash Neuro : No Weakness, No Numbness, No Paresthesias, No Loss of Consciousness, No Dizziness, No Headache Psych : No Anxiety/Panic, No Depression, No SI/HI/AH/VH, No Social Issues, Heme/Lymph: No Bruising, No Bleeding,No Lymphadenopathy Endocrine : No Polyuria, No Polydipsia, No Temperature Intolerance PMFSH Past Medical History Medical History Prolapsed hemorrhoids Carpal tunnel syndrome Elevated cholesterol Osteoarthritis Osteoporosis Fibromyalgia Chronic renal insufficiency Diabetes GERD (gastroesophageal reflux disease) Hypothyroid Polymyalgia rheumatica Surgical History S/P carpal tunnel release Hx of rotator cuff surgery Hx of vein stripping History of esophagogastroduodenoscopy (EGD) H/O colonoscopy Hx of hysterectomy History of hip surgery History of back surgery Hx of tubal ligation Family History Family History Mother HTN (hypertension) Father Alzheimer disease Social History Social History Household Members: Spouse and Children Housing: House Alcohol intake: never Patient Tobacco Use Status: Never used Tobacco Advance Directives Date on File: 02/10/20 Current occupational status: 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 Oriented X3. No acute distress. Eyes: Pupils equal, round and reactive to light. ENT: Pharynx normal. Neck: Normal inspection. Neck supple. No lymph nodes noted. No crepitus CVS: Normal heart rate and rhythm. Pulses normal. Normal S1 and S2 Respiratory: No respiratory distress. Breath sounds normal. No Wheezing. No rales Abdomen: Soft and nontender. No rigidity. No distention. hemorrhoids present, see picture below Skin: Skin warm and dry. Normal skin color. Normal skin turgor. Extremities: No lower extremity edema. No Lacerations. No Rash Neuro: Oriented X 3. No motor deficit. No sensory deficit. Moving all extremities. No slurred speech. CN 2 through 12 grossly intact Psych: calm, cooperative, normal affect Medical Decision Making Medical Decision Making MDM Narrative: At this time, patient has no bleeding hemorrhoids. Discussed with the patient to make sure that she has soft bowel movements. Also, I discussed the patient with Dr. Nelson, at this time, there is no need to drain the hemorrhoids. Recommendations: Frequent warm soaks and 5% lidocaine Patient will be seen by Dr. Nelson in his office. Patient agrees with plan Differential Diagnosis Differential Diagnoses: The differential diagnosis associated with the presentation includes (Internal hemorrhoids, external hemorrhoids, rectal prolapse) Discharge Plan Discharge Clinical Impression: External hemorrhoid Patient Disposition: Home, Self-Care Instructions: Hemorrhoids (ED) Additional Instructions: Please follow-up with your primary care physician tomorrow. If you have any worsening or new symptoms, please return to the emergency room or call 911 Prescriptions: New lidocaine 4 % gel 1 appl topical QD-TID PRN (Reason: pain) Qty: 30 0RF No Action Prolia 60 mg/mL syringe 60 mg subcut [id number] Qty: 1 0RF levothyroxine 112 mcg tablet 112 mcg PO QAM Qty: 30 2RF cholecalciferol (vitamin D3) [Vitamin D3] 25 mcg (1,000 unit) capsule 25 mcg PO QAM Qty: 30 2RF baclofen 10 mg tablet 5 mg PO BID Qty: 60 1RF Myrbetriq 25 mg tablet extended release 24 hr 25 mg PO DAILY Premarin 0.625 mg/gram cream 0.625 mg vaginal 2XW Rx Instructions: off 5 days; repeat cycle ascorbate calcium (vitamin C) 500 mg tablet 500 mg PO DAILY ferrous sulfate 325 mg (65 mg iron) tablet 325 mg PO DAILY atorvastatin [Lipitor] 80 mg tablet 80 mg PO DAILY omeprazole 20 mg capsule,delayed release(DR/EC) 20 mg PO DAILY docusate sodium [Stool Softener] 250 mg capsule 250 mg PO DAILY citalopram 40 mg tablet 40 mg PO DAILY cyanocobalamin (vitamin B-12) 1,000 mcg capsule 1,000 mcg PO DAILY acetaminophen [Tylenol] 325 mg capsule 650 mg PO Q4H PRN amitriptyline 10 mg tablet 10 mg PO BEDTIME loratadine [Allergy Relief (loratadine)] 10 mg tablet 10 mg PO DAILY cranberry extract 300 mg tablet 300 mg PO DAILY Rx Instructions: administer with a meal Calcium 600 + D(3) 600 mg calcium- 200 unit capsule PO Systane Balance 0.6 % drops 1 drp ophthalmic (eye) DAILY PRN diclofenac sodium [Voltaren] 1 % gel 4 g topical QID PRN Rx Instructions: apply to single knee, ankle, foot; for foot includes sole/toes/top of foot sennosides [Natural Senna Laxative] 8.6 mg tablet 17.2 mg PO BEDTIME hydralazine 25 mg tablet 25 mg PO BID pregabalin 75 mg capsule 75 mg PO DAILY pregabalin 100 mg capsule 100 mg PO BEDTIME glucosamine HCl 1,500 mg tablet 1,500 mg PO DAILY Rx Instructions: administer with a meal fluticasone propionate 220 mcg/actuation HFA aerosol inhaler 1 puff inhalation BID Metamucil (sugar) Powder 1 tbsp PO DAILY Qty: 1254 0RF hydrocortisone acetate [Anucort-HC] 25 mg suppository 25 mg MS BID PRN (Reason: hemorrhoids) Qty: 24 0RF Trulicity 0.75 mg/0.5 mL pen injector 0.75 mg subcut QWEEK cyanocobalamin (vitamin B-12) 1,000 mcg tablet 1,000 mcg PO DAILY metoprolol tartrate 25 mg tablet 25 mg PO BID
[2023-04-24] MEDS: Lidocaine 5 % Ointment 35 GM 1 APPL TOPICAL (14:01)
[2023-04-24 14:12] VITALS: RESP 18; O2SAT 97
== END 2023-04-24 14:13 | disposition home or self-care (01) ==
PROVIDERS: Emergency Provider Emergency Medicine; PCP Family Medicine
DX: K64.4 Residual hemorrhoidal skin tags (principal); E11.9 Type 2 diabetes mellitus without complications
CPT/HCPCS: 93005; 99283; 99284

== ENCOUNTER → 2023-04-24 12:51 | Outpatient (BNV) | payer OTHER, SELFPAY | PROVIDERS: Emergency Provider Emergency Medicine; PCP Family Medicine; Visit Provider Internal Medicine | DX: R53.1 Weakness (principal); R42 Dizziness and giddiness | CPT/HCPCS: 93010 ==

== ENCOUNTER 2023-04-26 16:21 | Outpatient (REF) | payer OTHER, SELFPAY ==
[2023-04-26 16:38] LABS: MANUAL DIFF FLAG NO
[2023-04-26 18:09] LABS: Basophils Percent Auto 0.4 % (0-2); Eosinophils Absolute Auto 0.2 X10*3/uL (0.0-0.4); Eosinophils Percent Auto 3.1 % (0-4); Hemoglobin 11.1 g/dl (12.0-16.0); Imm Gran Abs Auto 0.06 X10*3/uL (0.00-0.03); Imm Gran Pct Auto 0.9 % (0.0-0.4); Lymphocytes Absolute Auto 2.3 X10*3/uL (1.2-4.9); Mean Corpuscular HGB Conc 30.8 g/dl (31.0-35.0); Mean Corpuscular Hemoglobin 30.2 pg (27.0-33.0); Mean Corpuscular Volume 97.8 fL (80.0-98.0); Monocytes Absolute Auto 0.8 X10*3/uL (0.1-1.2); Monocytes Percent Auto 12.1 % (2-11); Neutrophils Absolute Auto 3.5 x10*3/uL (2.0-8.3); Neutrophils Percent Auto 50.5 % (45-73); Platelet Count 246 X10*3/uL (160-400); Red Blood Count 3.68 X10*6/uL (4.20-5.50); Red Cell Distribution Width 13.2 % (11.0-16.0); White Blood Count 6.9 X10*3/uL (4.8-10.8)
[2023-04-26 18:20] LABS: Albumin Level 3.9 g/dL (3.5-5.0); Anion Gap 14 (12-20); Blood Urea Nitrogen 21 mg/dL (9-16); Calcium 8.5 mg/dL (8.4-10.2); Carbon Dioxide 22 mmol/L (22-29); Chloride 110 mmol/L (96-108); Estimated Glomerular Filt Rate 37; Phosphorus 2.7 mg/dL (2.7-4.5); Potassium 4.9 mmol/L (3.3-5.1); Sodium 141 mmol/L (135-145)
[2023-04-26 18:35] LABS: Vitamin D 25-OH Total 31.7 ng/mL (>30)
[2023-04-27 08:22] LABS: Parathyroid Hormone Intact 335.1 pg/mL (8.7-77.1)
== END 2023-04-26 16:22 | disposition home or self-care (01) ==
LOC: HO.LAB 16:21
PROVIDERS: PCP Family Medicine; Visit Provider Internal Medicine Nephrology
DX: E11.22 Type 2 diabetes mellitus with diabetic chronic kidney disease (principal); N18.32 Chronic kidney disease, stage 3b; N25.0 Renal osteodystrophy
CPT/HCPCS: 36415; 80051; 82040; 82306; 82310; 82565; 83735; 83970; 84100; 84520; 85025

== ENCOUNTER 2023-05-09 10:03 | Outpatient (AMB) | payer OTHER, SELFPAY ==
--- NOTE | 2023-05-09 10:14 | A.OFFVIS_ITS ---
Intake Vital Signs 05/09/23 10:21 Height 5 ft 1 in Weight 176 lb BMI 33.3 BP 126/61 Blood Pressure Location Lt brachial Position Sitting Pulse 89 Intake Visit Reasons: painful hemorrhoids Intake Note: This patient presents for an assessment for painful hemorrhoids. Pt c/o;occasional rectal bleeding, reports no rectal pain. 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 I would seen her in 2021 because of large prolapsing hemorrhoids. She did not want any surgical intervention. She had to go to [place] and was on a long airplane ride last March,. When she got back, she stated that she had a lot of pain with her hemorrhoids. She was brought to the ER on April 24 and she was noted to have swollen hemorrhoids with some mucosal prolapse. She was given lidocaine cream and this has improved significantly Currently she says her pain has resolved. She will sit down comfortably. She denies any bleeding. [facility] Medical History Prolapsed hemorrhoids Carpal tunnel syndrome Elevated cholesterol Osteoarthritis Osteoporosis Fibromyalgia Chronic renal insufficiency Diabetes GERD (gastroesophageal reflux disease) Hypothyroid Polymyalgia rheumatica Surgical History S/P carpal tunnel release Hx of rotator cuff surgery Hx of vein stripping History of esophagogastroduodenoscopy (EGD) H/O colonoscopy Hx of hysterectomy History of hip surgery History of back surgery Hx of tubal ligation Family History Mother HTN (hypertension) Father Alzheimer disease Social History Household Members: Spouse and Children Housing: House Alcohol intake: former Patient Tobacco Use Status: Never used Tobacco Advance Directives Date on File: 02/10/20 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 occupational status: 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 Review of Systems Const Denies chills and Denies fever(s) Card Denies chest pain, Denies dyspnea and Denies dyspnea on exertion Resp Denies cough, Denies dyspnea and Denies dyspnea on exertion GI Denies hematochezia, Denies change in bowel habits and Reports constipation Denies hematuria Musc Reports abnormal gait, Reports back pain, Reports arthralgias and Reports limited range of motion Neuro Reports abnormal gait, Denies focal weakness and Denies convulsions Psych Denies depression and Denies mood swings Physical Exam Const Other: Uses a walker to ambulate, has difficulty General: comfortable and no acute distress Orientation/consciousness: patient oriented x3 Neck Neck: Yes no lymphadenopathy Resp Auscultation: clear to auscultation bilaterally Cardio Rhythm: regular rhythm GI Other: Rectal exam shows internal external hemorrhoids with some prolapse of the internal component, nontender at this time, no bleeding, no significant inflammation edema Palpation (GI): Soft to palpation, nontender and no guarding Neuro General: patient oriented x3 Assessment & Plan Assessment & Plan (1) Prolapsed hemorrhoids: Code(s): K64.8 - Other hemorrhoids Plan: She has internal and external hemorrhoids with note of prolapse. This became worse last April 24 with note of significant inflammation. She started on lidocaine cream by the ER physician. She says that her swelling and pain have resolved. She currently does not any have been pain or tenderness. She does want to avoid any surgical intervention. I will prescribe her Metamucil to help with bowel movements and decrease chances of swelling of her hemorrhoids. She can continue with lidocaine cream if this helps She can follow up with me on a p.r.n. basis. She is comfortable with the plan. Coding Level of Care Code Est Pt Level 3 (42835) Diagnoses Prolapsed hemorrhoids K64.8
--- NOTE | 2023-05-09 10:14 | MHC.OFFVIS ---
Intake Intake Visit Reasons: painful hemorrhoids Allergies No Known Allergies [No Known Allergies*] Allergy (Verified 05/02/23 14:28) PFSH Medical History Prolapsed hemorrhoids Carpal tunnel syndrome Elevated cholesterol Osteoarthritis Osteoporosis Fibromyalgia Chronic renal insufficiency Diabetes GERD (gastroesophageal reflux disease) Hypothyroid Polymyalgia rheumatica Surgical History S/P carpal tunnel release Hx of rotator cuff surgery Hx of vein stripping History of esophagogastroduodenoscopy (EGD) H/O colonoscopy Hx of hysterectomy History of hip surgery History of back surgery Hx of tubal ligation Family History Mother HTN (hypertension) Father Alzheimer disease Social History Household Members: Spouse and Children Housing: House Alcohol intake: former Patient Tobacco Use Status: Never used Tobacco Advance Directives Date on File: 02/10/20 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
[2023-05-09 10:21] VITALS: BP 126/61; PULSE 89; BMI 33.3
== END 2023-05-09 10:30 | disposition home or self-care (01) ==
PROVIDERS: PCP Family Medicine; Visit Provider Surgery
DX: K64.8 Other hemorrhoids (principal)
CPT/HCPCS: 99213

== ENCOUNTER → 2023-05-09 10:03 | Outpatient (BNVA) | payer OTHER, SELFPAY | PROVIDERS: PCP Family Medicine; Visit Provider Surgery | DX: K64.8 Other hemorrhoids (principal) | CPT/HCPCS: 99212 ==

== ENCOUNTER 2023-05-21 10:51 | Outpatient (REF) | payer OTHER, SELFPAY ==
[2023-05-21 12:46] LABS: Free T4 (Free Thyroxine) 1.07 ng/dL (0.71-1.85); Thyroid Stimulating Hormone 2.06 uIU/mL (0.32-4.0)
== END 2023-05-21 10:52 | disposition home or self-care (01) ==
LOC: HO.LAB 10:51
PROVIDERS: PCP Family Medicine; Visit Provider Internal Medicine Endocrinology, Diabetes & Metabolism
DX: E03.9 Hypothyroidism, unspecified (principal)
CPT/HCPCS: 36415; 84439; 84443

== ENCOUNTER 2023-05-28 15:00 | Outpatient (AMB) | payer OTHER, SELFPAY ==
--- NOTE | 2023-05-28 15:11 | A.OFFVIS_ITS ---
Intake Vital Signs 05/28/23 15:13 Height 5 ft 1 in Weight 176 lb 5.917 oz BMI 33.3 BP 116/58 L Blood Pressure Location Lt brachial Position Sitting Pulse 56 Pulse Source Pulse Oximeter Intake Visit Reasons: Hypothyroidism-confirmed Intake Note: Patient present today for Hypothyroidism follow up visit. Upholsterer Assembly Line Required: Yes Upholsterer Assembly Line Language: Director Instrumentation Name: [facility] medical staff Information Interpreted: non-clinical & clinical Accompanied by: Daughter Allergies No Known Allergies [No Known Allergies*] Allergy (Verified 05/28/23 15:18) Medication List - Last Reconciled 05/28/23 by Otoniel Jurado MD acetaminophen (Tylenol) 650 mg PO Q4H PRN amitriptyline 10 mg PO BEDTIME ascorbate calcium (vitamin C) 500 mg PO DAILY atorvastatin (Lipitor) 80 mg PO DAILY baclofen 5 mg (1/2 x 10 mg) PO BID calcium carbonate-vitamin D3 600 mg-5 mcg (200 unit) (Calcium 600 + D(3)) caps PO cholecalciferol (vitamin D3) (Vitamin D3) 25 mcg PO QAM citalopram 40 mg PO DAILY conjugated estrogens (Premarin) 0.625 mg vaginal 2XW cranberry extract 300 mg PO DAILY cyanocobalamin (vitamin B-12) 1,000 mcg PO DAILY cyanocobalamin (vitamin B-12) 1,000 mcg PO DAILY denosumab (Prolia) 60 mg subcut [id number] diclofenac sodium 1% (Voltaren) 4 grams topical QID PRN docusate sodium (Stool Softener) 250 mg PO DAILY dulaglutide (Trulicity) 0.75 mg subcut QWEEK ferrous sulfate 325 mg PO DAILY fluticasone propionate 220 mcg/actuation 1 puff inhalation BID glucosamine HCl 1,500 mg PO DAILY hydralazine 25 mg PO BID hydrocortisone acetate (Anucort-HC) 25 mg IA BID PRN levothyroxine 112 mcg PO QAM lidocaine 4% 1 appl topical QD-TID PRN loratadine (Allergy Relief (loratadine)) 10 mg PO DAILY metoprolol tartrate 25 mg PO BID mirabegron ER (Myrbetriq) 25 mg PO DAILY omeprazole 20 mg PO DAILY pregabalin 75 mg PO DAILY pregabalin 100 mg PO BEDTIME propylene glycol 0.6% (Systane Balance) 1 drp ophthalmic (eye) DAILY PRN psyllium seed (sugar) (Metamucil (sugar) oral powder) 1 tbsp PO DAILY sennosides (Natural Senna Laxative) 17.2 mg PO BEDTIME witch soni 50% (Hemorrhoidal Hygiene) pad topical HPI HPI Comments History of Present Illness Details 87 YO F with PMHx 5 yrs who is seen in consultation at the request of his PCP for Hyothyroidism.Never seen endo before Currently using levothyroxine 112 mcg increased by primary care provider in 07/2022 Denies + fatigue, +weight gain, -cold intolerance, +dry skin, -hair loss, - constipation. There is no hx of +hyperlipidemia . Denies obstructive sx of goiter . Denies consuming any kelp or seaweed. Denies taking amiodarone. 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 PFSH Medical History Prolapsed hemorrhoids Carpal tunnel syndrome Elevated cholesterol Osteoarthritis Osteoporosis Fibromyalgia Chronic renal insufficiency Diabetes GERD (gastroesophageal reflux disease) Hypothyroid Polymyalgia rheumatica Surgical History S/P carpal tunnel release Hx of rotator cuff surgery Hx of vein stripping History of esophagogastroduodenoscopy (EGD) H/O colonoscopy Hx of hysterectomy History of hip surgery History of back surgery Hx of tubal ligation Family History Mother HTN (hypertension) Father Alzheimer disease Social History Household Members: Spouse and Children Housing: House Alcohol intake: former Patient Tobacco Use Status: Never used Tobacco Advance Directives Date on File: 02/10/20 Current occupational status: 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 Thyroid gland measure 15 gms . No nodules or tenderness palpated. There is no cervical adenopathy palpated. Lungs CTA. Heart S1, S2 Reg R/R -M/R/G. Abdominal exam benign. Skin exam reveals absence of dryness or thyroid dermopathy or vitiligo. Nail exam reveals absence of thyroid acropachy or oncholysis. Neurologic exam reveals 2+ reflexes . Muscle Strength is 5/5 proximally. There are no tremors in upper extremities. 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 She appears to be replaced on 112 mcg levothyroxine. She appears to be clinically and biochemically euthyroid. Plan is to continue the current therapy. At this point, patient returned to the care of her primary care provider returned back to endocrinology as needed Coding Level of Care Code Est Pt Level 3 (43113) Diagnoses Hypothyroid E03.9
[2023-05-28 15:13] VITALS: BP 116/58; PULSE 56; BMI 33.3
== END 2023-05-28 15:26 | disposition home or self-care (01) ==
PROVIDERS: PCP Family Medicine; Visit Provider Internal Medicine Endocrinology, Diabetes & Metabolism
DX: E03.9 Hypothyroidism, unspecified (principal)
CPT/HCPCS: 99213

== ENCOUNTER → 2023-05-28 15:00 | Outpatient (BNVA) | payer OTHER, SELFPAY | PROVIDERS: PCP Family Medicine; Visit Provider Internal Medicine Endocrinology, Diabetes & Metabolism | DX: E06.3 Autoimmune thyroiditis (principal); E03.8 Other specified hypothyroidism; Z79.899 Other long term (current) drug therapy | CPT/HCPCS: 99212 ==

== ENCOUNTER 2023-06-06 09:00 | Outpatient (REF) | payer OTHER, SELFPAY | END 2023-06-06 09:01 | disposition home or self-care (01) | LOC: HO.MAMMO 09:00 | PROVIDERS: PCP Family Medicine; Visit Provider Family Medicine | DX: Z12.31 Encounter for screening mammogram for malignant neoplasm of breast (principal) | CPT/HCPCS: 77063; 77067 ==

== ENCOUNTER → 2023-06-06 09:00 | Outpatient (BNV) | payer OTHER, SELFPAY | PROVIDERS: PCP Family Medicine; Visit Provider Radiology Diagnostic Radiology | DX: Z12.31 Encounter for screening mammogram for malignant neoplasm of breast (principal) | CPT/HCPCS: 77063; 77067 ==

== ENCOUNTER 2023-06-14 14:49 | Outpatient (REF) | payer OTHER, SELFPAY ==
[2023-06-14 17:04] LABS: Alanine Aminotransferase 14 U/L (0-31); Albumin Level 3.9 g/dL (3.5-5.0); Alkaline Phosphatase 64 U/L (39-117); Anion Gap 11 (12-20); Aspartate Amino Transferase 17 U/L (5-31); Bilirubin Total 0.2 mg/dL (0.0-1.0); Blood Urea Nitrogen 24 mg/dL (9-16); Calcium 9.2 mg/dL (8.4-10.2); Carbon Dioxide 24 mmol/L (22-29); Chloride 111 mmol/L (96-108); Estimated Glomerular Filt Rate 41; Glucose Random 120 mg/dL (60-115); Potassium 4.8 mmol/L (3.3-5.1); Sodium 141 mmol/L (135-145); Total Protein 6.8 g/dL (6.5-8.0)
== END 2023-06-14 14:50 | disposition home or self-care (01) ==
LOC: HO.LAB 14:49
PROVIDERS: PCP Family Medicine; Visit Provider Student in an Organized Health Care Education/Training Program
DX: M81.0 Age-related osteoporosis without current pathological fracture (principal)
CPT/HCPCS: 36415; 80053

== ENCOUNTER 2023-06-18 14:48 | Outpatient (AMB) | payer OTHER, SELFPAY ==
[2023-06-18 14:56] VITALS: BP 118/56; BMI 32.9
--- NOTE | 2023-06-18 14:56 | MHC.OFFVIS ---
Intake Vital Signs 06/18/23 14:56 Height 5 ft 1 in Weight 174 lb 2.643 oz BMI 32.9 BP 118/56 L Blood Pressure Location Rt brachial Position Sitting Intake Visit Reasons: osteoporosis/prolia Intake Note: Patient last seen 12/13/22 with prolia injection, presents today for follow up and test results. Due for prolia today. C/o bl neck pain that radiates down to shoulders, also reports bl knee pain. Engineering Project Designer Required: No Accompanied by: Daughter Allergies No Known Allergies [No Known Allergies*] Allergy (Verified 06/18/23 14:58) Medication List - Last Reconciled 06/18/23 by Estefani Fernández MD acetaminophen (Tylenol) 650 mg PO Q4H PRN amitriptyline 10 mg PO BEDTIME ascorbic acid (vitamin C) (Vitamin C) 500 mg PO BID atorvastatin (Lipitor) 80 mg PO DAILY baclofen 5 mg (1/2 x 10 mg) PO BID calcium carbonate-vitamin D3 600 mg-10 mcg (400 unit) 1 tab PO BID cholecalciferol (vitamin D3) (Vitamin D3) 25 mcg PO QAM citalopram 20 mg PO DAILY conjugated estrogens (Premarin) 0.625 mg vaginal 2XW cranberry extract 300 mg PO DAILY cyanocobalamin (vitamin B-12) 1,000 mcg PO DAILY denosumab (Prolia) 60 mg subcut [id number] diclofenac sodium 1% (Voltaren) 4 grams topical QID PRN docusate sodium 100 mg PO BID dulaglutide (Trulicity) 0.75 mg subcut QWEEK ferrous sulfate 325 mg PO DAILY fluticasone propionate 220 mcg/actuation 1 puff inhalation BID glucosamine HCl 1,500 mg PO DAILY hydralazine 37.5 mg PO BID hydrocortisone acetate (Anucort-HC) 25 mg MD BID PRN levothyroxine 112 mcg PO QAM lidocaine 4% 1 appl topical QD-TID PRN loratadine (Allergy Relief (loratadine)) 10 mg PO DAILY metoprolol tartrate 25 mg PO BID mirabegron ER (Myrbetriq) 25 mg PO DAILY omeprazole 20 mg PO DAILY pregabalin 75 mg PO DAILY pregabalin 100 mg PO BEDTIME propylene glycol 0.6% (Systane Balance) 1 drp ophthalmic (eye) DAILY PRN psyllium seed (sugar) (Metamucil (sugar) oral powder) 1 tbsp PO DAILY sennosides (Natural Senna Laxative) 17.2 mg PO BEDTIME witch soni 50% (Hemorrhoidal Hygiene) pad topical HPI HPI Comments History of Present Illness Details This is an 87-year-old female with osteoporosis presents for follow-up. She was previously diagnosed with PMR and was on steroids. There is no recurrence of PMR symptoms. She remains on Prolia every 6 months. She is due for Prolia injection today. She states that she has been having neck pain that radiates down both shoulders as well as lower back pain that radiates towards her lower extremities worse with walking. Patient has a massage machine at home. She also does home exercises that she was taught at physical therapy for her neck and lower back. COUNT INCLUDES THE [facility] Medical History Prolapsed hemorrhoids Carpal tunnel syndrome Elevated cholesterol Osteoarthritis Osteoporosis Fibromyalgia Chronic renal insufficiency Diabetes GERD (gastroesophageal reflux disease) Hypothyroid Polymyalgia rheumatica Surgical History S/P carpal tunnel release Hx of rotator cuff surgery Hx of vein stripping History of esophagogastroduodenoscopy (EGD) H/O colonoscopy Hx of hysterectomy History of hip surgery History of back surgery Hx of tubal ligation Family History Mother HTN (hypertension) Father Alzheimer disease Social History Household Members: Spouse and Children Housing: House Alcohol intake: former Patient Tobacco Use Status: Never used Tobacco Advance Directives Date on File: 02/10/20 Current occupational status: 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 Review of Systems ENT Reports neck pain Musc Reports back pain, Reports arthralgias, Reports neck pain and Reports radiating pain into limb Physical Exam Vital Signs: Last Vital Signs BP 118/56 L 06/18/23 14:56 BMI result Body Mass Index 32.9 Const General: cooperative, healthy appearing and comfortable Nutritional Appearance: obese Orientation/consciousness: patient oriented x3 Limitations: ambulation with walker HEENT Head: Yes normocephalic and Yes atraumatic Mouth: moist mucous membranes Resp Effort & Inspection: normal respiratory effort and able to speak in complete sentences Neuro General: patient oriented x3 Extrem Other: Osteoarthritic changes of both hands with no active synovitis Positive straight leg raise test bilaterally Results Reviewed Results Reviewed: Laboratory Tests 07/19/2021 EXAMINATION: XR SHOULDER, LEFT CLINICAL INFORMATION: Pain in left shoulder.? COMPARISON: X-rays of the left shoulder August 2014. MRI of the left shoulder November 2014. TECHNIQUE: AP external rotation, Grashey, scapular Y, and axillary views of the left shoulder. FINDINGS: GLENOHUMERAL JOINT: There is nonuniform joint space narrowing with marginal osteophytes indicative of [id number] glenohumeral arthrosis. The humeral head is subluxed cephalad nearly abutting the undersurface of the acromion consistent with rotator cuff tear. There is hypertrophic arthrosis of the acromioclavicular joint. There is ossification or calcification overlying the greater tuberosity of uncertain etiology and significance. This could reflect calcification in the rotator cuff reflective of calcific tendinosis or calcific tendinitis or reflect loose bodies extending into the biceps tendon sheath.? XR/XR shoulder LT min 2V IMPRESSION: Degenerative changes of the left shoulder increased compared to prior x-ray in 2015. 03/21/21 EXAMINATION: XR LUMBOSACRAL SPINE CLINICAL INFORMATION: Postlaminectomy syndrome COMPARISON: 02/02/2016 TECHNIQUE: Three views of the lumbosacral spine. FINDINGS: Interspinous spacing device present at L4-L5. Stable grade 1 anterolisthesis of L4 and L5 approximately 5 mm. Moderate loss of disc space height at L4-L5 and L5-S1. Mild loss of disc space height at L1-L2. Endplate osteophytes present throughout the imaged lower thoracic and lumbar spine. Moderate facet arthropathy at L4-L5 and L5-S1. Paraspinal soft tissues unremarkable. XR/XR lumbar spine 2-3V IMPRESSION: No acute findings. Severe lumbar spondylosis redemonstrated, with interval progression since the prior exam Assessment & Plan Assessment & Plan (1) Osteoporosis: Comment: DEXA 08/18/2019 with osteopenia -1.2. Major risk fracture 16.4%, hip fracture 3.9% DEXA 06/21 L-spine T-score 0.3 (7.7% increase from previous) Left femur neck T-score -1.5 Left femur total T-score -0.4 (8% decrease from previous) Prolia April 2020-present Code(s): M81.0 - Age-related osteoporosis without current pathological fracture Qualifiers: Osteoporosis type: age-related Presence of current pathological fracture: without current pathological fracture Qualified Code(s): M81.0 - Age-related osteoporosis without current pathological fracture Plan: 87-year-old female with osteoporosis returns for follow-up and Prolia injection. Her repeat DEXA scan 05/2022 showed some improvement in her L-spine T-score and worsening left femur total T-score. Continue Prolia 60 mg every 6 months. Continue calcium and vitamin-D supplementation. Continue to follow-up with Nephrology Labs before next visit and Prolia injection in 6 months (2) Polymyalgia rheumatica: Code(s): M35.3 - Polymyalgia rheumatica Plan: in remission. Off prednisone since 2020, previous inflammatory markers stable. (3) Lumbar radiculitis: Code(s): M54.16 - Radiculopathy, lumbar region Plan: Patient not interested in referral to PT at this point. She will continue with home exercises (4) Degenerative cervical disc: Code(s): M50.30 - Other cervical disc degeneration, unspecified cervical region Plan: Not interested in PT evaluation at this point. She will continue with home exercise Plan I spent 25 minutes reviewing patient's chart, evaluating patient, ordering diagnostic workup, counseling patient & her daughter and documenting in the chart Coding Level of Care Code Est Pt Level 4 (15375) Diagnoses Age-related osteoporosis without current pathological fracture M81.0 Osteoporosis type: age-related Presence of current pathological fracture: without current pathological fracture Polymyalgia rheumatica M35.3 Lumbar radiculitis M54.16 Degenerative cervical disc M50.30
== END 2023-06-18 15:47 | disposition home or self-care (01) ==
PROVIDERS: PCP Family Medicine; Visit Provider Student in an Organized Health Care Education/Training Program
DX: M81.0 Age-related osteoporosis without current pathological fracture (principal); M35.3 Polymyalgia rheumatica; M54.16 Radiculopathy, lumbar region; M50.30 Other cervical disc degeneration, unspecified cervical region; M89.49 Other hypertrophic osteoarthropathy, multiple sites
CPT/HCPCS: 99214

== ENCOUNTER → 2023-06-18 14:48 | Outpatient (BNVA) | payer OTHER, SELFPAY | PROVIDERS: PCP Family Medicine; Visit Provider Student in an Organized Health Care Education/Training Program | DX: M81.0 Age-related osteoporosis without current pathological fracture (principal); M35.3 Polymyalgia rheumatica; M54.16 Radiculopathy, lumbar region; M50.30 Other cervical disc degeneration, unspecified cervical region | CPT/HCPCS: 96372; 99212; J0897 ==

== ENCOUNTER 2023-08-29 14:30 | Outpatient (AMB) | payer OTHER, SELFPAY ==
[2023-08-29 14:33] VITALS: BP 134/72; PULSE 68; BMI 33.1
--- NOTE | 2023-08-29 14:33 | MHC.OFFVIS ---
Vital Signs 08/29/23 14:33 Height 5 ft 1 in Weight 175 lb 0.752 oz BMI 33.1 BP 134/72 Blood Pressure Location Lt brachial Position Sitting Pulse 68 Pulse Source Pulse Oximeter Intake Visit Reasons: r/s 08/06/23 5 mos followup Media Relations Intern Required: No Surgery Consultant: Surgery Consultant Present Allergies No Known Allergies [No Known Allergies*] Allergy (Verified 08/29/23 14:36) Medication List - Last Reconciled 08/29/23 by VADIM Auguste acetaminophen (Tylenol) 650 mg PO Q4H PRN amitriptyline 10 mg PO BEDTIME ascorbic acid (vitamin C) (Vitamin C) 500 mg PO BID atorvastatin (Lipitor) 80 mg PO DAILY baclofen 5 mg (1/2 x 10 mg) PO BID calcium carbonate-vitamin D3 600 mg-10 mcg (400 unit) 1 tab PO BID cholecalciferol (vitamin D3) (Vitamin D3) 25 mcg PO DAILY citalopram 20 mg PO DAILY conjugated estrogens (Premarin) 0.625 mg vaginal 2XW cranberry extract 300 mg PO DAILY cyanocobalamin (vitamin B-12) 1,000 mcg PO DAILY denosumab (Prolia) 60 mg subcut [id number] diclofenac sodium 1% (Voltaren) 4 grams topical QID PRN docusate sodium 100 mg PO BID dulaglutide (Trulicity) 0.75 mg subcut QWEEK ferrous sulfate 325 mg PO DAILY fluticasone propionate 220 mcg/actuation 1 puff inhalation BID glucosamine HCl 1,500 mg PO DAILY hydralazine 37.5 mg PO BID hydrocortisone acetate (Anucort-HC) 25 mg [place] BID PRN levothyroxine 112 mcg PO QAM lidocaine 4% 1 appl topical QD-TID PRN loratadine (Allergy Relief (loratadine)) 10 mg PO DAILY metoprolol tartrate 25 mg PO BID mirabegron ER (Myrbetriq) 25 mg PO DAILY omeprazole 20 mg PO DAILY pregabalin 75 mg PO DAILY pregabalin 100 mg PO BEDTIME propylene glycol 0.6% (Systane Balance) 1 drp ophthalmic (eye) DAILY PRN psyllium seed (sugar) (Metamucil (sugar) oral powder) 1 tbsp PO DAILY sennosides (Natural Senna Laxative) 17.2 mg PO BEDTIME witch soni 50% (Hemorrhoidal Hygiene) pad topical HPI HPI r/s 08/06/23 5 mos followup: Details: Jeannine is an 88-year-old female with past medical history of obesity, hyperlipidemia, diabetes who was being evaluated for shortness of breath and now presents for follow-up. Today she reports that she continues to have shortness of breath with activity. She feels this symptom has increased since her last visit in February. Her daughter is present and states that her mother complains about this a lot. She has some discomfort in her left upper chest which is worsened by raising her left arm. She has limited range of motion of her left shoulder. She denies exertional chest discomfort. She is mostly sedentary. No PND, orthopnea or edema. No palpitations, presyncope, syncope, falls. Ambulates with a walker. Takes meds as directed. Daughter assists with Uzbek translation at their request. Permit signed.. [facility] Medical History Prolapsed hemorrhoids Carpal tunnel syndrome Elevated cholesterol Osteoarthritis Osteoporosis Fibromyalgia Chronic renal insufficiency Diabetes GERD (gastroesophageal reflux disease) Hypothyroid Polymyalgia rheumatica Surgical History S/P carpal tunnel release Hx of rotator cuff surgery Hx of vein stripping History of esophagogastroduodenoscopy (EGD) H/O colonoscopy Hx of hysterectomy History of hip surgery History of back surgery Hx of tubal ligation Family History Mother HTN (hypertension) Father Alzheimer disease Social History Household Members: Spouse and Children Housing: House Alcohol intake: former Patient Tobacco Use Status: Never used Tobacco Advance Directives Date on File: 02/10/20 Current occupational status: 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 Review of Systems Const All systems reviewed & are unremarkable except as noted in HPI and below ENT Denies dizziness Card Denies chest pain, Denies chest pain at rest, Denies chest pain with activity, Denies rapid heart rate, Denies pedal edema, Denies edema, Denies leg edema, Denies lightheadedness, Denies palpitations, Reports dyspnea, Reports dyspnea on exertion and Denies orthopnea Resp Denies cough, Reports dyspnea and Reports dyspnea on exertion GI Denies hematochezia and Denies change in stool character Musc Details: Uses walker Reports abnormal gait, Denies limited range of motion, Denies muscle cramps, Denies muscle weakness, Denies numbness, Denies radiating pain into limb, Denies stiffness and Denies tingling Neuro Reports abnormal gait, Denies dizziness, Denies numbness and Denies tingling Endo Denies palpitations Physical Exam Vital Signs: Last Vital Signs Pulse 68 08/29/23 14:33 BP 134/72 08/29/23 14:33 BMI result Body Mass Index 33.1 Const General: cooperative, healthy appearing, comfortable and no acute distress Orientation/consciousness: patient oriented x3 Neck Neck: Yes normal visual inspection Resp Effort & Inspection: normal respiratory effort Auscultation: clear to auscultation bilaterally, no crackles, no rales, no rhonchi and no wheezes Cardio Jugular venous distension: no JVD Rate: regular rate Rhythm: regular rhythm Heart sounds: S1 normal heart sound present, S2 normal heart sound present, no murmurs and no rubs Neuro General: patient oriented x3 Extrem General: Yes normal to inspection Psych Appearance: grossly normal Mental Status: mental status grossly normal Speech and movement: Normal speech and movement present Assessment & Plan Assessment & Plan (1) SOB (shortness of breath): Code(s): R06.02 - Shortness of breath Category: Medical Plan: Patient has reports of shortness of breath with activity. A Holter monitor previously done for feeling of heart racing showed sinus rhythm with average heart rate 96, SVE 1.7% of time. EKG done 10/03/2022 showed normal sinus rhythm, no acute ST or T-wave abnormalities, rate 70. Echocardiogram done 10/25/2022 showing EF 60-65%, impaired relaxation, mild MR, normal RV, no pulmonary hypertension. A chest x-ray was done following last visit showing no active disease, volume somewhat diminished. Cardiac risk factors of obesity, age, diabetes, hyperlipidemia. Today she reports that her breathing has been more bothersome over the last 6 months. She does not have shortness of breath at rest, only with activities. She is mostly sedentary. She has atypical left upper chest discomfort which could be musculoskeletal in nature. Discussed options for evaluation and treatment. Informed that her symptom may be related to deconditioning, obesity. She also may have some coronary artery disease contributing to her shortness of breath and less likely the chest discomfort. Offered conservative care versus pursuing nuclear stress test. Patient wants to have pharmacological nuclear stress test to evaluate for CAD. She will not be able to go on a treadmill as she ambulates with a walker. At her age she most likely has some degree of CAD. Will have her continue on current meds including hydralazine and metoprolol for blood pressure and heart rate control. She is on high-dose atorvastatin. Signs and symptoms of angina reviewed. Cardiology follow-up in 4 weeks, sooner if needed. (2) Chest discomfort: Code(s): R07.89 - Other chest pain Category: Medical Plan: As above Plan Time spent on chart review, documentation, interview and assessment Orders: Orders CA lexiscan stress w lisa Today R06.02 - Shortness of breath, R07.89 - Other chest pain NM cardiolite stress test Today R06.02 - Shortness of breath, R07.89 - Other chest pain Coding Level of Care Code Est Pt Level 4 (23461) Diagnoses SOB (shortness of breath) R06.02 Chest discomfort R07.89 Time Spent (min) 28
== END 2023-08-29 15:09 | disposition home or self-care (01) ==
PROVIDERS: PCP Family Medicine; Visit Provider Nurse Practitioner Family
DX: R06.02 Shortness of breath (principal); R07.89 Other chest pain
CPT/HCPCS: 99214

== ENCOUNTER → 2023-08-29 14:30 | Outpatient (BNVA) | payer OTHER, SELFPAY | PROVIDERS: PCP Family Medicine; Visit Provider Nurse Practitioner Family | DX: R06.02 Shortness of breath (principal); R07.89 Other chest pain | CPT/HCPCS: 99212 ==

== ENCOUNTER → 2023-11-15 09:20 | Outpatient (REF) | payer OTHER, SELFPAY ==
--- NOTE | ~2023-11-15 | NM_ITS ---
Myocardial perfusion study Indication: Shortness of breath evaluate for myocardial ischemia Technique: The patient was brought in for a Lexiscan perfusion study on 11/15/2023. Patient performed low-level exercise and was injected 0.4 mg of Lexiscan intravenously. Within a minute of injection, 25 mCi of sestamibi was given intravenously. Images were obtained using the SPECT gamma camera interlaced with the gating device. Images were obtained in supine position. Resting perfusion study was performed on 11/18/2023. Patient was administered 25 mCi of sestamibi intravenously at rest. Images were then obtained in supine position. Images obtained with and without CT attenuation. Total DLP 169 mGy-cm. Images were processed with the software and compared side to side in short axis, horizontal long axis and vertical long axis views. Findings: The stress perfusion study showed non attenuated images show moderately reduced uptake in the apex of the myocardium. Remainder of the LV myocardium is normally perfused. Attenuation corrected images show moderately reduced uptake in the apex of the LV myocardium. The gated study shows normal LV systolic function with calculated LVEF of 70%. LV cavity is normal size. The gated study shows normal systolic wall thickening and contraction of segments. Resting study shows both attenuated as well as non attenuated corrected images show normal uptake of radiotracer in all segments of LV myocardium. Gating at rest reveals normal systolic wall motion with ejection fraction at 73%. The findings are consistent with small size moderate intensity reversible defect of the apex suggestive of ischemia. NM/NM cardiolite stress test Impression: 1. Myocardial perfusion imaging study shows moderate intensity apical ischemia 2. Gated LVEF is 70% 3. Transient ischemic dilatation not present EKG is nondiagnostic for ischemia
--- NOTE | 2023-11-15 09:26 | CA_ITS ---
Acquisition Time: 2023-11-15 09:36:40 Total Exercise Time: 00:02:00 Test Indications: R06.02 - Shortness of breath Medications: Protocol: LEXISCAN Max HR: 095 BPM 72% of Pred: 131 BPM Max BP: 144/062 mmHG Max Work Load: 1.0 METS Pharmacological stress test with Lexiscan injection while sitting and kicking her legs, without anginal symptoms, with isolated PACs, with normotensive response to injection, with downsloping in leads 2, 3, aVF, V4-V6, Aminophyllien 75mg IVP given to reverse Lexiscan. Nuclear images pending. Test reviewed with Dr. Melgar Referred By: Shandra Frost Overread By: Lois Danielle
== END ==
LOC: HO.CARD 09:20
PROVIDERS: PCP Family Medicine; Visit Provider Nurse Practitioner Family
DX: R07.89 Other chest pain (principal); R06.02 Shortness of breath
CPT/HCPCS: 78452; 93017; A9500; J0280; J2785

== ENCOUNTER → 2023-11-15 09:26 | Outpatient (BNV) | payer OTHER, SELFPAY | PROVIDERS: PCP Family Medicine; Visit Provider Nurse Practitioner | DX: R06.02 Shortness of breath (principal) | CPT/HCPCS: 78452; 93016; 93018 ==

== ENCOUNTER 2023-11-21 15:19 | Outpatient (AMB) | payer OTHER, SELFPAY ==
[2023-11-21 15:21] VITALS: BP 104/52; PULSE 60; BMI 32.9
--- NOTE | 2023-11-21 15:21 | MHC.OFFVIS ---
Vital Signs 11/21/23 15:21 Height 5 ft 1 in Weight 174 lb 2.643 oz BMI 32.9 BP 104/52 L Blood Pressure Location Lt brachial Position Sitting Pulse 60 Pulse Source Pulse Oximeter Intake Visit Reasons: f/u after testing Plate Straightener Required: No Digital Marketing Strategist: Digital Marketing Strategist Present Allergies No Known Allergies [No Known Allergies*] Allergy (Verified 11/21/23 15:24) Medication List - Last Reconciled 11/21/23 by VADIM Auguste acetaminophen (Tylenol) 650 mg PO Q4H PRN amitriptyline 10 mg PO BEDTIME ascorbic acid (vitamin C) (Vitamin C) 500 mg PO BID atorvastatin (Lipitor) 80 mg PO DAILY baclofen 5 mg (1/2 x 10 mg) PO BID calcium carbonate-vitamin D3 600 mg-10 mcg (400 unit) 1 tab PO BID cholecalciferol (vitamin D3) (Vitamin D3) 25 mcg PO DAILY citalopram 20 mg PO DAILY conjugated estrogens (Premarin) 0.625 mg vaginal 2XW cranberry extract 300 mg PO DAILY cyanocobalamin (vitamin B-12) 1,000 mcg PO DAILY denosumab (Prolia) 60 mg subcut [id number] diclofenac sodium 1% (Voltaren) 4 grams topical QID PRN docusate sodium 100 mg PO BID dulaglutide (Trulicity) 0.75 mg subcut QWEEK ferrous sulfate 325 mg PO DAILY fluticasone propionate 220 mcg/actuation 1 puff inhalation BID glucosamine HCl 1,500 mg PO DAILY hydralazine 37.5 mg PO BID hydrocortisone acetate (Anucort-HC) 25 mg [place] BID PRN levothyroxine 112 mcg PO QAM lidocaine 4% 1 appl topical QD-TID PRN loratadine (Allergy Relief (loratadine)) 10 mg PO DAILY metoprolol tartrate 25 mg PO BID mirabegron ER (Myrbetriq) 25 mg PO DAILY omeprazole 20 mg PO DAILY pregabalin 75 mg PO DAILY pregabalin 100 mg PO BEDTIME propylene glycol 0.6% (Systane Balance) 1 drp ophthalmic (eye) DAILY PRN psyllium seed (sugar) (Metamucil (sugar) oral powder) 1 tbsp PO DAILY sennosides (Natural Senna Laxative) 17.2 mg PO BEDTIME witch soni 50% (Hemorrhoidal Hygiene) pad topical HPI HPI f/u after testing: Details: Jeannine is an 88-year-old female with past medical history of obesity, hyperlipidemia, diabetes recently underwent underwent a pharmacological nuclear stress test and now presents for follow-up Today she reports that she continues to have shortness of breath with activities. She also describes that her chest feels anxious and uncomfortable on the inside during activity. She is not noticing the symptoms at rest. Her symptom has increased since last fall. Her daughter is present and states that her mother complains about this a lot. She has some discomfort in her left upper chest which is worsened by raising her left arm. This is different than the anxious feeling. She is mostly sedentary and ambulates around the house with a walker. No PND, orthopnea or edema. No palpitations, presyncope, syncope, falls. Takes meds as directed. Daughter assists with Ukrainian translation at their request. Permit signed. [facility] Medical History Prolapsed hemorrhoids Carpal tunnel syndrome Elevated cholesterol Osteoarthritis Osteoporosis Fibromyalgia Chronic renal insufficiency Diabetes GERD (gastroesophageal reflux disease) Hypothyroid Polymyalgia rheumatica Surgical History S/P carpal tunnel release Hx of rotator cuff surgery Hx of vein stripping History of esophagogastroduodenoscopy (EGD) H/O colonoscopy Hx of hysterectomy History of hip surgery History of back surgery Hx of tubal ligation Family History Mother HTN (hypertension) Father Alzheimer disease Social History Household Members: Spouse and Children Housing: House Alcohol intake: former Patient Tobacco Use Status: Never used Tobacco Advance Directives Date on File: 02/10/20 Current occupational status: 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 All systems reviewed & are unremarkable except as noted in HPI and below ENT Denies dizziness Card Details: uncomfortable feeling in chest Denies chest pain, Denies chest pain at rest, Denies chest pain with activity, Denies rapid heart rate, Denies pedal edema, Denies edema, Denies leg edema, Denies lightheadedness, Denies palpitations, Denies dyspnea, Reports dyspnea on exertion and Denies orthopnea Resp Denies cough, Denies dyspnea and Reports dyspnea on exertion GI Denies hematochezia and Denies change in stool character Musc Details: uses walker Denies abnormal gait, Denies limited range of motion, Denies muscle cramps, Denies muscle weakness, Denies numbness, Denies radiating pain into limb, Denies stiffness and Denies tingling Neuro Denies abnormal gait, Denies dizziness, Denies numbness and Denies tingling Endo Denies palpitations Physical Exam Vital Signs: Last Vital Signs Pulse 60 11/21/23 15:21 BP 104/52 L 11/21/23 15:21 BMI result Body Mass Index 32.9 Const General: cooperative, healthy appearing, comfortable and no acute distress Orientation/consciousness: patient oriented x3 Neck Neck: Yes normal visual inspection and Yes no JVD Resp Effort & Inspection: normal respiratory effort Auscultation: clear to auscultation bilaterally, no rales, no rhonchi and no wheezes Cardio Jugular venous distension: no JVD Rate: regular rate Rhythm: regular rhythm Heart sounds: S1 normal heart sound present, S2 normal heart sound present, no murmurs and no rubs Neuro General: patient oriented x3 Extrem General: Yes normal to inspection and No no pedal edema Psych Appearance: grossly normal Mental Status: mental status grossly normal Speech and movement: Normal speech and movement present Assessment & Plan Assessment & Plan (1) SOB (shortness of breath): Code(s): R06.02 - Shortness of breath Category: Medical Plan: Patient has reports of shortness of breath and agitation feeling in chest with activity, that has worsened over time. Cardiac risk factors of obesity, age, diabetes, hyperlipidemia. A Holter monitor 07/30/22 done for feeling of heart racing showed sinus rhythm with average heart rate 96, SVE 1.7% of time. Echocardiogram done 10/25/2022 showing EF 60-65%, impaired relaxation, mild MR, normal RV, no pulmonary hypertension. Nuclear stress test done 11/18/23 for ongoing reports of symptoms, showed moderate intensity apical ischemia, EF 70%. Today she reports that she continues to have symptoms during activities. She does not have symptoms at rest. Test results reviewed with her and informed of probable ischemia. Blood pressure 104/52, pulse rate 60. Unable to further titrate medications. She is on metoprolol and hydralazine. Unknown at present if she had been on other antihypertensive agents in the past. Will continue with these medications. Will continue high-dose atorvastatin. Will add aspirin 81 mg daily. Discussed possible cardiac catheterization and coronary stent placement. Risks of the procedure reviewed including infection, bleeding, PEEWEE, CA, stroke. Patient is very willing to proceed. She states anything that can help her heart she will do. Will arrange for left heart catheterization, question PCI. She is known to have normal kidney function. No contrast dye allergy noted. Cardiology follow-up 2 weeks post procedure. Emergency care if needed for symptoms. (2) Chest discomfort: Code(s): R07.89 - Other chest pain Category: Medical Plan: As above (3) Abnormal nuclear stress test: Code(s): R94.39 - Abnormal result of other cardiovascular function study Category: Medical Plan: As above Plan Time spent on chart review, documentation, interview and assessment Orders: Orders Prothrombin Time INR Today R94.39 - Abnormal result of other cardiovascular function study Complete Blood Count Auto Diff Today R06.02 - Shortness of breath, R07.89 - Other chest pain, R94.39 - Abnormal result of other cardiovascular function study Cardiac Cath LT w PCI Today R06.02 - Shortness of breath, R07.89 - Other chest pain, R94.39 - Abnormal result of other cardiovascular function study Basic Metabolic Panel Today R06.02 - Shortness of breath, R07.89 - Other chest pain, R94.39 - Abnormal result of other cardiovascular function study Medications: New aspirin 81 mg PO DAILY 90 tabs 1RF Coding Level of Care Code Est Pt Level 4 (09730) Diagnoses SOB (shortness of breath) R06.02 Chest discomfort R07.89 Abnormal nuclear stress test R94.39 Time Spent (min) 36
== END 2023-11-21 15:51 | disposition home or self-care (01) ==
PROVIDERS: PCP Family Medicine; Visit Provider Nurse Practitioner Family
DX: R06.02 Shortness of breath (principal); R07.89 Other chest pain; R94.39 Abnormal result of other cardiovascular function study
CPT/HCPCS: 99214

== ENCOUNTER → 2023-11-21 15:19 | Outpatient (BNVA) | payer OTHER, SELFPAY | PROVIDERS: PCP Family Medicine; Visit Provider Nurse Practitioner Family | DX: R06.02 Shortness of breath (principal); R07.89 Other chest pain; R94.39 Abnormal result of other cardiovascular function study | CPT/HCPCS: 99212 ==

== ENCOUNTER 2023-12-09 13:45 | Outpatient (REF) | payer OTHER, SELFPAY ==
[2023-12-09 13:55] LABS: MANUAL DIFF FLAG NO
[2023-12-09 14:50] LABS: Basophils Percent Auto 0.4 % (0-2); Eosinophils Absolute Auto 0.2 X10*3/uL (0.0-0.4); Eosinophils Percent Auto 2.8 % (0-4); Imm Gran Abs Auto 0.04 X10*3/uL (0.00-0.03); Imm Gran Pct Auto 0.5 % (0.0-0.4); Lymphocytes Absolute Auto 2.5 X10*3/uL (1.2-4.9); Lymphocytes Percent Auto 30.2 % (20-40); Mean Corpuscular HGB Conc 31.6 g/dl (31.0-35.0); Mean Corpuscular Hemoglobin 31.2 pg (27.0-33.0); Mean Corpuscular Volume 98.7 fL (80.0-98.0); Mean Platelet Volume 11.6 fL (9.4-12.3); Monocytes Percent Auto 11.9 % (2-11); Neutrophils Absolute Auto 4.5 x10*3/uL (2.0-8.3); Neutrophils Percent Auto 54.2 % (45-73); Platelet Count 230 X10*3/uL (160-400); Red Blood Count 3.85 X10*6/uL (4.20-5.50); White Blood Count 8.2 X10*3/uL (4.8-10.8)
[2023-12-09 14:55] LABS: INTERNATIONAL NORM RATIO 0.8 (0.9-1.1); Prothrombin Time 10.2 SEC (11.1-13.3)
[2023-12-09 15:45] LABS: Anion Gap 17 (12-20); Blood Urea Nitrogen 26 mg/dL (9-16); Calcium 9.8 mg/dL (8.4-10.2); Carbon Dioxide 22 mmol/L (22-29); Chloride 109 mmol/L (96-108); Estimated Glomerular Filt Rate 42; Glucose Random 81 mg/dL (60-115); Potassium 4.9 mmol/L (3.3-5.1); Sodium 143 mmol/L (135-145)
== END 2023-12-09 13:46 | disposition home or self-care (01) ==
LOC: HO.LAB 13:45
PROVIDERS: PCP Family Medicine; Visit Provider Nurse Practitioner Family
DX: R06.02 Shortness of breath (principal); R07.89 Other chest pain; R94.39 Abnormal result of other cardiovascular function study
CPT/HCPCS: 36415; 80048; 85025; 85610

== ENCOUNTER → 2023-12-10 23:59 | Outpatient (BNV) | payer OTHER, SELFPAY | PROVIDERS: PCP Family Medicine; Visit Provider Internal Medicine Cardiovascular Disease | DX: R93.1 Abnormal findings on diagnostic imaging of heart and coronary circulation (principal); I20.89 Other forms of angina pectoris | CPT/HCPCS: 92920; 93458; 99152 ==

== ENCOUNTER 2023-12-25 15:57 | Outpatient (REF) | payer OTHER, SELFPAY ==
[2023-12-25 16:16] LABS: MANUAL DIFF FLAG NO
[2023-12-25 18:24] LABS: Basophils Percent Auto 0.6 % (0-2); Eosinophils Absolute Auto 0.3 X10*3/uL (0.0-0.4); Hematocrit 35.4 % (37.0-47.0); Hemoglobin 11.5 g/dl (12.0-16.0); Imm Gran Abs Auto 0.04 X10*3/uL (0.00-0.03); Imm Gran Pct Auto 0.6 % (0.0-0.4); Lymphocytes Absolute Auto 1.9 X10*3/uL (1.2-4.9); Lymphocytes Percent Auto 26.4 % (20-40); Mean Corpuscular HGB Conc 32.5 g/dl (31.0-35.0); Mean Corpuscular Hemoglobin 31.7 pg (27.0-33.0); Mean Corpuscular Volume 97.5 fL (80.0-98.0); Mean Platelet Volume 11.5 fL (9.4-12.3); Monocytes Absolute Auto 0.7 X10*3/uL (0.1-1.2); Neutrophils Absolute Auto 4.1 x10*3/uL (2.0-8.3); Neutrophils Percent Auto 58.4 % (45-73); Platelet Count 234 X10*3/uL (160-400); Red Blood Count 3.63 X10*6/uL (4.20-5.50); White Blood Count 7.1 X10*3/uL (4.8-10.8)
[2023-12-25 18:53] LABS: Alanine Aminotransferase 18 U/L (0-31); Albumin Level 4.1 g/dL (3.5-5.0); Alkaline Phosphatase 57 U/L (39-117); Anion Gap 15 (12-20); Aspartate Amino Transferase 15 U/L (5-31); Bilirubin Total 0.2 mg/dL (0.0-1.0); Blood Urea Nitrogen 45 mg/dL (9-16); Calcium 9.6 mg/dL (8.4-10.2); Carbon Dioxide 22 mmol/L (22-29); Chloride 110 mmol/L (96-108); Cholesterol 104 mg/dL (<200); Estimated Glomerular Filt Rate 32; Glucose Random 120 mg/dL (60-115); HDL Cholesterol 31 mg/dL (>40); LDL Cholesterol Calculated 33 mg/dL (<100); Potassium 4.7 mmol/L (3.3-5.1); Sodium 142 mmol/L (135-145); Total Protein 6.9 g/dL (6.5-8.0); Triglycerides 201 mg/dL (<150)
[2023-12-25 19:09] LABS: TSH reflex Free T4 4.58 uIU/mL (0.32-4.0); Vitamin D 25-OH Total 42.1 ng/mL (>30)
[2023-12-25 23:07] LABS: Reflex LDLD? No
[2023-12-25 23:08] LABS: Free T4 (Free Thyroxine) 0.88 ng/dL (0.71-1.85)
[2023-12-31 16:43] LABS: Vitamin D 25-OH, D2 <4 ng/mL; Vitamin D 25-OH, D3 33 ng/mL; Vitamin D 25-OH, Total 33 ng/mL (30-100)
== END 2023-12-25 15:58 | disposition home or self-care (01) ==
LOC: HO.LAB 15:57
PROVIDERS: PCP Family Medicine; Referring Provider Family Medicine; Visit Provider Student in an Organized Health Care Education/Training Program
DX: E11.65 Type 2 diabetes mellitus with hyperglycemia (principal); N18.32 Chronic kidney disease, stage 3b; I10 Essential (primary) hypertension; E03.9 Hypothyroidism, unspecified; E55.9 Vitamin D deficiency, unspecified; M85.859 Other specified disorders of bone density and structure, unspecified thigh
CPT/HCPCS: 36415; 80053; 80061; 82306; 84439; 84443; 85025

== ENCOUNTER 2023-12-27 15:58 | Outpatient (REF) | payer OTHER, SELFPAY ==
[2023-12-27 16:20] LABS: Appearance Urine Clear; Color Urine Yellow; Glucose Urine UA Negative (Negative); Leukocyte Esterase Urine Small (1+) (Negative); Nitrite Urine Negative (Negative); PH 5.5 (5.0-9.0); Specific Gravity - Urine 1.015 (1.005-1.025); UMIC TRIGGER UA YES; Urine Blood Negative (Negative); Urine Ketones Negative (Negative); Urine Protein Trace mg/dL (Neg-Trace)
[2023-12-27 16:22] LABS: Bacteria Urine 4+ (None Seen); Hyaline Casts Urine 0-2 /LPF (0-2); RBC Urine 0-2 /HPF (0-2); Squamous Epithelial Cell Urine 0-2 /HPF (0-2)
== END 2023-12-27 15:59 | disposition home or self-care (01) ==
LOC: HO.LNP 15:58
PROVIDERS: Visit Provider Family Medicine
DX: R35.0 Frequency of micturition (principal); R41.89 Other symptoms and signs involving cognitive functions and awareness; R46.89 Other symptoms and signs involving appearance and behavior; R82.79 Other abnormal findings on microbiological examination of urine
CPT/HCPCS: 81001; 87086; 87088; 87186

== ENCOUNTER 2024-01-02 15:16 | Outpatient (AMB) | payer OTHER, SELFPAY ==
--- NOTE | 2024-01-02 15:20 | MHC.OFFVIS ---
Vital Signs 01/02/24 15:21 Height 5 ft 1 in Weight 173 lb 4.533 oz BMI 32.7 BP 100/52 L Blood Pressure Location Lt brachial Position Sitting Pulse 72 Pulse Source Pulse Oximeter Intake Visit Reasons: 2 wk follow up/ cardiac cath Jacquard Plate Maker Required: No Legal Executive Assistant: Legal Executive Assistant Present Allergies No Known Allergies [No Known Allergies*] Allergy (Verified 01/02/24 15:23) Medication List - Last Reconciled 01/02/24 by VADIM Auguste acetaminophen (Tylenol) 650 mg PO Q4H PRN amitriptyline 10 mg PO BEDTIME ascorbic acid (vitamin C) (Vitamin C) 500 mg PO BID aspirin 81 mg PO DAILY atorvastatin (Lipitor) 80 mg PO DAILY baclofen 5 mg (1/2 x 10 mg) PO BID calcium carbonate-vitamin D3 600 mg-10 mcg (400 unit) 1 tab PO BID cefpodoxime 100 mg PO BID cholecalciferol (vitamin D3) (Vitamin D3) 25 mcg PO QAM citalopram 20 mg PO DAILY conjugated estrogens (Premarin) 0.625 mg vaginal 2XW cranberry extract 300 mg PO DAILY cyanocobalamin (vitamin B-12) 1,000 mcg PO DAILY denosumab (Prolia) INJECT 60MG SUBCUTANEOUSLY EVERY 6 MONTHS diclofenac sodium 1% (Voltaren) 4 grams topical QID PRN docusate sodium 100 mg PO BID dulaglutide (Trulicity) 0.75 mg subcut QWEEK ferrous sulfate 325 mg PO DAILY fluticasone propionate 220 mcg/actuation 1 puff inhalation BID glucosamine HCl 1,500 mg PO DAILY hydralazine 37.5 mg PO BID hydrocortisone acetate (Anucort-HC) 25 mg TX BID PRN levothyroxine 112 mcg PO QAM lidocaine 4% 1 appl topical QD-TID PRN loratadine (Allergy Relief (loratadine)) 10 mg PO DAILY metoprolol tartrate 25 mg PO BID mirabegron ER (Myrbetriq) 25 mg PO DAILY omeprazole 20 mg PO DAILY pregabalin 75 mg PO DAILY pregabalin 100 mg PO BEDTIME propylene glycol 0.6% (Systane Balance) 1 drp ophthalmic (eye) DAILY PRN psyllium seed (sugar) (Metamucil (sugar) oral powder) 1 tbsp PO DAILY sennosides (Natural Senna Laxative) 17.2 mg PO BEDTIME witch soni 50% (Hemorrhoidal Hygiene) pad topical HPI HPI 2 wk follow up/ cardiac cath: Details: Jeannine is an 88-year-old female with past medical history of obesity, hyperlipidemia, diabetes, chest discomfort with abnormal nuclear stress test who recently had cardiac catheterization showing 99% mid LAD stenosis and angioplasty was done. She now presents for follow-up.. Today she reports that her chest discomfort has resolved. She continues to have shortness of breath with activities and an anxious feeling in her chest at times. No PND, orthopnea or edema. No lightheadedness, presyncope, syncope, falls. Mostly sedentary. Ambulates with a walker. Right radial catheterization site is feeling good. No bleeding issues reported. Takes meds as directed. Daughter assists with Yakut translation at their request. Permit signed [facility] Medical History Prolapsed hemorrhoids Carpal tunnel syndrome Elevated cholesterol Osteoarthritis Osteoporosis Fibromyalgia Chronic renal insufficiency Diabetes GERD (gastroesophageal reflux disease) Hypothyroid Polymyalgia rheumatica Surgical History S/P carpal tunnel release Hx of rotator cuff surgery Hx of vein stripping History of esophagogastroduodenoscopy (EGD) H/O colonoscopy Hx of hysterectomy History of hip surgery History of back surgery Hx of tubal ligation Family History Mother HTN (hypertension) Father Alzheimer disease Social History Household Members: Spouse and Children Housing: House Alcohol intake: former Patient Tobacco Use Status: Never used Tobacco Advance Directives Date on File: 02/10/20 Current occupational status: 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 Review of Systems Const All systems reviewed & are unremarkable except as noted in HPI and below ENT Denies dizziness Card Denies chest pain, Denies chest pain at rest, Denies chest pain with activity, Denies rapid heart rate, Denies pedal edema, Denies edema, Denies leg edema, Denies lightheadedness, Denies palpitations, Denies dyspnea, Reports dyspnea on exertion and Denies orthopnea Resp Denies cough, Denies dyspnea and Reports dyspnea on exertion GI Denies hematochezia and Denies change in stool character Musc Reports abnormal gait (uses walker), Reports limited range of motion, Denies muscle cramps, Denies muscle weakness, Denies numbness, Denies radiating pain into limb, Denies stiffness and Denies tingling Neuro Reports abnormal gait (uses walker), Denies dizziness, Denies numbness and Denies tingling Endo Denies palpitations Physical Exam Vital Signs: Last Vital Signs Pulse 72 01/02/24 15:21 BP 100/52 L 01/02/24 15:21 BMI result Body Mass Index 32.7 Const General: cooperative, healthy appearing, comfortable and no acute distress Orientation/consciousness: patient oriented x3 Neck Neck: Yes normal visual inspection and Yes no JVD Resp Effort & Inspection: normal respiratory effort Auscultation: clear to auscultation bilaterally, no rales, no rhonchi and no wheezes Cardio Jugular venous distension: no JVD Rate: regular rate Rhythm: regular rhythm Heart sounds: S1 normal heart sound present, S2 normal heart sound present, no murmurs and no rubs Neuro General: patient oriented x3 Extrem General: Yes normal to inspection and No no pedal edema Psych Appearance: grossly normal Mental Status: mental status grossly normal Speech and movement: Normal speech and movement present Assessment & Plan Assessment & Plan (1) SOB (shortness of breath): Code(s): R06.02 - Shortness of breath Category: Medical Plan: Patient has reports of shortness of breath and agitation feeling and discomfort in chest with activity, that has worsened over time. Cardiac risk factors of obesity, age, diabetes, hyperlipidemia. A Holter monitor 07/30/22 done for feeling of heart racing showed sinus rhythm with average heart rate 96, SVE 1.7% of time. Echocardiogram done 10/25/2022 showing EF 60-65%, impaired relaxation, mild MR, normal RV, no pulmonary hypertension. Nuclear stress test done 11/18/23 for ongoing reports of symptoms, showed moderate intensity apical ischemia, EF 70%. She underwent cardiac catheterization on 12/10/2023 which showed mid LAD 99% stenosis, angioplasty was performed and stenosis reduced to 1%, vessel was not stented. She was continued on aspirin and started on ticagrelor 90 mg b.i.d.. Today she reports that her chest discomfort has resolved. She continues to have issues with shortness of breath and an agitated feeling in her chest with physical activity. This symptom is most likely noncardiac and can be respiratory related. She denies any known history of asthma, COPD. Instructed to further discuss symptoms with her primary care provider. She was offered cardiac rehab and she declines. Will have her continue on aspirin indefinitely, ticagrelor uninterrupted for at least 1 year. Continue metoprolol and hydralazine. Blood pressure is well controlled. Continue high-dose atorvastatin with LDL goal less than 70. Labs done 12/25/2023 showed LDL 33. Cardiology follow-up 3 months, sooner if needed. Emergency care if ever needed for symptoms. (2) S/P cardiac cath: Comment: 12/10/2023, left main normal, lad mid 99% stenosis, angioplasty done and reduced to 1%, no stent, left circumflex and RCA mild irregularities Code(s): Z98.890 - Other specified postprocedural states Category: Surgical Plan: As above. Right radial catheterization site is well healed (3) Chest discomfort: Code(s): R07.89 - Other chest pain Category: Medical Plan: As above -resolved post angioplasty. Still has shortness of breath and an agitated feeling in chest. (4) Abnormal nuclear stress test: Code(s): R94.39 - Abnormal result of other cardiovascular function study Category: Medical Plan: As above Plan Time spent on chart review, documentation, interview and assessment Coding Level of Care Code Est Pt Level 4 (52803) Diagnoses SOB (shortness of breath) R06.02 S/P cardiac cath Z98.890 Chest discomfort R07.89 Abnormal nuclear stress test R94.39 Time Spent (min) 28
[2024-01-02 15:21] VITALS: BP 100/52; PULSE 72; BMI 32.7
== END 2024-01-02 15:50 | disposition home or self-care (01) ==
PROVIDERS: PCP Family Medicine; Visit Provider Nurse Practitioner Family
DX: R06.02 Shortness of breath (principal); Z98.890 Other specified postprocedural states; R07.89 Other chest pain; R94.39 Abnormal result of other cardiovascular function study
CPT/HCPCS: 99214

== ENCOUNTER → 2024-01-02 15:16 | Outpatient (BNVA) | payer OTHER, SELFPAY | PROVIDERS: PCP Family Medicine; Visit Provider Nurse Practitioner Family | DX: R06.02 Shortness of breath (principal); R07.89 Other chest pain; R94.39 Abnormal result of other cardiovascular function study; Z98.890 Other specified postprocedural states | CPT/HCPCS: 99212 ==

== ENCOUNTER 2024-01-06 15:03 | Outpatient (AMB) | payer OTHER, SELFPAY ==
--- NOTE | 2024-01-06 15:18 | AM.OFFVISNUR ---
Intake Visit Reasons: prolia Allergies No Known Allergies [No Known Allergies*] Allergy (Verified 01/02/24 15:23) Office Meds Prolia 60 mg/mL subcutaneous syringe Performing Provider: Estefani Fernández MD [place] [facility] [place] [facility] Administered by: Gretchen Aburto RN on 01/06/24 15:18 Dose Route Admin Location Dispensed Lot Number Expiration Date ND Pull Up Hand 60 mg subcut right upper arm 1 mL [id number] 09/26/25 10093-595-74 [facility] Comments: Visit interpreted by Tessa Pérez LMT. Pt tolerated injection well. Consent form signed. Pt denies any reactions or adverse effects with previous injectins. Assessment & Plan Assessment & Plan Orders: Orders AMB Denosumab Injection Patient Supplied Today M81.0 - Age-related osteoporosis without current pathological fracture Medications: New Prolia (denosumab) 60 mg subcut ONCE 1 mL 0RF NS M81.0 - Age-related osteoporosis without current pathological fracture
== END 2024-01-06 15:09 | disposition home or self-care (01) ==
PROVIDERS: PCP Family Medicine; Visit Provider Student in an Organized Health Care Education/Training Program
DX: M81.0 Age-related osteoporosis without current pathological fracture (principal)

== ENCOUNTER → 2024-01-06 15:03 | Outpatient (BNVA) | payer OTHER, SELFPAY | PROVIDERS: PCP Family Medicine; Visit Provider Student in an Organized Health Care Education/Training Program | DX: M81.0 Age-related osteoporosis without current pathological fracture (principal) | CPT/HCPCS: 96372; J0897 ==

== ENCOUNTER 2024-03-11 16:08 | Outpatient (REF) | payer OTHER, SELFPAY ==
[2024-03-11 17:34] LABS: Anion Gap 13 (12-20); Blood Urea Nitrogen 26 mg/dL (9-16); Calcium 9.5 mg/dL (8.4-10.2); Carbon Dioxide 21 mmol/L (22-29); Chloride 110 mmol/L (96-108); Estimated Glomerular Filt Rate 42; Glucose Random 119 mg/dL (60-115); Potassium 4.8 mmol/L (3.3-5.1); Sodium 139 mmol/L (135-145)
[2024-03-11 17:54] LABS: Free T4 (Free Thyroxine) 1.04 ng/dL (0.71-1.85); Thyroid Stimulating Hormone 2.04 uIU/mL (0.32-4.0)
== END 2024-03-11 16:09 | disposition home or self-care (01) ==
LOC: HO.LAB 16:08
PROVIDERS: PCP Family Medicine; Visit Provider Family Medicine
DX: M81.0 Age-related osteoporosis without current pathological fracture (principal); E03.9 Hypothyroidism, unspecified
CPT/HCPCS: 36415; 80048; 84439; 84443

== ENCOUNTER 2024-04-14 13:40 | Outpatient (REF) | payer OTHER, SELFPAY ==
--- OUTSIDE RECORDS SUMMARY | 2024-04-14 13:42 | XMS_ITS ---
Author Organization [facility] Address [address] [place] [address] Care Team Providers Care Medical Transport Specialist Name Role Phone Karmen LEVI, Deandra Primary Care Provider Otoniel Rascon Unavailable [phone] ALLERGIES No Known Allergies MEDICATIONS Medication SIG (Take, Route, Frequency, Duration) Notes Start Date End Date Status MiraLax Miralax powder take 1 capful in 8 ounces of water Orally QD-BID for constipation for 30 days 05/29/2011 Active Omeprazole 20 MG 1 Orally Twice a day for 30 day(s) 08/20/2022 Active glipiZIDE 5 MG 1 tablet 30 minutes before breakfast Orally BID Active Senna 8.6 MG as directed Orally O nce a day Active Omeprazole 20 MG 1 Orally Twice a day for 30 day(s) 09/17/2021 Active Trunature Digestive Probiotic Active Glucosamine Chondr 1500 Complx - as directed Orally Active Lyrica 75 MG 1 capsule Orally Twi ce a day Active amLODIPine Besy-Benazepril HCl 2.5-10 MG as directed Orally Active Levothyroxine Sodium 100 MCG 1 tablet in the morning on an empty stomach Orally Once a day Active Vitamin B 12 500 MCG 1 tablet Orally Onc e a day for 30 day(s) Active Ferrous Sulfate 75 (15 Fe) MG/ML as directed Orally Active Calcium 600 MG 1 tablet with meals Orally Twice a day for 30 day(s) Active Systane Ultra 0.4-0.3 % as directed Ophthalmic Active Vitamin E 200 UNIT 1 capsule Orally Onc e a day for 30 day(s) Active Fluticasone Furoate 50 MCG/ACT 1 puff Inhalation Once a day Active Baclofen 10 MG 1/2 tab Orally Twice a day Active Diclofenac &Methyl Mulugeta-Men-Cap 1.5&25-6-0.025 % as directed Externally Activ e Atorvastatin Calcium 80 MG 1 tablet Oral ly Once a day for 30 day(s) Active Amitriptyline HCl 25 MG 2 tablet at bedt jonathan Orally Once a day at bedtime Active Metoprolol Tartrate 25 MG 1 tablet with food Orally Twice a day for 30 day(s) Active Prolia 60 MG/ML as directed Subcutan eous every 6 months Active Monistat 7 Active Preparation H 0.25-88.44 % as directed Rectal Active Clotrimazole 10 MG 1 application Mouth/Throat five times a day Active Trulicity 0.75 MG/0.5ML as directed Subcutaneous Active Metoprolol Succinate 25 MG 1 capsule Ora lly twice a day Active Lidocaine 5 % 1 application as nee ded Externally Three times a day Active glipiZIDE ER 10 MG 1 tablet with breakf ast Orally twice a day Active SOCIAL HISTORY Sex Assigned At : Social History Observation Description Sex Assigned At Unknown Alcohol Screen Question Answer Notes Did you have a drink containing alcohol in the p ast year? No Points 0 Interpretation Negative PROBLEMS Problem Type ICD Code Onset Dates Problem Status W/U Status Risk SNOMED Code Notes Problem Rectal bleeding (K62.5) Active confirmed Rectal bleeding (93052861) Problem External hemorrhoids (K64.4) Active confirmed External hemorrhoids (82430956) Problem Rectal pain (K62.89) Active confirmed Rectal pain (42976340) VITAL SIGNS BMI 33.11 kg/m2 11/06/2023 Blood pressure systolic 000 mm Hg 11/06/19 24 Blood pressure diastolic 00 mm Hg 024 Height 61 in 11/06/2023 Temperature 97.5 degrees Fahrenheit 11/06/19 24 Weight 175 lb 4 oz lbs 11/06/2023 Encounters Encounter Location Date Provider Diagnosis [facility] [address] [place] [address] 11/06/2023 Otoniel Moya Rectal bleeding K62. 5 ; External hemorrhoids K64.4 and Rectal pain K62.89 ASSESSMENTS Encounter Date Diagnosis Assessment Notes Treatment Notes Treatment Clinical Notes 11/06/2023 Rectal bleeding (ICD-10 - K62.5) 11/06/2023 External hemorrhoids (ICD-10 - K64.4) Continue the 2 Senna pills every night and the Docusate stool softener twice a day to prevent constipation and to avoid straining with BM's Continue the preparation H or Anusol cream and/or suppository for the hemorrhoids as needed for swelling or bleeding. Use the Lidocaine cream as needed for the hemorrhoidal pain See Dr. Nelson if the hemorrhoids become more of a problem We will try to hold off on a colonoscopy due to her age, but call me if things change with more bleeding and we can always consider a colonoscopy if we have to 11/06/2023 Rectal pain (ICD-10 - K62.89) PLAN OF TREATMENT Treatment Notes Assessment Notes External hemorrhoids Continue the 2 Senna pills every night and the Docusate stool softener twice a day to prevent constipation and to avoid straining with BM's Continue the preparation H or Anusol cream and/or suppository for the hemorrhoids as needed for swelling or bleeding. Use the Lidocaine cream as needed for the hemorrhoidal pain See Dr. Nelson if the hemorrhoids become more of a problem We will try to hold off on a colonoscopy due to her age, but call me if things change with more bleeding and we can always consider a colonoscopy if we have to Next Appt Details Follow Up: prn, Reason: Progress Notes * Examination Category Sub-Category Detail Notes General Examination GENERAL APPEARANCE: pleasant , well nourished, well developed, in no acute distress EYES: sclera non-icteric NECK/THYROID: no cervical lymphade nopathy, neck supple HEART: S1, S2 normal LUNGS: clear to auscultatio n bilaterally ABDOMEN: normal bowel sounds, no guarding or rigidity, no hepatosplenomegaly, no masses palpable, soft, nontender, nondistended. NEUROLOGIC: alert and oriented SKIN: nonjaundiced, no spi maura angiomata. EXTREMITIES: no edema ORAL CAVITY: mucosa moist
--- OUTSIDE RECORDS SUMMARY | 2024-04-14 13:42 | XMS_ITS ---
Author Organization [facility] Address [address] [place] [address] Care Team Providers Care Tongue Carrier Name Role Phone Karmen LEVI, Deandra Primary Care Provider Otoniel Rascon [phone] REASON FOR VISIT script MEDICATIONS Medication SIG (Take, Route, Frequency, Duration) Notes Start Date End Date Status Lidocaine 5 % 1 application as nee ded Externally Three times a day as needed for rectal/hemorrhoidal discomfort for 30 days 11/07/2023 Active Encounters Encounter Location Date Provider Diagnosis [facility] [address] [place] [address] 11/07/2023 Otoniel Moya PLAN OF TREATMENT Medication Medication Name Sig Start Date Stop Date Notes Lidocaine 5 % 1 application as nee ded Externally Three times a day as needed for rectal/hemorrhoidal discomfort for 30 days 11/07/2023
--- OUTSIDE RECORDS SUMMARY | 2024-04-14 13:42 | XMS_ITS ---
Author Organization [facility] Address [address] [place] [address] Care Team Providers Care Tank Maker Wood Name Role Phone Karmen LEVI, Deandra Primary Care Provider Otoniel Rascon [phone] REASON FOR VISIT lidocaine not covered by ins. sohok on your desk Encounters Encounter Location Date Provider Diagnosis [facility] [address] [place] [address] 11/08/2023 Otoniel Moya PLAN OF TREATMENT No Information
--- OUTSIDE RECORDS SUMMARY | 2024-04-14 13:43 | XMS_ITS | Patient Health Record ---
Author Organization [facility] Address [address] [place] [address] Care Team Providers Care Social Studies Department Chair Name Role Phone Karmen LEVI, Deandra Primary Care Provider Otoniel Rascon Unavailable [phone] ALLERGIES No Known Allergies REASON FOR REFERRAL No Information MEDICATIONS Medication SIG (Take, Route, Frequency, Duration) Notes Start Date End Date Status Metoprolol Tartrate 25 MG 1 tablet with food Orally Twice a day for 30 day(s) Active MiraLax Miralax powder take 1 capful in 8 ounces of water Orally QD-BID for constipation for 30 days 05/29/2011 Active Prolia 60 MG/ML as directed Subcutan eous every 6 months Active Omeprazole 20 MG 1 Orally Twice a day for 30 day(s) 08/20/2022 Active glipiZIDE 5 MG 1 tablet 30 minutes before breakfast Orally BID Active Senna 8.6 MG as directed Orally O nce a day Active Monistat 7 Active Fluticasone Furoate 50 MCG/ACT 1 puff Inhalation Once a day Active Preparation H 0.25-88.44 % as directed Rectal Active Omeprazole 20 MG 1 Orally Twice a day for 30 day(s) 09/17/2021 Active Clotrimazole 10 MG 1 application Mouth/Throat five times a day Active Baclofen 10 MG 1/2 tab Orally Twice a day Active Diclofenac &Methyl Mulugeta-Men-Cap 1.5&25-6-0.025 % as directed Externally Activ e Atorvastatin Calcium 80 MG 1 tablet Oral ly Once a day for 30 day(s) Active Lidocaine 5 % 1 application as nee ded Externally Three times a day as needed for rectal/hemorrhoidal discomfort for 30 days 11/07/2023 Active Amitriptyline HCl 25 MG 2 tablet at bedt jonathan Orally Once a day at bedtime Active Vitamin B 12 500 MCG 1 tablet Orally Onc e a day for 30 day(s) Active Ferrous Sulfate 75 (15 Fe) MG/ML as directed Orally Active Calcium 600 MG 1 tablet with meals Orally Twice a day for 30 day(s) Active Trunature Digestive Probiotic Active Glucosamine Chondr 1500 Complx - as directed Orally Active Systane Ultra 0.4-0.3 % as directed Ophthalmic Active Vitamin E 200 UNIT 1 capsule Orally Onc e a day for 30 day(s) Active Trulicity 0.75 MG/0.5ML as directed Subcutaneous Active Lyrica 75 MG 1 capsule Orally Twi ce a day Active Metoprolol Succinate 25 MG 1 capsule Ora lly twice a day Active amLODIPine Besy-Benazepril HCl 2.5-10 MG as directed Orally Active Lidocaine 5 % 1 application as nee ded Externally Three times a day Active Levothyroxine Sodium 100 MCG 1 tablet in the morning on an empty stomach Orally Once a day Active glipiZIDE ER 10 MG 1 tablet with breakf ast Orally twice a day Active IMMUNIZATIONS Vaccine Route Administration Date Status Comme nts Influenza Unknown 12/29/2019 Administered Influenza Unknown 02/15/2021 Administered Influenza Unknown 01/09/2022 Administered Influenza Unknown 03/19/2023 Administered SOCIAL HISTORY Sex Assigned At : Social History Observation Description Sex Assigned At Unknown Alcohol Screen Question Answer Notes Did you have a drink containing alcohol in the p ast year? No Points 0 Interpretation Negative PROBLEMS Problem Type ICD Code Onset Dates Problem Status W/U Status Risk SNOMED Code Notes Problem Rectal bleeding (K62.5) Active confirmed Rectal bleeding (15873924) Problem Other dysphagia (R13.19) Active confirmed 42679854 Problem Dysphagia (R13.10) Active confirmed Dys phagia (95383422) Problem Rectal pain (K62.89) Active confirmed R ectal pain (92852381) Problem Oropharyngeal dysphagia (R13.12) Active confirmed 21008327 Problem External hemorrhoids (K64.4) Active confirmed External hemorrhoids (20456665) Problem Esophageal motility disorder (K22.4) Active confirmed 715341893 Problem Gastroesophageal reflux (K21.9) Active confirmed Esophageal reflux finding (950445902) Problem Gastroesophageal reflux disease, unspecified whether esophagitis present (K21.9) Active confirmed 908035860 Problem Esophageal dysphagia (R13.19) Active confirmed 48311006 VITAL SIGNS Temperature 97.5 degrees Fahrenheit 11/06/2023 Blood pressure diastolic 00 mm Hg 11/06/2023 Height 61 in 11/06/2023 Blood pressure systolic 000 mm Hg 11/06/2023 Weight 175 lb 4 oz lbs 11/06/2023 BMI 33.11 kg/m2 11/06/2023 Encounters Encounter Location Date Provider Diagnosis [facility] [address] [place] [address] 08/01/2023 Otoniel Moya [facility] [address] [place] [phone] 11/06/2023 Otoniel Moya Rectal bleeding K62. 5 ; External hemorrhoids K64.4 and Rectal pain K62.89 [facility] [address] [place] [phone] 08/01/2023 Otoniel Moya [facility] [address] [place] [address] 08/01/2023 Otoniel Moya [facility] [address] [place] [phone] 11/07/2023 Otoniel Moya [facility] [address] [place] [phone] 11/08/2023 Otoniel Moya ASSESSMENTS Encounter Date Diagnosis Assessment Notes Treatment [...] pain (ICD-10 - K62.89) PLAN OF TREATMENT Pending Test Test Name Order Date Esophageal Motility study 03/26/2021 XR BARIUM SWALLOW-ESOPHAGUS 03/26/2021 XR BARIUM SWALLOW, MODIFIED VIDEO 2021 COVID-19 ID NOW ([facility]) 03/26/2021 Future Test Test Name Order Date UPPER GI ENDOSCOPY GUIDE WIRE ESOPH. DIL ATION 12/30/2020 Insurance Providers Payer Name Payer Address Payer Phone Subscriber Number Group Number Insured Name Patient Relationship to Insured Coverage Start Date Coverage End Date [facility] [address] Attn Claims OLIVER Paredes [id number] [place] Self - patient is the insured MEDICAL (GENERAL) HISTORY Medical History History ICD Code Hyperlipidemia Osteoarthritis GERD--EGD with balloon dilat ion in 2007--no definitive stricture nor [id number] HH Denies ME,CVA,Lung disease Osteoporosis Fibromyalgia NIDDM Renal insufficiency Colonoscopy 05/2006 with a sm all tubular adenoma with dysplasia removed; negative colonoscopy in 2008 HTN Dysphagia--upper endoscopy O ctober 2020 revealed a small to moderate-sized hiatal hernia, but no esophagitis or esophageal stricture--esophagus appeared to have diminished peristalsis and some retained fluid in the distal esophagus--a large balloon up to 20 mm was used to dilate the gastroesophageal junction without much clinical effect; proximal esophageal biopsies were negative for eosinophilic esophagitis. Subsequent barium swallow was negative for any obstruction nor significant abnormality. Esophageal motility studies revealed a diffuse ineffective esophageal motility, which was nonspecific.... the lower esophageal sphincter was normal and relaxed appropriately, going against achalasia. She had a modified barium swallow with the speech and language department in June of 2021 that was negative for any sign of aspiration. The speech and language department did not think she needed any specific therapy. Surgical History Surgery Date(Month/Year) Rotator cuff Vein stripping for varicose veins Hysterectomy 3 lower back surgeries--herniated discs Right hip replacement x 2--most recent o ne was in 2016 Fatty tumors Right carpal tunnel surgery 05/2021 hysterectomy
--- OUTSIDE RECORDS SUMMARY | 2024-04-14 13:43 | XMS_ITS ---
Author [facility] [place] Address [address] [place] [address] Care Team Providers Care Web Services Developer Name Role Phone Deandra Peraza Primary Care Provider Marv Gonzalez Unavailable [phone] REASON FOR VISIT Painful nail(s) aggrevated by shoes and causing difficulty standing/walking., Last Visit PCP 05/21/23 Medications Medication SIG (Take, Route, Frequency, Duration) Notes Start Date End Date Status Ciclopirox Olamine 0.77 % 1 application to affected area Externally Twice a day to effected areas on feet for 30 days Active predniSONE 2.5 MG 4 tablets Orally Onc e a day Not-Taking fentaNYL Not-Taking Prednisone 2.5 mg No t-Taking metFORMIN HCl 1000 MG Orally once a day Not-Taking Extra Depth Orthopedic Shoes (1 Pair) with Customized Heat Molded Multidensity Innersoles (3 Pair) as directed Dx: NIDDM/Polyneuropathy (E11.42), Hammertoe Foot Deformity (M20.41,M20.42), Preulcerative Skin Lesion(s) (L85.1 Active Metoprolol & Diet Manage Prod 50 MG as directed Orally Not-Takin g traMADol HCl Not-Buck ing amLODIPine Besylate 5 mg Not-Taking Gabapentin 300 MG 1 capsule Orally Onc e a day Not-Taking Vitamin B12 Active Tylenol Active Ultravate Active Vitamin D Active Extra-Depth Diabetic Shoes with 3 Pair Custom heat-molded multi-density innersoles . 1pair shoes/3sets inserts . . for 1 year Active Naftin Active predniSONE 1 MG 1 tablet Orally Once a day Active Stool Softener Activ e Nitrostat 0.4 mg prn Act shoshana Omeprazole Active Eye Drops Allergy Relief Active Glucosamine Active Docusate Sodium Acti ve Lisinopril Active Lipitor 80 mg Active Citalopram Hydrobromide Active Aspirin EC Active Calcium + D Active Lyrica 75 MG 1 capsule Orally in the morning, 100MG at night Active Amitriptyline HCl 25 MG 1 tablet at bedt jonathan Orally Once a day Active Baclofen Active Trulicity Active Metoprolol Succinate 25 MG 1 capsule Orally Twice a day Active Levothyroxine Sodium 112 MCG 1 tablet in the morning on an empty stomach Orally Once a day Active hydrALAZINE HCl 25 MG 1 tablet with food Orally Active Social History Tobacco Use: Social History Observation Description Date Details (start date - stop date) Never Smoker NA - NA Tobacco Use/Smoking Question Answer Notes Are you a: nonsmoker Additional Findings: Tobacco Non-User Current no n-smoker Alcohol Screen Question Answer Notes Did you have a drink containing alcohol in the p ast year? No Points 0 Interpretation Negative Tobacco use other than smoking: Question Answer Notes Are you an other tobacco user? No Vital Signs Height 5 ft 1 in in 07/02/2023 Weight 175 lbs 07/02/2023 BMI 33.06 kg/m2 07/02/2023 Encounters Encounter Location Date Provider Diagnosis [facility] [address] [address] 07/02/2023 Marv Hsieh Tinea unguium B35.1 ; Type 2 diabetes mellitus with diabetic polyneuropathy E11.42 ; Pain in right toe(s) M79.674 ; Pain in left toe(s) M79.675 ; Other hammer toe(s) (acquired), left foot M20.42 ; Other hammer toe(s) (acquired), right foot M20.41 and Tinea pedis B35.3 Assessments Encounter Date Diagnosis (ICD Code) Assessment Notes Treatment Notes Treatment Clinical Notes Section Notes 07/02/2023 Tinea unguium (ICD-10 - B35.1) 07/02/2023 Type 2 diabetes mellitus with diabetic polyneuropathy (ICD-10 - E11.42) 07/02/2023 Pain in right toe(s) (ICD-10 - M79.674) 07/02/2023 Pain in left toe(s) (ICD-10 - M79.675) 07/02/2023 Other hammer toe(s) (acquired), left foot (ICD-10 - M20.42) 07/02/2023 Other hammer toe(s) (acquired), right foot (ICD-10 - M20.41) 07/02/2023 Tinea pedis (ICD-10 - B35.3) Plan Of Treatment Medication Medication Name Sig Start Date Stop Date Notes Ciclopirox Olamine 0.77 % 1 application to affected area Externally Twice a day to effected areas on feet for 30 days Next Appt Details Follow Up: 3 Months, Reason: Provider Name:Camillacody chen, 04/17/2024 12:00:00 PM, [address] [address] [facility], [address], [place], [address], Procedure Notes * Category Sub-Category Detail Notes Debride Nail 6-10 Nail debridement Nail debridem ent performed extensively to reduce/remove overall nail length and girth, subungual debris, and necrotic tissue, by manual and electrical means with use of a nail nipper and/or dremel, to more viable healthy nail plate or bed tissue 6-10. Silver nitrate used for any petechial bleeding as necessary. Patient chooses, no pharmaceutical tx (11730) Keratoma Treatment Parring or Cutting o f Benign Hyperkeratotic Lesion(s) 27535 ( >4 Lesions) - The Benign hyperkeratotic lesions, as described above were pared, and/or cut utilizing a sterile #15 blade, tissue nippers, and/or dremel Progress Notes * Felicita PÉREZDOB: [birth year] (87 yo F)Acc No.[id number]:07/02/2023 Progress Note Patient:?Felicita Pérez Provider:?Marv Hsieh DPM :1935???Age:87 Y???Sex:Female D ate:07/02/2023 Address:[address] [place], [place] [id number] Pcp:Deandra Peraza Subjective: * Chief Complaints: * ???Painful nail(s) aggrevate d by shoes and causing difficulty standing/walking.Last Visit PCP 05/21/23 * HPI: ???Skin problems:?Nature:?itching, dryness.?Location:?B/L , Forefoot, Midfoot, Heel/Rearfoot.?Duration:?a few months.?Onset/Cause:?unknown.?Course:?improved.? * ROS:?General/Constitutional:?Nausea?denies.?Vomiting?denies.?Hunger Thirst?denies.?Loss appetite?denies.?Chills?denies.?Fatigue?denies.?Fever?denies.?Night Sweats?denies.?Unexplained weight loss?denies.?Unexplained weight gain?denies.?HEENTM:?Dentures?denies.?Dizziness?denies.?Glasses/contacts?admits.?Retinopathy?de nies.?Blurred/double vision?denies.?TMJ?denies.?Discharge/drainage?denies.?Implants?denies.?Sore throat?denies.?Dental implants?denies.?Hard of hearing ?denies.?Difficulty chewing/swallowing/speaking?denies.?Nose bleeds?denies.?Sore mouth?denies.?Respiratory:?On Oxygen?denies.?Pneumonia/pleurisy?denies.?Bronchitis?denies.?Emphysema?denies.?C oughing?denies.?Cough blood?denies.?Shortness of breath?denies.?Wheezing?denies.?Cardiovascular:?Pacemaker?denies.?MVP?denies.?WPW?denies.?CHF?denies.?Heart attack?denies.?Septal defect?denies.?Rapid beat?denies.?Chest pain ?denies.?Atrial Fib.?denies.?Murmur/Palpitations?denies.?Gastrointestinal:?Hemorrhoids?denies.?Stomach/Abdominal pain?denies.?Dark blood stool?denies.?Irritable bowel ?denies.?Constipation?denies.?Diarrhea?denies.?Hematology:?Swelling?denies.?Clots?denies.?Varicose Veins?denies.?Bruising?denies.?Bleeding problem?denies.?Genitourinary:?Blood urine?denies.?Frequent/Painfu/urination/bladder control?denies.?Kidney stones?denies.?Infection (UTI)?denies.?Nephropathy?denies.?sex trans dis (STD)?denies.?Prostate?denies.?Musculoskeletal:?Hammertoes?denies.?Bunions?denies.?Back Pain?denies.?Muscle Cramps/ Resting?denies.?Muscle cramps / walking?denies.?Generalized aches and pains?denies.?Weakness?denies.?Integ.:?Hatch?denies.?Scars?denies.?Corns/calluses?denies.?Ingrown nails?denies.?Painful nails?denies.?Open Sores?denies.?Rashes?denies.?Neurologic:?Difficulty sleeping?denies.?Brain disorder?denies.?Numbness?denies.?Balance trouble?admits.?Confusion?admits.?Fainting/blackouts?denies.?Tingling?denies.?Tr emors?denies.? * Medical History:? * Surgical History:?disc surge ry hip surgery 2005rotator cuff tear repair 2004back surgery 12/22/2012Hip surgery right side 05/07/14Tendon left hand 11/2016carpal tunnel surgery * Hospitalization/Major Diagno stic Procedure:?[facility] 12/22/2012[facility]/07/14[facility] 12/02/16 [facility] 12/16/16 * Family History:?Mother: dece ased.?Father: , diagnosed with Unspecified essential hypertension.?Daughter(s): alive, defects, diagnosed with Family history of arthritis, Diabetic - NIDDM. Son(s): alive, diagnosed with Other malignant neoplasm of unspecified site.?Siblings: arthritis, diabetes, cancer, stroke.?Spouse: alive.?4 son(s) , 7 daughter(s) . .? 1 daughter , 2 son\\'s . * Social History:?Tobacco Use:?Tobacco Use/Smoking?Are you a:?nonsmoker ?Additional Findings: Tobacco Non-User?Current non-smoker ?Tobacco use other than smoking?Are you an other tobacco user??No ???Drugs/Alcohol:?Drugs?Have you used drugs other than those for medical reasons in the past 12 months??No ?Alcohol Screen?Did you have a drink containing alcohol in the past year??No ?Points?0 ?Interpretation?Negative ???Miscellaneous:?Caffeine: yes, 1-2 cups per day. ?Children: yes, eleven. ?Exercise: yes, gardening/yard work/ caregiver. ?Marital status: . ?Occupation: retired. * Medications:?TakingCiclopiro x Olamine 0.77 % Cream 1 application to affected area Externally Twice a day to effected areas on feetBaclofen Trulicity Metoprolol Succinate 25 MG Capsule ER 24 Hour Sprinkle 1 capsule Orally Twice a dayLevothyroxine Sodium 112 MCG Tablet 1 tablet in the morning on an empty stomach Orally Once a dayhydrALAZINE HCl 25 MG Tablet 1 tablet with food Orally Lyrica 75 MG Capsule 1 capsule Orally in the morning, 100MG at nightAmitriptyline HCl 25 MG Tablet 1 tablet at bedtime Orally Once a dayAspirin EC Calcium + D Citalopram Hydrobromide Docusate Sodium Eye Drops Allergy Relief Glucosamine Lipitor 80 mg Lisinopril Naftin Nitrostat 0.4 mg prn Omeprazole predniSONE 1 MG Tablet 1 tablet Orally Once a dayStool Softener Tylenol Ultravate Vitamin B12 Vitamin D Extra-Depth Diabetic Shoes with 3 Pair Custom heat-molded multi-density innersoles . . 1pair shoes/3sets inserts . .Extra Depth Orthopedic Shoes (1 Pair) with Customized Heat Molded Multidensity Innersoles (3 Pair) as directed Dx: NIDDM/Polyneuropathy (E11.42), Hammertoe Foot Deformity (M20.41,M20.42), Preulcerative Skin Lesion(s) (L85.1Taking Ciclopirox Olamine 0.77 % Cream 1 application to affected area Externally Twice a day to effected areas on feetTaking Baclofen Taking Trulicity Taking Metoprolol Succinate 25 MG Capsule ER 24 Hour Sprinkle 1 capsule Orally Twice a dayTaking Levothyroxine Sodium 112 MCG Tablet 1 tablet in the morning on an empty stomach Orally Once a dayTaking hydrALAZINE HCl 25 MG Tablet 1 tablet with food Orally Taking Lyrica 75 MG Capsule 1 capsule Orally in the morning, 100MG at nightTaking Amitriptyline HCl 25 MG Tablet 1 tablet at bedtime Orally Once a dayTaking Aspirin EC Taking Calcium + D Taking Citalopram Hydrobromide Taking Docusate Sodium Taking Eye Drops Allergy Relief Taking Glucosamine Taking Lipitor 80 mg Taking Lisinopril Taking Naftin Taking Nitrostat 0.4 mg prn Taking Omeprazole Taking predniSONE 1 MG Tablet 1 tablet Orally Once a dayTaking Stool Softener Taking Tylenol Taking Ultravate Taking Vitamin B12 Taking Vitamin D Taking Extra-Depth Diabetic Shoes with 3 Pair Custom heat-molded multi-density innersoles . . 1pair shoes/3sets inserts . .Taking Extra Depth Orthopedic Shoes (1 Pair) with Customized Heat Molded Multidensity Innersoles (3 Pair) as directed Dx: NIDDM/Polyneuropathy (E11.42), Hammertoe Foot Deformity (M20.41,M20.42), Preulcerative Skin Lesion(s) (L85.1Not-Taking/PRNMetoprolol & Diet Manage Prod 50 MG Miscellaneous as directed Orally amLODIPine Besylate 5 mg Gabapentin 300 MG Capsule 1 capsule Orally Once a daytraMADol HCl metFORMIN HCl 1000 MG Tablet Orally once a daypredniSONE 2.5 MG Tablet 4 tablets Orally Once a dayfentaNYL Prednisone 2.5 mg Medication List reviewed and reconciled with the patientNot-Taking/PRN Metoprolol & Diet Manage Prod 50 MG Miscellaneous as directed Orally Not-Taking/PRN amLODIPine Besylate 5 mg Not-Taking/PRN Gabapentin 300 MG Capsule 1 capsule Orally Once a dayNot-Taking/PRN traMADol HCl Not-Taking/PRN metFORMIN HCl 1000 MG Tablet Orally once a dayNot-Taking/PRN predniSONE 2.5 MG Tablet 4 tablets Orally Once a dayNot-Taking/PRN fentaNYL Not-Taking/PRN Prednisone 2.5 mg Medication List reviewed and reconciled with the patient * Allergies:?yes[Allergies Imani ified] Objective: * Vitals:?Ht: 5 ft 1 in, Wt:17 5, BMI: 33.06, Shoe size:7, BS:130, Wt-k.38 kg. * ???Past Orders: ???Lab:HEMOGLOBIN A1C (GLYCO HEMOGLOBIN) (Order Date - 05/12/2023) (Collection Date - 05/12/2023) ? Value Reference Range ?HEMOGLOBIN A1C % (HH) 7.2 * Examination: ???Neurological: ?SENSORY:?exam demonstrates. reduced vibration lower extremity, B/L, at Forefoot, Neurological exam demonstrates pop medial left ankle, Neurological exam demonstrates pop T6 .?Vascular: ?DP PULSES:?0/4. B/L.?PT PULSES:?0/4. B/L.?Nails: ?NAILS are:?elongated,overgrown,dystrophic,greater than 3mm thick,discolored and friable with crumbly malodorous subungual debris, with dull pain on palpation due to neuropathy, 1-5 B/L.?Dermatologic: ?SKIN FINDINGS:?Skin exam reveals keratotic lesion(s) located at, Heel, B/L , SUB MTH (s), 5, Right , Skin exam reveals Keratotic lesion(s) located at, SUB MTH (s), 1, B/L , Plantar, TA, T5, T8, T9 , Dorsal, DIPJ, T3, T8, T9, Skin shows sign(s) of, erythema, scaling, in a moccasin fashion, no fissure(s) present, right.?Ophthalmology Referral: ?DIABETES EYE EXAM?Orthopedic: ?DIGITAL DEFORMITIES:? Digital contracture, PIPJ, 2-5 B/L, incompl- reducable to push-up test, no over, nor underlapping.?General Examination: ?GENERAL APPEARANCE:?Reveals a pleasant, alert, well nourished, well developed, well hydrated individual, who demonstrates proper attention to hygene/body habitus, and is in no acute distress.?ORIENTED:?person, place, and time.? Assessment: * Assessment: 1.?Tinea unguium - B35.1 (Pr imary)?2.?Type 2 diabetes mellitus with diabetic polyneuropathy - E11.42?3.?Pain in right toe(s) - M79.674?4.?Pain in left toe(s) - M79.675?5.?Other hammer toe(s) (acquired), left foot - M20.42?6.?Other hammer toe(s) (acquired), right foot - M20.41?7.?Tinea pedis - B35.3? Plan: * Treatment: * Procedures:?Debride Nail 6-10:?Nail debridement?Nail debridement performed extensively to reduce/remove overall nail length and girth, subungual debris, and necrotic tissue, by manual and electrical means with use of a nail nipper and/or dremel, to more viable healthy nail plate or bed tissue 6-10. Silver nitrate used for any petechial bleeding as necessary. Patient chooses, no pharmaceutical tx (79536).?Keratoma Treatment:?Parring or Cutting of Benign Hyperkeratotic Lesion(s)?92320 ( >4 Lesions) - The Benign hyperkeratotic lesions, as described above were pared, and/or cut utilizing a sterile #15 blade, tissue nippers, and/or dremel.? * Procedure Codes:?18998 DEBRI DE NAIL, 6 OR MORE, Modifiers: XS 57800 TRIM SKIN LESIONS, OVER 4, Modifiers: XS * Follow Up:?3 Months * Images: * Sign off status: Completed true * Provider:?Marv Hsieh DPM Date:? 024 Generated for Germaine wilson/Alexander/Christine on:?04/14/2024 01:43 PM EST History and Physical Notes * HPI (History of Present Illness) Category Sub-Category Detail Notes Category Not es Skin problems Nature: itching, dryness Location: B/L , Forefoot, Midf oot, Heel/Rearfoot Duration: a few months Onset/Cause: unknown Course: improved Examination Category Sub-Category Detail Notes Category Not es Neurological SENSORY: exam demonstrate s. reduced vibration lower extremity, B/L, at Forefoot, Neurological exam demonstrates pop medial left ankle, Neurological exam demonstrates pop T6 Dermatologic SKIN FINDINGS: Skin exam reveal s keratotic lesion(s) located at, Heel, B/L , SUB MTH (s), 5, Right , Skin exam reveals Keratotic lesion(s) located at, SUB MTH (s), 1, B/L , Plantar, TA, T5, T8, T9 , Dorsal, DIPJ, T3, T8, T9, Skin shows sign(s) of, erythema, scaling, in a moccasin fashion, no fissure(s) present, right Orthopedic DIGITAL DEFORMITIES: Digital con tracture, PIPJ, 2-5 B/L, incompl-reducable to push-up test, no over, nor underlapping General Examination GENERAL APPEARANCE: Reveals a pleasant, alert, well nourished, well developed, well hydrated individual, who demonstrates proper attention to hygene/body habitus, and is in no acute distress ORIENTED: person, place, and t jonathan Ophthalmology Referral DIABETES EYE EXAM Diabeti c Retinopathy Screening:: Yes 05/21/23 Vascular DP PULSES(B): 0/4. B/L PT PULSES(B): 0/4. B/L Nails NAILS are: elongated,overgr own,dystrophic,greater than 3mm thick,discolored and friable with crumbly malodorous subungual debris, with dull pain on palpation due to neuropathy, 1-5 B/L
--- OUTSIDE RECORDS SUMMARY | 2024-04-14 13:43 | XMS_ITS | Data Portability ---
Author Organization [employer] Address [address] [place] [id number] Care Team Providers Care Manager Of Business Operations Name Role Phone [facility] Referring Provider Assessment Encounter Date Assessment Date Assessment LastModified by Organization Details LastModified Time 09/09/2021 09/09/2021 Patient with diabetes evaluated for dog bite on the hand. She has no systemic symptoms of infection and the wound appeared clean and not grossly infected. Augmentin prophylaxis is indicated for high risk dog bits and location on hand and diabetes are qualities of high risk, therefore will prescribe 5 day course to pharmacy. Not available 09/09/2021 20:23:58 01/29/2022 01/29/2022 I have reviewed and agree with the Assessment and Plan as documented by the Surveillance Director. I provided real -time medical direction via phone for this encounter, and was available for additional phone based assistance as needed. Patient given the opportunity to ask questions. [email or web address] Not available 01/29/2022 21:48:04 07/11/2022 07/11/2022 I provided real -time medical direction via phone for this encounter, and was available for additional phone based assistance as needed. I have reviewed and agree with the Assessment and Plan as documented by the Surveillance Director. Patient given the opportunity to ask questions. patient calls today as she has a couple issues going on. She has a ingrown hair that the family states that they will take care of. On exam the sports physiotherapist describes a very small blister in the upper thigh. There is no drainage and no surrounding erythema. She also has been exposed to flu and has a cough and URI type symptoms. There are no fevers chills chest pain nausea vomiting. She is taking OTC medications with some improvement. POC testing is negative. Given the day above that is all reassuring patient is likely suffering from prolonged symptoms of a URI. Continue with supportive care. She was instructed to follow-up with her PCP in 1 to 2 weeks. [email or web address] Not available 07/11/2022 20:29:29 04/24/2023 04/24/2023 I have reviewed and agree with the assessment and plan as documented by the sports physiotherapist. I provided real-time medical direction for this encounter and was immediately available to provide additional phone-based assistance as needed. 87F presenting with rectal pain and prolapse, along with increase confusion and UTI symptoms. Pt appears uncomfortable, in pain. Unable to provide urine sample today. Also presenting with anxiety/grief due to loss of child recently O/E: Vitals stable, at baseline no fever. Pt confused, worse than baseline. Exam reveals severe rectal prolapse, family notes its worse than ever before. Impression: 87F with confusion, UTI symptoms and severe rectal prolapse. Recommend patient be seen in ED for worsening symptoms. Family agrees with the plan. [email or web address] Not available 04/24/2023 12:10:41 Plan of Treatment Reminders Order Date Submit Date Provider Last Modified By Organization Details Last Modified Time Details Appointments None recorded. Lab rapid SARS CoV 2 Ag, QL IA, respiratory specimen [address], [phone], 3 20:18:15 rapid flu (A+B) [address], [address], 3 20:18:15 Referral None recorded. Procedures None recorded. Surgeries None recorded. Imaging None recorded. Medication Orders amoxicillin 875 mg-potassiu m clavulanate 125 mg tablet 2021 022 [id number], [address] [facility], [place], [address], 20:22:59 Patient TargetsNo targets recorded. Patient InstructionsNo instructions recorded. Reason for Referral None Reported. Results Created Date Observation Date Name Description Value Unit Range Abnormal Flag Note LastModifiedBy Organization Detail LastModifiedTime 07/12/19 23 07/11/2022 rapid flu (A+B) Flu negati ve Not Available [facility] - [facility] [address] [place] [address], [phone], 07/11/2022 20:17:42 07/12/19 23 07/11/2022 rapid SARS CoV 2 Ag, QL IA, respi rator y speci men rapid SARS CoV 2 Ag, QL IA, respiratory specimen negati ve Not Available Main - Inst [facility] [address] [place], [address], 07/11/2022 20:17:41 Result Notes None recorded. Medical Equipment None Reported. Allergies No known drug allergies Medications Name Sig Start Date Stop Date Status Note LastModified by Organization Details LastModified Time amoxicillin 500 mg capsule TAKE 4 CAPSULES BY MOUTH 1 HOUR BEFORE DENTAL PROCEDURE active Not Available Not Available No t Available clotrimazole 10 mg amanda DISSOLVE 1 TABLET BY MOUTH FIVE TIMES DAILY DIRECTED active Not Available Not Available Not Available atorvastatin 80 mg tablet TAKE 1 TABLET BY MOUTH AT BEDTIME active Not Available Not Available No t Available Vitamin C 500 mg tablet TAKE 1 TABLET BY MOUTH TWICE DAILY AT NOON AND IN THE EVENING active Not Available Not Available Not Available hydrocodone 5 mg-acetamino phen 325 mg tablet TAKE 1 TABLET BY MOUTH EVERY 4 TO 6 HOURS NEEDED FOR PAIN active Not Available Not Available No t Available senna 8.6 mg tablet TAKE 2 TABLETS BY MOUTH EVERY DAY NEEDED FOR CONSTIPATIO N active Not Available Not Available No t Available glipizide 10 mg tablet TAKE 1 TABLET BY MOUTH TWICE DAILY IN THE MORNING AND IN THE EVENING BEFORE MEALS active Not Available Not Available No t Available cyanocobalam in (vit B-12) 1,000 mcg tablet TAKE 1 TABLET BY MOUTH EVERY MORNING active Not Available Not Available No t Available hydralazine 25 mg tablet TAKE 1 TABLET BY MOUTH TWICE DAILY AT NOON AND IN THE EVENING active Not Available Not Available Not Available levofloxacin 250 mg tablet TAKE 1 TABLET BY MOUTH EVERY DAY active Not Available Not Available No t Available amlodipine 5 mg tablet TAKE 1 TABLET BY MOUTH EVERYDAY AT NOON active Not Available Not Available No t Available tramadol 50 mg tablet TAKE 1 TABLET BY MOUTH EVERYDAY AT BEDTIME active Not Available Not Available No t Available levothyroxin e 75 mcg tablet TAKE 1 TABLET BY MOUTH EVERY MORNING active Not Available Not Available No t Available citalopram 20 mg tablet TAKE 1 TABLET BY MOUTH EVERYDAY AT NOON active Not Available Not Available No t Available prednisone 1 mg tablet TAKE 1 TABLET BY MOUTH ONCE DAILY POR 1 MONTH, THEN TAKE 1 TABLET BY MOUTH EVERY OTHER DAY POR 3 WEEKS, THEN STOP active Not Available Not Available No t Available amitriptylin e 10 mg tablet TAKE 2 TABLETS BY MOUTH EVERY DAY AT BEDTIME active Not Available Not Available No t Available baclofen 10 mg tablet TAKE 1/2 TABLET BY MOUTH TWICE DAILY NEEDED FOR MUSCLE SPASMS active Not Available Not Available No t Available docusate sodium 100 mg capsule TAKE 1 CAPSULE BY MOUTH TWICE DAILY AT NOON AND IN THE EVENING active Not Available Not Available Not Available gabapentin 300 mg capsule TAKE 1 CAPSULE BY MOUTH AT BEDTIME FOR PAIN active Not Available Not Available No t Available omeprazole 20 mg capsule,kenneth yed release TAKE 1 CAPSULE BY MOUTH TWICE DAILY AT NOON AND IN THE EVENING active Not Available Not Available Not Available cefuroxime axetil 500 mg tablet TAKE 1 TABLET BY MOUTH TWICE DAILY FOR 7 DAYS active Not Available Not Available No t Available loratadine 10 mg tablet TAKE 1 TABLET BY MOUTH EVERYDAY AT NOON active Not Available Not Available No t Available glipizide 5 mg tablet TAKE 1 TABLET BY MOUTH TWICE DAILY IN THE MORNING AND IN THE EVENING BEFORE MEALS active Not Available Not Available No t Available amoxicillin 875 mg-potassium clavulanate 125 mg tablet TAKE 1 TABLET BY MOUTH EVERY 12 HOURS FOR 5 DAYS active Not Available Not Available N ot Available ciclopirox 0.77 % topical cream APPLY TO AFFECTED AREA(S) AND SURROUNDING AREA(S) TWICE DAILY IN THE MORNING AND EVENING active Not Available Not Available No t Available Vitamin D3 25 mcg (1,000 unit) capsule TAKE 1 CAPSULE BY MOUTH EVERYDAY AT NOON active Not Available Not Available No t Available Premarin 0.625 mg/gram vaginal cream INSERT 0.5 GRAMS VAGINALLY TWICE WEEKLY AT BEDTIME active Not Available Not Available No t Available pregabalin 75 mg capsule TAKE 1 CAPSULE BY MOUTH EVERYDAY AT NOON active Not Available Not Available No t Available pregabalin 100 mg capsule TAKE 1 CAPSULE BY MOUTH AT BEDTIME active Not Available Not Available No t Available pregabalin 150 mg capsule TAKE 1 CAPSULE BY MOUTH TWICE DAILY AT NOON AND BEDTIME active Not Available Not Available No t Available calcium 600 mg (as carbonate)-v itamin D3 10 mcg (400 unit) tablet TAKE 1 TABLET BY MOUTH TWICE DAILY AT NOON AND IN THE EVENING active Not Available Not Available Not Available FeroSul 325 mg (65 mg iron) tablet TAKE 1 TABLET BY MOUTH TWICE DAILY AT NOON AND IN THE EVENING WITH ORANGE JUICE active Not Available Not Available No t Available Prolia 60 mg/mL subcutaneous syringe active Not Available Not Available Not Available Myrbetriq 25 mg tablet,exten ded release TAKE 1 TABLET BY MOUTH EVERYDAY AT NOON DO NOT BREAK, CRUSH, DISSOLVE OR CHEW active Not Available Not Available No t Available Vitals Date Recorded Oxygen saturation Oxygen saturation in Arterial blood by Pulse oximetry Body temperature Respiratory rate Heart rate Body weight Systolic blood pressure Diastolic blood pressure Provider Name and Address Organization Details Last Updated DateTime 3 98 % 98 % 98.2 [degF] 18 /min 88 /min 28617.5 6 g 156 mm[Hg] 62 mm[Hg] Not Available [facility] 3 12:02:18 Date Recorded Respiratory rate Heart rate Oxygen saturation Oxygen saturation in Arterial blood by Pulse oximetry Body temperature Heart rate Respiratory rate Oxygen saturation Oxygen saturation in Arterial blood by Pulse oximetry Body temperature Systolic blood pressure Diastolic blood pressure Systolic blood pressure Diastolic blood pressure Provider Name and Address Organization Details Last Updated DateTime 2 20 /min 110 /min 97 % 97 % 99 [degF] 110 /min 20 /min 97 % 97 % 99 [degF] 148 mm[Hg] 83 mm[Hg] 148 mm[Hg] 83 mm[Hg] Not Available [facility] 2 16:38:03 Date Recorded Body temperature Respiratory rate Oxygen saturation Oxygen saturation in Arterial blood by Pulse oximetry Heart rate Systolic blood pressure Diastolic blood pressure Provider Name and Address Organization Details Last Updated DateTime 2 99.2 [degF] 18 /min 98 % 98 % 76 /min 134 mm[Hg] 54 mm[Hg] Not Available [facility] 2 16:31:53 Date Recorded Oxygen saturation Oxygen saturation in Arterial blood by Pulse oximetry Heart rate Body weight Respiratory rate Body temperature Systolic blood pressure Diastolic blood pressure Provider Name and Address Organization Details Last Updated DateTime 3 97 % 97 % 90 /min 48895.5 6 g 16 /min 98.7 [degF] 167 mm[Hg] 90 mm[Hg] Not Available [facility] 3 20:12:57 Date Recorded Respiratory rate Body height Body temperature Body weight Heart rate Oxygen saturation Oxygen saturation in Arterial blood by Pulse oximetry Body height Respiratory rate Heart rate Body weight Oxygen saturation Oxygen saturation in Arterial blood by Pulse oximetry Body temperature Systolic blood pressure Diastolic blood pressure Systolic blood pressure Diastolic blood pressure Provider Name and Address Organization Details Last Updated DateTime 2 18 /min 160.02 cm 97.2 [degF] 61916.9 04 g 94 /min 95 % 95 % 160.02 cm 18 /min 94 /min 56218.9 04 g 95 % 95 % 97.2 [degF] 144 mm[Hg] 80 mm[Hg] 144 mm[Hg] 80 mm[Hg] Not Available [facility] 2 21:10:13 Social History None recorded. Functional Status None recorded. Mental Status None recorded. Family History Nothing Reported. Medical History No medical history recorded. Gynecological HistoryNo gynecological history recorded. Obstetrics History GPAL:G 0 P 0 0 0 0 Past Encounters Encounter ID Performer Location Encounter Start Date Encounter Closed Date Diagnosis/Indication Diagnosis SNOMED-CT Code Diagnosis ICD10 Code [id number] Ashish Valdez MD [facility] - [facility] [address] [place] [id number] 09/09/2021 20:19:52 01/04/2022 15:08:36 Dog bite of hand [id number] S61.452A [id number] Key Alcantar MD Main - [facility] [address] [place] [id number] 01/27/2022 15:48:44 01/29/2022 14:10:35 COVID-19 [id number] U07.1 [id number] Shea Martinez MD Main - [facility] [address] [place] [id number] 01/29/2022 16:25:19 02/01/2022 15:07:11 COVID-19 [id number] U07.1 [id number] Yesenia Purvis MD Main - [facility] [address] [place] [id number] 07/11/2022 20:12:53 07/13/2022 11:05:18 Respiratory tract congestion and cough [id number] R05.9 [id number] Clari José MD Main - [address] [id number] 04/24/2023 12:02:13 04/25/2023 09:55:54 Rectal prolapse 90253283 K62.3 Health Concerns Section Related Observation LastModified by Organization Detai ls LastModified Time None Recorded Concern Status LastModified by Organization Details LastModified Time None Recorded Advance Directives Directive None Recorded Payers Encounter Date Sequence Insurance Name Policy Number Policy Marquez Covered Member ID Marquez Member ID Guarantor Name 09/09/2021 1 [facility] - DOS PRIOR TO 2022 - DUAL ELIGIBLE (MEDICARE REPLACEMENT/ADV ANTAGE - HMO) [facility] [id number] [facility] 01/27/2022 1 [facility] [employer] - DOS PRIOR TO 2022 - DUAL ELIGIBLE (MEDICARE REPLACEMENT/ADV ANTAGE - HMO) [facility] [id number] [facility] 01/29/2022 1 [facility] - DOS PRIOR TO 2022 - DUAL ELIGIBLE (MEDICARE REPLACEMENT/ADV ANTAGE - HMO) [facility] [id number] [facility] 07/11/2022 1 [facility] - DOS PRIOR TO 2022 - DUAL ELIGIBLE (MEDICARE REPLACEMENT/ADV ANTAGE - HMO) [facility] [id number] [facility] 04/24/2023 1 [facility] [employer] - DOS ON OR AFTER 2022 - DUAL ELIGIBLE - ASSISTED OPTIONS AND ONE CARE (MEDICARE REPLACEMENT/ADV ANTAGE - HMO) [facility] [id number] [facility] Notes Date Note Type Note Provider Name and Address Organization Details Recorded Time 09/09/2021 text/html [facility] Nursing Assessment: Reason For Request: Swollen hand Chief Complaints: Cellulitis Allergies: Unknown Comments: Member was bit by her dog 3 days ago. Daughter reports redness and swelling around sight, minimal pain, not warm to touch, but concerned for infection since member is diabetic. They are cleansing the site and applying abx ointment. Would like assess if bite and skin around it. .................. .................. .................. .................. .................. .................. .................. ............... Surveillance Director Note: Sent to a call for a pt who was bit by a dog 3 days ago. SC6 arrives on scene. Pt is alert and oriented. Airway is patent. Pt's daughter states pt was bit on right hand 3 days ago by one of their 15wk old puppies. Puppy is vaccinated and had received a rabies vaccination prior to incident. Pt has no complaints. Daughter just wants to be cautious because pt is a diabetic. Laceration is on top of pt's right hand above thumb and index finger. -erythema, -edema, -streaking or heat noted at sight. Pt's daughter has been washing wound and treating with antibiotic ointment. BP:144/80, P:94, RR:18, SpO2:95%, T:97.2; Lung sounds: clear bilaterally, [facility] sends script to pt's pharmacy for Augmentin. Red flags discussed. Pt and daughter have no further questions. .................. .................. .................. .................. .................. .................. .................. ............... Disposition: Fulfilled Ashish Valdez MD [address] [facility],[address], [place], [address], KEANU YO 09/09/2021 21:12:42 01/27/2022 text/html [facility] Nursing Assessment: Reason For Request: +covid Patient Reports: Cough, fever greater than 2 days ; COVID Exposure; Cough; Shortness of breath with exertion Denies: Lower extremity swelling History of asthma, increased use of inhaler COPD Sputum increase Pain with inspiration Chief Complaints: Cough, URI PMH: Diabetes, Hypertension, Heart Disease Allergies: Unknown Comments: Member daughter +covid last Saturday. Member tested positive this morning. She was up all night. Has symptoms of dry cough, runny/stuffy nose, headache, aches and mild sob, denies fever or chills. Daughter would like an assessment. .................. .................. .................. .................. .................. .................. .................. ............... Surveillance Director Note: 86 yo female c/o cough, headache, sore throat. Covid in the home. Lung sounds clear and diminished. Rapid covid test positive. .................. .................. .................. .................. .................. .................. .................. ............... Disposition: Farshad Alcantar MD [address] [facility],[address], [place], [address], [place] [facility] KEANU 01/28/2022 00:20:26 01/29/2022 text/html CRC Nursing Assessment: Reason For Request: covid + Patient Reports: Cough, fever greater than 2 days ; COVID Exposure; Sputum increase ; CoughDenies: Lower extremity swelling History of asthma, increased use of inhaler COPD Shortness of breath with exertion Pain with inspiration Chief Complaints: Cough, HeadachePMH: Diabetes, Hypertension, Heart DiseaseAllergies: No KnownComments: Member was found to be COVID+ on 01/27. Member was told to call the ER for monoclonal infusion , ER said that there is a wait and would need to be evaluated. Daughter did not want to have her wait. would like member to be assessed for possible paxlovid , Member has continued cough/ F/c no N/v/d or sob .................. .................. .................. .................. .................. .................. .................. ............... Surveillance Director Note: Pt was diagnosed with COVID on Saturday and at that time was advised that Paxlovid was not a great option for her due to current meds and health conditions. Pt did not want to wait at the ED. Pt was advised that kidney function could be done now and it is possible to start a reduced dose of paxlovid but it has its risks. Pt stated she would go to the ED and get the transfusion. [facility] contacted. Red flags discussed. Daughter to bring Pt to [facility] .................. .................. .................. .................. .................. .................. .................. ............... Disposition: FulfilledSEGMD: As above-Pat w/ known CKD- no labs done 01/27. On record review had GFR 42 in August and cr of 1.29 in Nov 2021 without GFR or BUN noted. Pat has several different med lists- purportedly on amlodipine/levothy roxine/ atorvastatin among others which can also interfere with Paxlovid. Pat denies CP/ WHARTON. Today is the end of day 4 of symptoms. Shea Martinez MD [address] [facility],[address], [place], [address], [employer] 01/29/2022 21:55:28 07/11/2022 text/html HPI: Pt daughter reports abscess on inner right groin. Noticed it last night. Per daughter it is very firm and tender. Per daughter no fever. Pt is having chills last week. Pt has a cold. Has not become any larger. Very tender to touch. No appts on teams. Agrees to [employer] for exam today to rule out need for abx. .................. .................. .................. .................. .................. .................. .................. ............... CRC Nursing Assessment: Comments: CRC RN DID NOT NEED FURTHER INFO .................. .................. .................. .................. .................. .................. .................. ............... Surveillance Director Note From Michael Webster: Dispatched to the above for the 86 y/o female cellulitis upon arrival the pt was sitting in the kitchen area, the pt was A8O X4, skin pink / warm / dry, strong regular radial pulses, talking in full non - labored sentences, cc listed above Family was flu (+) last week and the pt started having runny nose and cold symptoms yesterday and taking over the counter meds w/o relief, ( - ) chest pain, ( - ) difficulty breathing, ( - ) weakness , ( - ) nausea / vomiting / diarrhea / fevers, pt reported a painful bump on the inner upper thigh - ingrown hair family said they would take care of, rapid covid and flu A/B (- ) . pt denied further medical / physical complaints, called and supportive care discussed and when to call back or 911 .................. .................. .................. .................. .................. .................. .................. ............... Disposition: Fulfilled Yesenia Purvis MD [address] [facility],[address], [place], [address], [employer] 07/11/2022 20:30:12 04/24/2023 text/html HPI: Pt is having rectal pain due to hemmorrhoids. Has had some bleeding since 04/19/23 when returned from [place]. Pt also has increased confusion and is suspect of UTI. .................. .................. .................. .................. .................. .................. .................. ............... CRC Nurse Triage Notes (Ngoc Warner): Comments: No further information needed. .................. .................. .................. .................. .................. .................. .................. ............... Surveillance Director Note From Darrel Velásquez: Pt co of severe rectal pain and bleeding. Family concerned for possible UTI due to confusion. Unable to urinate at this time. Pt denies cp sob fever nausea or vomiting. Rectum is very swollen/appears prolapsed possibly. Baseline vitals assessed. [facility] contacted and advised to be seen in the ER. 911 called for transport to [facility]. Pt had difficulty sitting on her bottom so ambulance transport was decided best by family. .................. .................. .................. .................. .................. .................. .................. ............... Disposition: Fulfilled Clari José MD [address] [place] [address],[address], [place], [address], [facility] 04/24/2023 15:26:16 OBGyn Episode No OBEpisode recorded.
--- OUTSIDE RECORDS SUMMARY | 2024-04-14 13:43 | XMS_ITS ---
Author Organization [employer] [facility] [place] Address [address] [facility] [place] [address] Care Team Providers Care Cash Management Associate Name Role Phone Deandra Peraza Primary Care Provider Marv Gonzalez Unavailable [phone] REASON FOR VISIT Painful nail(s) aggrevated by shoes and causing difficulty standing/walking., Last Visit PCP 10/03/23 Medications Medication SIG (Take, Route, Frequency, Duration) Notes Start Date End Date Status Nitrostat 0.4 mg prn Act shoshana Naftin Active predniSONE 1 MG 1 tablet Orally Once a day Not-Taking Omeprazole Active Stool Softener Activ e Docusate Sodium Acti ve Glucosamine Active Eye Drops Allergy Relief Active Lisinopril Active Lipitor 80 mg Active Lyrica 75 MG 1 capsule Orally in the morning, 100MG at night Active Aspirin EC Active Amitriptyline HCl 25 MG 1 tablet at bedt jonathan Orally Once a day Active Citalopram Hydrobromide Active Calcium + D Active Trulicity Active Ciclopirox Olamine 0.77 % 1 application to affected area Externally Twice a day to effected areas on feet for 30 days Active Levothyroxine Sodium 112 MCG 1 tablet in the morning on an empty stomach Orally Once a day Active Metoprolol Succinate 25 MG 1 capsule Orally Twice a day Active hydrALAZINE HCl 25 MG 1 tablet with food Orally Active Plavix Active fentaNYL Not-Taking Chlorthalidone Activ e Baclofen Active Prednisone 2.5 mg No t-Taking metFORMIN HCl 1000 MG Orally once a day Not-Taking predniSONE 2.5 MG 4 tablets Orally Onc e a day Not-Taking amLODIPine Besylate 5 mg Active traMADol HCl Not-Buck ing Gabapentin 300 MG 1 capsule Orally Onc e a day Not-Taking Vitamin D Active Vitamin B12 Active Extra Depth Orthopedic Shoes (1 Pair) with Customized Heat Molded Multidensity Innersoles (3 Pair) as directed Dx: NIDDM/Polyneuropathy (E11.42), Hammertoe Foot Deformity (M20.41,M20.42), Preulcerative Skin Lesion(s) (L85.1 Active Extra-Depth Diabetic Shoes with 3 Pair Custom heat-molded multi-density innersoles . 1pair shoes/3sets inserts . . for 1 year Active Metoprolol & Diet Manage Prod 50 MG as directed Orally Not-Takin g Ultravate Active Tylenol Active Social History Tobacco Use: Social History [...] Signs Height 5 ft 1 in in 01/07/2024 Weight 175 lbs 01/07/2024 BMI 33.06 kg/m2 01/07/2024 Encounters Encounter Location Date Provider Diagnosis [facility] [address] [address] 01/07/2024 Marv Hsieh Tinea unguium B35.1 ; Type 2 diabetes mellitus with diabetic polyneuropathy E11.42 ; Pain in right toe(s) M79.674 ; Pain in left toe(s) M79.675 ; Other hammer toe(s) (acquired), left foot M20.42 ; Other hammer toe(s) (acquired), right foot M20.41 and Tinea pedis B35.3 Assessments Encounter Date Diagnosis (ICD Code) Assessment Notes Treatment Notes Treatment Clinical Notes Section Notes 01/07/2024 Tinea unguium (ICD-10 - B35.1) 01/07/2024 Type 2 diabetes mellitus with diabetic polyneuropathy (ICD-10 - E11.42) 01/07/2024 Pain in right toe(s) (ICD-10 - M79.674) 01/07/2024 Pain in left toe(s) (ICD-10 - M79.675) 01/07/2024 Other hammer toe(s) (acquired), left foot (ICD-10 - M20.42) 01/07/2024 Other hammer toe(s) (acquired), right foot (ICD-10 - M20.41) 01/07/2024 Tinea pedis (ICD-10 - B35.3) Plan Of Treatment Medication Medication Name Sig Start Date Stop Date Notes Ciclopirox Olamine 0.77 % 1 application to affected area Externally Twice a day to effected areas on feet for 30 days Next Appt Details Follow Up: 3 Months, Reason: Provider Name:Camilla chen, 04/17/2024 12:00:00 PM, [address] [facility], [address], [place], [address], Procedure Notes * Category Sub-Category Detail Notes [...] as necessary. Patient chooses, no pharmaceutical tx (11300) Keratoma Treatment Parring or Cutting o f Benign Hyperkeratotic Lesion(s) 26072 ( >4 Lesions) - The Benign hyperkeratotic lesions, as described above were pared, and/or cut utilizing a sterile #15 blade, tissue nippers, and/or dremel Progress Notes * Felicita PÉREZDOB: [birth year] (88 yo F)Acc No.[id number]:01/07/2024 Progress Note Patient:?Felicita Pérez Provider:?Marv Hsieh DPM :1935???Age:88 Y???Sex:Female D ate:01/07/2024 Address:[address] [place], [place] [address] Pcp:Deandra Peraza Subjective: * Chief Complaints: * ???Painful nail(s) aggrevate d by shoes and causing difficulty standing/walking.Last Visit PCP 10/03/23 * ROS:?General/Constitutional:?Nausea?denies.?Vomiting?denies.?Hunger Thirst?denies.?Loss appetite?denies.?Chills?denies.?Fatigue?denies.?Fever?denies.?Night Sweats?denies.?Unexplained weight loss?denies.?Unexplained [...] [facility] - [facility] 12/02/16 & 12/16/[facility], heart * Family History:?Mother: dece ased.?Father: , diagnosed [...] caregiver. ?Marital status: . ?Occupation: retired. * Medications:?TakingPlavix Ch lorthalidone Ciclopirox Olamine 0.77 % Cream 1 application [...] Lisinopril Naftin Nitrostat 0.4 mg prn Omeprazole Stool Softener Tylenol Ultravate Vitamin B12 Vitamin D Extra-Depth Diabetic Shoes with 3 Pair Custom heat-molded multi-density innersoles . . 1pair shoes/3sets inserts . .Extra Depth Orthopedic Shoes (1 Pair) with Customized Heat Molded Multidensity Innersoles (3 Pair) as directed Dx: NIDDM/Polyneuropathy (E11.42), Hammertoe Foot Deformity (M20.41,M20.42), Preulcerative Skin Lesion(s) (L85.1amLODIPine Besylate 5 mg Taking Plavix Taking Chlorthalidone Taking Ciclopirox Olamine 0.77 % Cream 1 application [...] Nitrostat 0.4 mg prn Taking Omeprazole Taking Stool Softener Taking Tylenol Taking Ultravate Taking Vitamin B12 Taking Vitamin D Taking Extra-Depth Diabetic Shoes with 3 Pair Custom heat-molded multi-density innersoles . . 1pair shoes/3sets inserts . .Taking Extra Depth Orthopedic Shoes (1 Pair) with Customized Heat Molded Multidensity Innersoles (3 Pair) as directed Dx: NIDDM/Polyneuropathy (E11.42), Hammertoe Foot Deformity (M20.41,M20.42), Preulcerative Skin Lesion(s) (L85.1Taking amLODIPine Besylate 5 mg Not-Taking/PRNpredniSONE 1 MG Tablet 1 tablet Orally Once a dayMetoprolol & Diet Manage Prod 50 MG Miscellaneous as directed Orally Gabapentin 300 MG Capsule 1 capsule Orally Once a daytraMADol HCl metFORMIN HCl 1000 MG Tablet Orally once a daypredniSONE 2.5 MG Tablet 4 tablets Orally Once a dayfentaNYL Prednisone 2.5 mg Medication List reviewed and reconciled with the patientNot-Taking/PRN predniSONE 1 MG Tablet 1 tablet Orally Once a dayNot-Taking/PRN Metoprolol & Diet Manage Prod 50 MG Miscellaneous as directed Orally Not-Taking/PRN Gabapentin 300 MG Capsule 1 capsule Orally Once a dayNot-Taking/PRN traMADol HCl Not-Taking/PRN metFORMIN HCl 1000 MG Tablet Orally once a dayNot-Taking/PRN predniSONE 2.5 MG Tablet 4 tablets Orally Once a dayNot-Taking/PRN fentaNYL Not-Taking/PRN Prednisone 2.5 mg Medication List reviewed and reconciled with the patient * Allergies:?yes[Allergies Imani ified] Objective: * Vitals:?Ht: 5 ft 1 in, Wt:17 5, BMI: 33.06, Shoe size:7, Wt-k.38 kg. * Examination: ???Neurological: ?SENSORY:?exam demonstrates. reduced vibration [...] as necessary. Patient chooses, no pharmaceutical tx (07258).?Keratoma Treatment:?Parring or Cutting of Benign Hyperkeratotic Lesion(s)?49693 ( >4 Lesions) - The Benign hyperkeratotic lesions, as described above were pared, and/or cut utilizing a sterile #15 blade, tissue nippers, and/or dremel.? * Procedure Codes:?61060 DEBRI DE NAIL, 6 OR MORE, Modifiers: XS 73562 TRIM SKIN LESIONS, OVER 4, Modifiers: XS * Follow Up:?3 Months * Images: * Sign off status: Completed true * Provider:?Marv Hsieh DPM Date:? 024 Generated for Germaine wilson/Alexander/Marivelitting on:?04/14/2024 01:42 PM EST History and Physical Notes * Examination Category Sub-Category Detail Notes Category Not [...]
--- OUTSIDE RECORDS SUMMARY | 2024-04-14 13:43 | XMS_ITS ---
Author Organization [facility] [place] Address [address] [facility] [place] [address] Care Team Providers Care Content Management Consultant Name Role Phone DocDeandra amanda Primary Care Provider Marv Gonzalez Unavailable [phone] Allergies No Known Allergies REASON FOR VISIT Painful nail(s) aggrevated by shoes and causing difficulty standing/walking., Last Visit PCP 07/03/23 Medications Medication SIG (Take, Route, Frequency, Duration) Notes Start Date End Date Status Amitriptyline HCl 25 MG 1 tablet at bedt jonathan Orally Once a day Active Aspirin EC Active Lyrica 75 MG 1 capsule Orally in the morning, 100MG at night Active Calcium + D Active Citalopram Hydrobromide Active hydrALAZINE HCl 25 MG 1 tablet with food Orally Active Metoprolol Succinate 25 MG 1 capsule Orally Twice a day Active Levothyroxine Sodium 112 MCG 1 tablet in the morning on an empty stomach Orally Once a day Active Baclofen Active Trulicity Active traMADol HCl Not-Buck ing metFORMIN HCl 1000 MG Orally once a day Not-Taking predniSONE 2.5 MG 4 tablets Orally Onc e a day Not-Taking fentaNYL Not-Taking Prednisone 2.5 mg No t-Taking Gabapentin 300 MG 1 capsule Orally Onc e a day Not-Taking Metoprolol & Diet Manage Prod 50 MG as directed Orally Not-Takin g amLODIPine Besylate 5 mg Not-Taking Extra Depth Orthopedic Shoes (1 Pair) with Customized Heat Molded Multidensity Innersoles (3 Pair) as directed Dx: NIDDM/Polyneuropathy (E11.42), Hammertoe Foot Deformity (M20.41,M20.42), Preulcerative Skin Lesion(s) (L85.1 Active Ciclopirox Olamine 0.77 % 1 application to affected area Externally Twice a day to effected areas on feet for 30 days Active Ultravate Active Tylenol Active Extra-Depth Diabetic Shoes with 3 Pair Custom heat-molded multi-density innersoles . 1pair shoes/3sets inserts . . for 1 year Active Vitamin B12 Active Vitamin D Active Omeprazole Active predniSONE 1 MG 1 tablet Orally Once a day Active Naftin Active Nitrostat 0.4 mg prn Act shoshana Stool Softener Activ e Docusate Sodium Acti ve Eye Drops Allergy Relief Active Lipitor 80 mg Active Lisinopril Active Glucosamine Active Social History Tobacco Use: Social History [...] Signs Height 5 ft 1 in in 10/01/2023 Weight 175 lbs 10/01/2023 BMI 33.06 kg/m2 10/01/2023 Encounters Encounter Location Date Provider Diagnosis [facility] [address] [address] 10/01/2023 Marv Hsieh Tinea unguium B35.1 ; Type 2 diabetes mellitus with diabetic polyneuropathy E11.42 ; Pain in right toe(s) M79.674 ; Pain in left toe(s) M79.675 ; Other hammer toe(s) (acquired), left foot M20.42 ; Other hammer toe(s) (acquired), right foot M20.41 and Tinea pedis B35.3 Assessments Encounter Date Diagnosis (ICD Code) Assessment Notes Treatment Notes Treatment Clinical Notes Section Notes 10/01/2023 Tinea unguium (ICD-10 - B35.1) 10/01/2023 Type 2 diabetes mellitus with diabetic polyneuropathy (ICD-10 - E11.42) 10/01/2023 Pain in right toe(s) (ICD-10 - M79.674) 10/01/2023 Pain in left toe(s) (ICD-10 - M79.675) 10/01/2023 Other hammer toe(s) (acquired), left foot (ICD-10 - M20.42) 10/01/2023 Other hammer toe(s) (acquired), right foot (ICD-10 - M20.41) 10/01/2023 Tinea pedis (ICD-10 - B35.3) Plan Of Treatment Medication Medication Name Sig Start Date Stop Date Notes Ciclopirox Olamine 0.77 % 1 application to affected area Externally Twice a day to effected areas on feet for 30 days Next Appt Details Follow Up: 3 Months, Reason: Provider Name:Camilla chen, 04/17/2024 12:00:00 PM, [address] [facility], [address], [place], [address], Procedure Notes * Category Sub-Category Detail Notes [...] as necessary. Patient chooses, no pharmaceutical tx (43517) Keratoma Treatment Parring or Cutting o f Benign Hyperkeratotic Lesion(s) 84554 ( >4 Lesions) - The Benign hyperkeratotic lesions, as described above were pared, and/or cut utilizing a sterile #15 blade, tissue nippers, and/or dremel Progress Notes * Felicita PÉREZDOB: [birth year] (88 yo F)Acc No.[id number]:10/01/2023 Progress Note Patient:?PérezFelicita Provider:?Marv Hsieh DPM :1935???Age:88 Y???Sex:Female D ate:10/01/2023 Address:[address] [place], [place] [address] Pcp:Deandra Peraza Subjective: * Chief Complaints: * ???Painful nail(s) aggrevate d by shoes and causing difficulty standing/walking.Last Visit PCP 07/03/23 * HPI: ???Skin problems:?Nature:?itching, dryness.?Location:?B/L , Forefoot, [...] hip surgery [facility] 12/02/16 & 12/16/16 * Family History:?Mother: dece [...] reviewed and reconciled with the patient * Allergies:?N.K.D.A.yes[Aller gies Verified] Objective: * Vitals:?Ht: 5 ft 1 in, Wt: 1 75, BMI: 33.06, Shoe size: 7, BS: 127, Wt-k.38 kg. * ???Past Orders: ???Lab:HEMOGLOBIN A1C [...] as necessary. Patient chooses, no pharmaceutical tx (94560).?Keratoma Treatment:?Parring or Cutting of Benign Hyperkeratotic Lesion(s)?54157 ( >4 Lesions) - The Benign hyperkeratotic lesions, as described above were pared, and/or cut utilizing a sterile #15 blade, tissue nippers, and/or dremel.? * Procedure Codes:?80545 DEBRI DE NAIL, 6 OR MORE, Modifiers: XS 49015 TRIM SKIN LESIONS, OVER 4, Modifiers: XS * Follow Up:?3 Months * Images: * Sign off status: Completed true * Provider:?Marv Hsieh DPM Date:? 024 Generated for Germaine wilson/Alexander/Christine on:?04/14/2024 01:42 PM EST History and Physical [...]
--- OUTSIDE RECORDS SUMMARY | 2024-04-14 13:43 | XMS_ITS | Patient Health Record ---
Author Organization [facility] Address [address] [facility] [place] [address] Care Team Providers Care Records And Tape Recordings Engineer Name Role Phone Deandra Peraza Primary Care Provider Marv Gonzalez Unavailable [phone] Allergies No Known Allergies Results Component Value Reference Range Notes HEMOGLOBIN A1C (GLYCOHEMOGLO BIN) Reviewed date:07/02/2023 01:08:02 PM Interpretation: Performing Lab: Notes/Report: HEMOGLOBIN A1C % (HH) 7.2 HEMOGLOBIN A1C (GLYCOHEMOGLO BIN) Reviewed date:01/07/2024 01:11:12 PM Interpretation: Performing Lab: Notes/Report: HEMOGLOBIN A1C % (HH) 7.0 Reason For Referral No Information Medications Medication SIG (Take, Route, Frequency, Duration) Notes Start Date End Date Status Ultravate Active Tylenol Active Trulicity Active Vitamin D Active Baclofen Active Vitamin B12 Active Levothyroxine Sodium 112 MCG 1 tablet in the morning on an empty stomach Orally Once a day Active Extra Depth Orthopedic Shoes (1 Pair) with Customized Heat Molded Multidensity Innersoles (3 Pair) as directed Dx: NIDDM/Polyneuropathy (E11.42), Hammertoe Foot Deformity (M20.41,M20.42), Preulcerative Skin Lesion(s) (L85.1 Active Metoprolol Succinate 25 MG 1 capsule Orally Twice a day Active Extra-Depth Diabetic Shoes with 3 Pair Custom heat-molded multi-density innersoles . 1pair shoes/3sets inserts . . for 1 year Active Lyrica 75 MG 1 capsule Orally in the morning, 100MG at night Active amLODIPine Besylate 5 mg Active hydrALAZINE HCl 25 MG 1 tablet with food Orally Active Metoprolol & Diet Manage Prod 50 MG as directed Orally Not-Takin g Aspirin EC Active traMADol HCl Not-Buck ing Amitriptyline HCl 25 MG 1 tablet at bedt jonathan Orally Once a day Active Gabapentin 300 MG 1 capsule Orally Onc e a day Not-Taking Citalopram Hydrobromide Active Calcium + D Active Ciclopirox Olamine 0.77 % 1 application to affected area Externally Twice a day to effected areas on feet for 30 days Active Plavix Active metFORMIN HCl 1000 MG Orally once a day Not-Taking Docusate Sodium Acti ve fentaNYL Not-Taking Chlorthalidone Activ e predniSONE 2.5 MG 4 tablets Orally Onc e a day Not-Taking Glucosamine Active Eye Drops Allergy Relief Active Prednisone 2.5 mg No t-Taking Lisinopril Active Lipitor 80 mg Active Nitrostat 0.4 mg prn Act shoshana Naftin Active predniSONE 1 MG 1 tablet Orally Once a day Not-Taking Omeprazole Active Stool Softener Activ e Immunizations Vaccine Route Administration Date Status Comme nts COVID-19 Pfizer BioNTech Vaccine Unknown 06/09/2020 Adm inistered COVID-19 Pfizer BioNT[employer] Vaccine Unknown 06/30/2020 Adm inistered Influenza Unknown 01/10/2015 Administered Influenza Unknown 02/08/2016 Administered Influenza Unknown 01/28/2017 Administered Influenza Unknown 02/26/2018 Administered Influenza Unknown 03/09/2020 Administered Pneumococcal Unknown 01/10/2015 Administered Social History Tobacco Use: Social History Observation [...] Are you an other tobacco user? No Section Notes: Flu & Pneumonia shot 01/10/15 Flu & Pneumonia shot 01/10/15 Flu & Pneumonia shot 01/10/15 Flu & Pneumonia shot 01/10/15 Flu & Pneumonia shot 01/10/15 Problems Problem Type SNOMED Code ICD Code Onset Dates Problem Status W/U Status Risk Notes Problem Acquired hammer toe of right foot (2027938733484751 ) Other hammer toe(s) (acquired), right foot (M20.41) Active confirmed Problem Acquired hammer toe of left foot (6309960465459830 ) Other hammer toe(s) (acquired), left foot (M20.42) Active confirmed Problem Polyneuropathy due to type 2 diabetes mellitus (694773552) Type 2 diabetes mellitus with diabetic polyneuropathy (E11.42) Active confirmed Vital Signs Height 5 ft 1 in in 01/07/2024 Weight 175 lbs 01/07/2024 BMI 33.06 kg/m2 01/07/2024 Encounters Encounter Location Date Provider Diagnosis [address] [address] 07/02/2023 MarvManriquez Tinea unguium B35.1 ; Type 2 diabetes mellitus with diabetic polyneuropathy E11.42 ; Pain in right toe(s) M79.674 ; Pain in left toe(s) M79.675 ; Other hammer toe(s) (acquired), left foot M20.42 ; Other hammer toe(s) (acquired), right foot M20.41 and Tinea pedis B35.[address] [address] 10/01/2023 MarvManriquez Tinea unguium B35.1 ; Type 2 diabetes mellitus with diabetic polyneuropathy E11.42 ; Pain in right toe(s) M79.674 ; Pain in left toe(s) M79.675 ; Other hammer toe(s) (acquired), left foot M20.42 ; Other hammer toe(s) (acquired), right foot M20.41 and Tinea pedis B35.[address] [address] 01/07/2024 Marv Hsieh Tinea unguium B35.1 ; Type 2 diabetes mellitus with diabetic polyneuropathy E11.42 ; Pain in right toe(s) M79.674 ; Pain in left toe(s) M79.675 ; Other hammer toe(s) (acquired), left foot M20.42 ; Other hammer toe(s) (acquired), right foot M20.41 and Tinea pedis B35.[address] [place] [address] 05/27/2023 Marv Hsieh Assessments Encounter Date Diagnosis (ICD Code) Assessment Notes Treatment Notes Treatment Clinical Notes Section Notes 07/02/2023 Tinea unguium (ICD-10 - B35.1) 10/01/2023 Tinea unguium (ICD-10 - B35.1) 01/07/2024 Tinea unguium (ICD-10 - B35.1) 07/02/2023 Type 2 diabetes mellitus with diabetic polyneuropathy (ICD-10 - E11.42) 10/01/2023 Type 2 diabetes mellitus with diabetic polyneuropathy (ICD-10 - E11.42) 01/07/2024 Type 2 diabetes mellitus with diabetic polyneuropathy (ICD-10 - E11.42) 07/02/2023 Pain in right toe(s) (ICD-10 - M79.674) 10/01/2023 Pain in right toe(s) (ICD-10 - M79.674) 01/07/2024 Pain in right toe(s) (ICD-10 - M79.674) 01/07/2024 Pain in left toe(s) (ICD-10 - M79.675) 10/01/2023 Pain in left toe(s) (ICD-10 - M79.675) 07/02/2023 Pain in left toe(s) (ICD-10 - M79.675) 07/02/2023 Other hammer toe(s) (acquired), left foot (ICD-10 - M20.42) 10/01/2023 Other hammer toe(s) (acquired), left foot (ICD-10 - M20.42) 01/07/2024 Other hammer toe(s) (acquired), left foot (ICD-10 - M20.42) 01/07/2024 Other hammer toe(s) (acquired), right foot (ICD-10 - M20.41) 10/01/2023 Other hammer toe(s) (acquired), right foot (ICD-10 - M20.41) 07/02/2023 Other hammer toe(s) (acquired), right foot (ICD-10 - M20.41) 07/02/2023 Tinea pedis (ICD-10 - B35.3) 10/01/2023 Tinea pedis (ICD-10 - B35.3) 01/07/2024 Tinea pedis (ICD-10 - B35.3) Plan Of Treatment Pending Test Test Name Order Date X ray : Foot, right 3V 09/21/2020 X ray : Foot, right 3V 01/03/2021 14590-ZXWGKZS NAIL, 6 OR MORE 01/07/2018 39268-HGUYQHK NAIL, 6 OR MORE 02/06/2011 58512-THXCBTC NAIL, 6 OR MORE 05/01/2011 21349-GZHNYCD NAIL, 6 OR MORE 07/31/2011 19805-BWPBRJQ NAIL, 6 OR MORE 10/30/2011 36487-UFJAGKT NAIL, 6 OR MORE 01/29/2012 71160-QRDEHAS NAIL, 6 OR MORE 05/06/2012 95727-SAAYIJG NAIL, 6 OR MORE 08/05/2012 01297-XORIZLR NAIL, 6 OR MORE 11/04/2012 37199-SVVLKJO NAIL, 6 OR MORE 02/03/2013 97953-OQGNFCQ NAIL, 6 OR MORE 04/07/2013 42005-HOLUUCE NAIL, 6 OR MORE 07/24/2013 22695-MPZLWBS NAIL, 6 OR MORE 11/17/2013 09100-FZJRIET NAIL, 6 OR MORE 02/02/2014 11042-AHAQGPH NAIL, 6 OR MORE 04/20/2014 60824-TIBHSIU NAIL, 6 OR MORE 06/29/2014 91248-JIYHGBJ NAIL, 6 OR MORE 09/17/2014 34834-QGXDYLC NAIL, 6 OR MORE 01/07/2015 35774-AOSRHLH NAIL, 6 OR MORE 04/08/2015 07702-OVBVUAG NAIL, 6 OR MORE 07/08/2015 37618-YPUNDSI NAIL, 6 OR MORE 10/07/2015 45028-WMHPBSM NAIL, 6 OR MORE 01/06/2016 89716-WMTQGFH NAIL, 6 OR MORE 04/06/2016 89027-NXGJPVK NAIL, 6 OR MORE 07/27/2016 49606-AHJNAUM NAIL, 6 OR MORE 10/19/2016 75182-VHYTMZM NAIL, 6 OR MORE 01/04/2017 47664-LIBGNAG NAIL, 6 OR MORE 04/05/2017 20329-TWPOVGV NAIL, 6 OR MORE 07/05/2017 31597-MNJJKDK NAIL, 6 OR MORE 10/08/2017 35371-SXEVPDB NAIL, 6 OR MORE 04/15/2018 63869-YDXR SKIN LESIONS, OVER 4 07/16/19 19 88773-ZQKA SKIN LESIONS, OVER 4 10/15/19 19 80557-MMGK SKIN LESIONS, OVER 4 12/31/19 19 75803-YQJE SKIN LESIONS, OVER 4 04/14/20 19 52250-JPMP SKIN LESIONS, OVER 4 06/30/19 20 27826-WCGS SKIN LESIONS, OVER 4 09/29/19 10951-WRMJ SKIN LESIONS, OVER 4 12/29/19 20 86956-STKG SKIN LESIONS, OVER 4 04/01/20 11997-VAOR SKIN LESIONS, OVER 4 07/06/19 21 35807-PWFP SKIN LESIONS, OVER 4 01/08/20 18 29733-QRBK SKIN LESIONS, OVER 4 10/09/19 18 76346-AJTK SKIN LESIONS, OVER 4 07/06/19 18 82307-TUTQ SKIN LESIONS, OVER 4 04/05/20 17 83452-YPRS SKIN LESIONS, OVER 4 01/05/20 17 32768-GAKB SKIN LESIONS, OVER 4 07/28/19 17 69274-OADL SKIN LESIONS, OVER 4 10/20/19 17 25385-WVDY SKIN LESIONS, OVER 4 04/06/20 16 63715-DCGE SKIN LESIONS, OVER 4 01/06/20 16 51919-NBRF SKIN LESIONS, OVER 4 10/07/19 16 45318-ADHP SKIN LESIONS, OVER 4 07/08/19 16 31914-GODY SKIN LESIONS, OVER 4 01/08/20 15 64242-DZMC SKIN LESIONS, OVER 4 09/18/19 15 53283-AVKW SKIN LESIONS, OVER 4 06/30/19 15 90258-AKFM SKIN LESIONS, OVER 4 02/03/20 14 48511-LOXO SKIN LESIONS, OVER 4 11/05/19 13 87369-ZABB SKIN LESIONS, OVER 4 04/15/20 18 96351-DTAW SKIN LESIONS, OVER 4 03/28/20 21 69955-QEWS SKIN LESIONS, OVER 4 06/20/19 22 97442-TNWL SKIN LESIONS, OVER 4 10/05/19 21 41429-ATEP SKIN LESIONS, OVER 4 01/04/20 21 85668-YVCV SKIN LESIONS, 2 TO 4 08/06/19 13 76739-IAWS SKIN LESIONS, 2 TO 4 05/06/19 13 67251-RUTN SKIN LESIONS, 2 TO 4 01/29/20 12 58921-VOQD SKIN LESIONS, 2 TO 4 10/30/19 12 02553-YIBZ SKIN LESIONS, 2 TO 4 07/31/19 12 61230-OCFB SKIN LESIONS, 2 TO 4 05/01/19 12 22568-AWKH SKIN LESIONS, 2 TO 4 02/07/20 11 55640-VWGN SKIN LESIONS, 2 TO 4 04/20/20 14 16808-JALI SKIN LESIONS, 2 TO 4 11/18/19 14 08023-EYXR SKIN LESIONS, 2 TO 4 07/25/19 14 81793-IFKF SKIN LESIONS, 2 TO 4 04/07/20 13 91058-MTLW SKIN LESIONS, 2 TO 4 02/04/20 13 11477-IMMG SKIN LESIONS, 2 TO 4 04/08/20 15 98781-Zjbqwkmwt, Toes 09/21/2020 Next Appt Details Provider Name:Camilla Larose april, 04/17/2024 12:00:00 PM, [address] [facility] [address], [place], [address], Insurance Providers Payer Name Payer Address Payer Phone Subscriber Number Group Number Insured Name Patient Relationship to Insured Coverage Start Date Coverage End Date [facility] [employer] Claims [address] [place] [id number] [place], [place] Self - patient is the insured Medical (General) History Medical History History ICD Code osteoporosis neuropathy measles joint implants/screws diabetic depression chicken pox cataracts back, hip, knee pain Arthritis Anxiety disorder anemia Surgical History Surgery Date(Month/Year) disc surgery hip surgery 2005 rotator cuff tear repair 2004 back surgery 12/22/2012 Hip surgery right side 05/07/14 Tendon left hand 11/2016 carpal tunnel surgery Hospitalization History Reason Date(Month/Year) [facility] 12/02/16 & 12/16/16 [facility] 05/07[facility]14 [facility] 12/[facility]2012
[2024-04-14] MEDS: gadobutroL 10 ML VIAL IVPUSH (14:41)
== END 2024-04-14 13:41 | disposition home or self-care (01) ==
LOC: HO.MRI 13:40
PROVIDERS: PCP Family Medicine; Visit Provider Registered Nurse
DX: D32.9 Benign neoplasm of meninges, unspecified (principal)
CPT/HCPCS: 70553; A9585

== ENCOUNTER 2024-04-16 14:08 | Outpatient (AMB) | payer OTHER, SELFPAY ==
--- OUTSIDE RECORDS SUMMARY | 2024-04-16 14:13 | XMS_ITS ---
Author Organization [facility] [place] Address [address] [facility] [place] [address] Care Team Providers Care Patrol Police Lieutenant Name Role Phone Cariewhit Deandra Primary Care Provider UnavailCamilla Freeman Unavailable [phone] Marv Hsieh Unavailable [phone] REASON FOR VISIT Painful nail(s) aggrevated by [...] 01/07/2024 Encounters Encounter Location Date Provider Diagnosis [facility] [address] [address] 01/07/2024 Marv Hsieh Tinea unguium B35.1 ; [...] Up: 3 Months, Reason: Provider Name:Camilla chen, 06/02/2024 03:30:00 PM, [address] [facility], [address], [place], [address], Procedure Notes * Category Sub-Category Detail Notes [...] as necessary. Patient chooses, no pharmaceutical tx (48639) Keratoma Treatment Parring or Cutting o f Benign Hyperkeratotic Lesion(s) 56191 ( >4 Lesions) - The Benign hyperkeratotic lesions, as described above were pared, and/or cut utilizing a sterile #15 blade, tissue nippers, and/or dremel Progress Notes * Felicita PÉREZDOB: [birth year] (88 yo F)Acc No.[id number]:01/07/2024 Progress Note Patient:?Felicita Pérez Provider:?Marv Hsieh DPM :1935???Age:88 Y???Sex:Female D ate:01/07/2024 Address:[address] [place], [place] [address] Pcp:Deandra Peraza Subjective: * Chief Complaints: * [...] [facility] * Family History:?Mother: [...] as necessary. Patient chooses, no pharmaceutical tx (75681).?Keratoma Treatment:?Parring or Cutting of Benign Hyperkeratotic Lesion(s)?19472 ( >4 Lesions) - The Benign hyperkeratotic lesions, as described above were pared, and/or cut utilizing a sterile #15 blade, tissue nippers, and/or dremel.? * Procedure Codes:?56109 DEBRI DE NAIL, 6 OR MORE, Modifiers: XS 97326 TRIM SKIN LESIONS, OVER 4, Modifiers: XS * Follow Up:?3 Months * Images: * Sign off status: Completed true * Provider:?Marv Hsieh DPM Date:? 024 Generated for Germaine wilson/Alexander/Christine on:?04/16/2024 08:45 AM EST History and Physical Notes * Examination [...] c Retinopathy Screening:: Yes 05/21/23 Vascular DP PULSES (B): 0/4. B/L PT PULSES (B): 0/4. B/L Nails NAILS are: elongated,overgr own,dystrophic,greater than 3mm thick,discolored and friable with crumbly malodorous subungual debris, with dull pain on palpation due to neuropathy, 1-5 B/L
--- OUTSIDE RECORDS SUMMARY | 2024-04-16 14:13 | XMS_ITS | Patient Health Record ---
Author Organization [facility] Address [address] [facility] [place] [address] Care Team Providers Care Video Camera Operator Name Role Phone Deandra Peraza Primary Care Provider Camilla Waters Unavailable [phone] HsiehMarv Unavailable [phone] Allergies No Known Allergies Results Component Value [...] Problem Acquired hammer toe of right foot (6219912908429878 ) Other hammer toe(s) (acquired), right foot (M20.41) Active confirmed Problem Acquired hammer toe of left foot (4826132199910077 ) Other hammer toe(s) (acquired), left foot (M20.42) Active confirmed Problem Polyneuropathy due to type 2 diabetes mellitus (650348306) Type 2 diabetes mellitus with diabetic polyneuropathy (E11.42) Active confirmed Vital Signs Height 5 ft 1 in in 01/07/2024 Weight 175 lbs 01/07/2024 BMI 33.06 kg/m2 01/07/2024 Encounters Encounter Location Date Provider Diagnosis [address] [address] 07/02/2023 Marv Hsieh Tinea unguium B35.1 ; Type 2 diabetes mellitus with diabetic polyneuropathy E11.42 ; Pain in right toe(s) M79.674 ; Pain in left toe(s) M79.675 ; Other hammer toe(s) (acquired), left foot M20.42 ; Other hammer toe(s) (acquired), right foot M20.41 and Tinea pedis B35.[address] [address] 10/01/2023 Marv Hsieh Tinea unguium B35.1 ; Type 2 diabetes mellitus with diabetic polyneuropathy E11.42 ; Pain in right toe(s) M79.674 ; Pain in left toe(s) M79.675 ; Other hammer toe(s) (acquired), left foot M20.42 ; Other hammer toe(s) (acquired), right foot M20.41 and Tinea pedis B35.[address] [address] 01/07/2024 Marv Hsieh Tinea unguium B35.1 ; Type 2 diabetes mellitus with diabetic polyneuropathy E11.42 ; Pain in right toe(s) M79.674 ; Pain in left toe(s) M79.675 ; Other hammer toe(s) (acquired), left foot M20.42 ; Other hammer toe(s) (acquired), right foot M20.41 and Tinea pedis B35.3 [facility] [address] [place] [address] 05/27/2023 Marv [facility] [address] [address] 04/15/2024 Camilla Evangelina Assessments Encounter Date Diagnosis (ICD Code) Assessment [...] X ray : Foot, right 3V 01/03/2021 73663-VMVJEXO NAIL, 6 OR MORE 01/07/2018 33891-FPMNKZH NAIL, 6 OR MORE 02/06/2011 42872-JHZJOCB NAIL, 6 OR MORE 05/01/2011 53390-CZZCZUK NAIL, 6 OR MORE 07/31/2011 21864-EPFNMMY NAIL, 6 OR MORE 10/30/2011 72491-XCDCFUO NAIL, 6 OR MORE 01/29/2012 02803-ORWEJGB NAIL, 6 OR MORE 05/06/2012 52535-UBBXUSM NAIL, 6 OR MORE 08/05/2012 48491-HSQJINR NAIL, 6 OR MORE 11/04/2012 93120-BWPLMMR NAIL, 6 OR MORE 02/03/2013 70228-XGJOGWH NAIL, 6 OR MORE 04/07/2013 66542-XZSHPKX NAIL, 6 OR MORE 07/24/2013 36520-JTEXAZQ NAIL, 6 OR MORE 11/17/2013 50151-LKBXERV NAIL, 6 OR MORE 02/02/2014 41519-ETSJQCE NAIL, 6 OR MORE 04/20/2014 21361-TLNGMJO NAIL, 6 OR MORE 06/29/2014 40696-FHQXFYH NAIL, 6 OR MORE 09/17/2014 64384-KLYWXET NAIL, 6 OR MORE 01/07/2015 79454-LNLCDSP NAIL, 6 OR MORE 04/08/2015 34475-KNEUXKB NAIL, 6 OR MORE 07/08/2015 41876-CGBIXMR NAIL, 6 OR MORE 10/07/2015 21527-EZPIGBC NAIL, 6 OR MORE 01/06/2016 11710-DKTWBVH NAIL, 6 OR MORE 04/06/2016 17643-QSOZXZK NAIL, 6 OR MORE 07/27/2016 56124-GAROLGV NAIL, 6 OR MORE 10/19/2016 79354-EYZQITH NAIL, 6 OR MORE 01/04/2017 74337-ZOCMMJB NAIL, 6 OR MORE 04/05/2017 29010-OTDPMTH NAIL, 6 OR MORE 07/05/2017 36976-TCKTQXR NAIL, 6 OR MORE 10/08/2017 47539-CVZQYQP NAIL, 6 OR MORE 04/15/2018 54552-ZFSW SKIN LESIONS, OVER 4 07/16/19 19 46192-XUSI SKIN LESIONS, OVER 4 10/15/19 19 41258-BUCJ SKIN LESIONS, OVER 4 12/31/19 19 18974-RGHP SKIN LESIONS, OVER 4 04/14/20 19 86076-ZBYC SKIN LESIONS, OVER 4 06/30/19 20 15036-DLIQ SKIN LESIONS, OVER 4 09/29/19 20 51261-BMCA SKIN LESIONS, OVER 4 12/29/19 20 25770-YZRM SKIN LESIONS, OVER 4 04/01/20 20 63756-NMJW SKIN LESIONS, OVER 4 07/06/19 21 09113-CUSO SKIN LESIONS, OVER 4 01/08/20 18 02710-UGRM SKIN LESIONS, OVER 4 10/09/19 18 93660-SIHG SKIN LESIONS, OVER 4 07/06/19 18 49000-NXLR SKIN LESIONS, OVER 4 04/05/20 17 84154-IROO SKIN LESIONS, OVER 4 01/05/20 17 22111-ZMKF SKIN LESIONS, OVER 4 07/28/19 17 22959-IMLU SKIN LESIONS, OVER 4 10/20/19 17 56226-RPXZ SKIN LESIONS, OVER 4 04/06/20 16 57279-KZLH SKIN LESIONS, OVER 4 01/06/20 16 04886-UTUB SKIN LESIONS, OVER 4 10/07/19 16 82763-UUVI SKIN LESIONS, OVER 4 07/08/19 16 97864-QAEQ SKIN LESIONS, OVER 4 01/08/20 15 27074-RKSV SKIN LESIONS, OVER 4 09/18/19 15 80385-FYRR SKIN LESIONS, OVER 4 06/30/19 15 98369-XEOP SKIN LESIONS, OVER 4 02/03/20 14 25570-WVCP SKIN LESIONS, OVER 4 11/05/19 13 04008-MDRS SKIN LESIONS, OVER 4 04/15/20 18 67561-YBPJ SKIN LESIONS, OVER 4 03/28/20 21 46719-ZIEB SKIN LESIONS, OVER 4 06/20/19 22 76200-ZJLS SKIN LESIONS, OVER 4 10/05/19 21 11785-OXMF SKIN LESIONS, OVER 4 01/04/20 21 26160-AJWN SKIN LESIONS, 2 TO 4 08/06/19 13 91526-VCNE SKIN LESIONS, 2 TO 4 05/06/19 13 89807-AOYZ SKIN LESIONS, 2 TO 4 01/29/20 12 04021-HCPY SKIN LESIONS, 2 TO 4 10/30/19 12 09966-ZZFG SKIN LESIONS, 2 TO 4 07/31/19 12 11015-JZMM SKIN LESIONS, 2 TO 4 05/01/19 12 23567-HPPW SKIN LESIONS, 2 TO 4 02/07/20 11 34865-LGES SKIN LESIONS, 2 TO 4 04/20/20 14 62885-HIEI SKIN LESIONS, 2 TO 4 11/18/19 14 00610-GDGD SKIN LESIONS, 2 TO 4 07/25/19 14 77632-HTXN SKIN LESIONS, 2 TO 4 04/07/20 13 94128-YWBE SKIN LESIONS, 2 TO 4 02/04/20 13 08663-FNTN SKIN LESIONS, 2 TO 4 04/08/20 15 81779-Apbwhdmxa, Toes 09/21/2020 Next Appt Details Provider Name:Camilla Larose april, 06/02/2024 03:30:00 PM, [address] [facility] [address], [place], [address], Insurance Providers Payer Name Payer Address Payer Phone Subscriber Number Group Number Insured Name Patient Relationship to Insured Coverage Start Date Coverage End Date [facility] S[employer] Claims [address] [place] [id number] [place], [place] Self - patient is the insured [...] History Reason Date(Month/Year) [facility], [facility] 12/02/16 & 12/16/16 [facility] - [facility] 05/07/14 [facility] 12/22/2012
--- OUTSIDE RECORDS SUMMARY | 2024-04-16 14:13 | XMS_ITS ---
Author Organization [facility] Address [address] [facility] [place] [address] Care Team Providers Care Yeast Maker Name Role Phone Cariewhit Deandra Primary Care Provider Camilla Waters [phone] REASON FOR VISIT RS 04/17 appt Encounters Encounter Location Date Provider Diagnosis [address] [place] [address] 04/15/2024 Camilla Hutchinson Plan Of Treatment Next Appt Details Provider Name:Camilla chen, 06/02/2024 03:30:00 PM, [address] [facility] [facility] [address], [place], [address], Progress Notes * Felicita PÉREZDOB: [birth year] (88 yo F)Acc No.[id number]:04/15/2024 Patient:?Felicita PÉREZ :1935???Age:88 Y???Sex:Female Address:[address] [place] [address] [address], [place], [address] * true * Date:? Generated for Zainabi steve/Alexander/eTransmitting on:?04/16/2024 08:45 AM EST
--- OUTSIDE RECORDS SUMMARY | 2024-04-16 14:13 | XMS_ITS ---
Author Organization [facility] Address [address] [place] [address] Care Team Providers Care Cosmetic Surgeon Name Role Phone Karmen LEVI, Deandra Primary Care Provider Otoniel Rascon [phone] REASON FOR VISIT script MEDICATIONS Medication SIG (Take, Route, Frequency, Duration) Notes Start Date End Date Status Lidocaine 5 % 1 application as nee ded Externally Three times a day as needed for rectal/hemorrhoidal discomfort for 30 days 11/07/2023 Active Encounters Encounter Location Date Provider Diagnosis [facility] [address] [place] [address] 11/07/2023 Otoniel Moya PLAN OF TREATMENT Medication Medication Name Sig Start Date Stop Date Notes Lidocaine 5 % 1 application as nee ded Externally Three times a day as needed for rectal/hemorrhoidal discomfort for 30 days 11/07/2023
--- OUTSIDE RECORDS SUMMARY | 2024-04-16 14:13 | XMS_ITS ---
Author Organization [facility] [place] Address [address] [facility] [place] [address] Care Team Providers Care Exhaust Tender Name Role Phone Deandra Peraza Primary Care Provider Camilla Waters Unavailable [phone] Marv Hsieh Unavailable [phone] Allergies No Known Allergies REASON FOR VISIT [...] 10/01/2023 Encounters Encounter Location Date Provider Diagnosis [facility] [address] [address] 10/01/2023 Marv Hsieh Tinea unguium B35.1 ; [...] Provider Name:Camilla chen, 06/02/2024 03:30:00 PM, [address] [facility], [address], [place], [address], Procedure Notes * Category Sub-Category Detail Notes [...] as necessary. Patient chooses, no pharmaceutical tx (02529) Keratoma Treatment Parring or Cutting o f Benign Hyperkeratotic Lesion(s) 18575 ( >4 Lesions) - The Benign hyperkeratotic lesions, as described above were pared, and/or cut utilizing a sterile #15 blade, tissue nippers, and/or dremel Progress Notes * Felicita PÉREZDOB: [birth year] (88 yo F)Acc No.[id number]:10/01/2023 Progress Note Patient:?Felicita Pérez Provider:?Marv Hsieh DPM :1935???Age:88 Y???Sex:Female D ate:10/01/2023 Address:[address] [place], [place] [address] Pcp:Deandra Peraza Subjective: * Chief Complaints: * [...] as necessary. Patient chooses, no pharmaceutical tx (70627).?Keratoma Treatment:?Parring or Cutting of Benign Hyperkeratotic Lesion(s)?65253 ( >4 Lesions) - The Benign hyperkeratotic lesions, as described above were pared, and/or cut utilizing a sterile #15 blade, tissue nippers, and/or dremel.? * Procedure Codes:?99584 DEBRI DE NAIL, 6 OR MORE, Modifiers: XS 94234 TRIM SKIN LESIONS, OVER 4, Modifiers: XS * Follow Up:?3 Months * Images: * Sign off status: Completed true * Provider:?Marv Hsieh DPM Date:? 024 Generated for Germaine wilson/Alexander/Christine on:?04/16/2024 08:45 AM EST History and Physical Notes * HPI [...]
--- OUTSIDE RECORDS SUMMARY | 2024-04-16 14:13 | XMS_ITS ---
Author Organization [facility] Address [address] [place] [address] Care Team Providers Care Health Program Specialist Name Role Phone Karmen LEVI, Deandra Primary Care Provider Otoniel Rascon [phone] REASON FOR VISIT lidocaine not covered by ins. shook on your desk Encounters Encounter Location Date Provider Diagnosis [facility] [address] [place] [address] 11/08/2023 Otoniel Moya PLAN OF TREATMENT No Information
--- OUTSIDE RECORDS SUMMARY | 2024-04-16 14:14 | XMS_ITS | Data Portability ---
Author Organization [facility] Address [address] [place] [address] Care Team Providers Care Transportation Dispatcher Name Role Phone [facility] Referring [...] will prescribe 5 day course to pharmacy. [email or web address] Not available 09/09/2021 20:23:58 01/29/2022 01/29/2022 I have reviewed and agree with the Assessment and Plan as documented by the Woods Rider. I provided real -time medical direction via phone for this encounter, and was available for additional phone based assistance as needed. Patient given the opportunity to ask questions. [email or web address] Not available 01/29/2022 21:48:04 07/11/2022 07/11/2022 I provided real -time medical direction via phone for this encounter, and was available for additional phone based assistance as needed. I have reviewed and agree with the Assessment and Plan as documented by the Woods Rider. Patient given the opportunity to ask questions. patient calls today as she has a couple issues going on. She has a ingrown hair that the family states that they will take care of. On exam the fire pot operator describes a very small blister in the [...] assessment and plan as documented by the fire pot operator. I provided real-time medical direction for this [...] Ag, QL IA, respiratory specimen [address], [address], 3 20:18:15 rapid flu (A+B) [address], [address], 3 20:18:15 Referral None recorded. Procedures None recorded. Surgeries None recorded. Imaging None recorded. Medication Orders amoxicillin 875 mg-potassiu m clavulanate 125 mg tablet 2021 022 [id number], [address] [facility], [place], [address], 20:22:59 Patient TargetsNo targets recorded. Patient InstructionsNo instructions recorded. Reason for Referral None Reported. Results Created Date Observation Date Name Description Value Unit Range Abnormal Flag Note LastModifiedBy Organization Detail LastModifiedTime 07/12/19 23 07/11/2022 rapid flu (A+B) Flu negati ve Not Available [facility] [address] [place] [address], [address], 07/11/2022 20:17:42 07/12/19 23 07/11/2022 rapid SARS CoV 2 Ag, QL IA, respi rator y speci men rapid SARS CoV 2 Ag, QL IA, respiratory specimen negati ve Not Available Main - [facility] [address] [place], [address], 07/11/2022 20:17:41 Result Notes None recorded. Medical [...] % 98.2 [degF] 18 /min 88 /min 39331.5 6 g 156 mm[Hg] 62 mm[Hg] Not Available [employer] 3 12:02:18 Date Recorded Respiratory rate Heart [...] mm[Hg] 148 mm[Hg] 83 mm[Hg] Not Available [employer] 2 16:38:03 Date Recorded Body temperature Respiratory rate Oxygen saturation Oxygen saturation in Arterial blood by Pulse oximetry Heart rate Systolic blood pressure Diastolic blood pressure Provider Name and Address Organization Details Last Updated DateTime 2 99.2 [degF] 18 /min 98 % 98 % 76 /min 134 mm[Hg] 54 mm[Hg] Not Available [employer] 2 16:31:53 Date Recorded Oxygen saturation Oxygen saturation in Arterial blood by Pulse oximetry Heart rate Body weight Respiratory rate Body temperature Systolic blood pressure Diastolic blood pressure Provider Name and Address Organization Details Last Updated DateTime 3 97 % 97 % 90 /min 63193.5 6 g 16 /min 98.7 [degF] 167 [...] 2 18 /min 160.02 cm 97.2 [degF] 31545.9 04 g 94 /min 95 % 95 % 160.02 cm 18 /min 94 /min 33165.9 04 g 95 % 95 % 97.2 [...] 1561 Ashish Valdez MD Main - [facility]ED [address] [place] [address] 09/09/2021 20:19:52 01/04/2022 15:08:36 Dog bite of hand 753461147 S61.452A 4336 Key Alcantar MD Main - [facility] [address] [place] [address] 01/27/2022 15:48:44 01/29/2022 14:10:35 COVID-19 098816628 U07.1 4369 Shea Martinez MD Main - [facility] [address] [place] [address] 01/29/2022 16:25:19 02/01/2022 15:07:11 COVID-19 673645672 U07.1 8548 Yesenia Purvis MD Main - [facility] [address] [place] [address] 07/11/2022 20:12:53 07/13/2022 11:05:18 Respiratory tract congestion and cough 725994850 R05.9 36103 Clari José MD Main - [address] [address] 04/24/2023 12:02:13 04/25/2023 09:55:54 Rectal prolapse 53071757 K62.3 Health Concerns Section Related Observation LastModified by Organization Detai ls LastModified Time None Recorded Concern Status LastModified by Organization Details LastModified Time None Recorded Advance Directives Directive None Recorded Payers Encounter Date Sequence Insurance Name Policy Number Policy Marquez Covered Member ID Marquez Member ID Guarantor Name 09/09/2021 1 [facility] - DOS PRIOR TO 2022 - DUAL ELIGIBLE (MEDICARE REPLACEMENT/ADV ANTAGE - HMO) [facility] [id number] [facility] 01/27/2022 1 [facility] - DOS PRIOR TO 2022 - DUAL ELIGIBLE (MEDICARE REPLACEMENT/ADV ANTAGE - HMO) [facility] [id number] [facility] 01/29/2022 1 [facility] - DOS PRIOR TO 2022 - DUAL ELIGIBLE (MEDICARE REPLACEMENT/ADV ANTAGE - HMO) [facility] [id number] [facility] 07/11/2022 1 [facility] - DOS PRIOR TO 2022 - DUAL ELIGIBLE (MEDICARE REPLACEMENT/ADV ANTAGE - HMO) [facility] [id number] [facility] 04/24/2023 1 [facility] - DOS ON OR AFTER 2022 - DUAL ELIGIBLE - [employer] OPTIONS AND ONE CARE (MEDICARE REPLACEMENT/ADV ANTAGE - HMO) [facility] [id number] [facility] Notes Date Note Type Note Provider [...] .................. .................. .................. .................. .................. .................. ............... Woods Rider Note: Sent to a call for a [...] RR:18, SpO2:95%, T:97.2; Lung sounds: clear bilaterally, [facility] sends script to pt's pharmacy for Augmentin. Red flags discussed. Pt and daughter have no further questions. .................. .................. .................. .................. .................. .................. .................. ............... Disposition: Fulfilled Ashish Valdez MD [address] [facility],[address], [place], [address], KEANU YO 09/09/2021 21:12:42 01/27/2022 text/html CRC [...] .................. .................. .................. .................. .................. .................. ............... Woods Rider Note: 86 yo female c/o cough, headache, sore throat. Covid in the home. Lung sounds clear and diminished. Rapid covid test positive. .................. .................. .................. .................. .................. .................. .................. ............... Disposition: Farshad Alcantar MD [address] [facility],[address], [place], [address], [place] - MARY ANNEMicropelt KEANU 01/28/2022 00:20:26 01/29/2022 text/html CRC Nursing [...] .................. .................. .................. .................. .................. .................. ............... Woods Rider Note: Pt was diagnosed with COVID on [...] to the ED and get the transfusion. [facility] contacted. Red flags discussed. Daughter to bring Pt to [facility] .................. .................. .................. .................. .................. .................. .................. [...] 4 of symptoms. Shea Martinez MD [address] [facility],[address], [place], [address], [employer] [facility] 01/29/2022 21:55:28 07/11/2022 text/html HPI: Pt daughter reports abscess on inner right groin. Noticed it last night. Per daughter it is very firm and tender. Per daughter no fever. Pt is having chills last week. Pt has a cold. Has not become any larger. Very tender to touch. No appts on teams. Agrees to [facility] for exam today to rule out need for abx. .................. .................. .................. .................. .................. .................. .................. ............... CRC Nursing Assessment: Comments: CRC RN DID NOT NEED FURTHER INFO .................. .................. .................. .................. .................. .................. .................. ............... Woods Rider Note From Michael Webster: Dispatched to the [...] ............... Disposition: Fulfilled Yesenia Purvis MD [address] [facility],[address], [place], [address], [employer] Ayden DexmoKEANU ORELLANA 07/11/2022 20:30:12 04/24/2023 text/html HPI: Pt is having rectal pain due to hemmorrhoids. Has had some bleeding since 04/19/23 when returned from [place]. Pt also has increased confusion and is suspect of UTI. .................. .................. .................. .................. .................. .................. .................. ............... CRC Nurse Triage Notes (Ngoc Warner): Comments: No further information needed. .................. .................. .................. .................. .................. .................. .................. ............... Woods Rider Note From Darrel Velásquez: Pt co of severe rectal pain and bleeding. Family concerned for possible UTI due to confusion. Unable to urinate at this time. Pt denies cp sob fever nausea or vomiting. Rectum is very swollen/appears prolapsed possibly. Baseline vitals assessed. [facility] contacted and advised to be seen in the ER. 911 called for transport to [facility]. Pt had difficulty sitting on her bottom so ambulance transport was decided best by family. .................. .................. .................. .................. .................. .................. .................. ............... Disposition: Fulfilled Clari José MD [address] [place] [address],[address], [place], [address], [facility] 04/24/2023 15:26:16 OBGyn Episode No OBEpisode recorded.
--- OUTSIDE RECORDS SUMMARY | 2024-04-16 14:14 | XMS_ITS ---
Author Organization [facility] Address [address] [place] [address] Care Team Providers Care Blood Bank Coordinator Name Role Phone Karmen LEVI, Deandra Primary Care Provider Otoniel Rascon Unavailable [phone] ALLERGIES No Known Allergies MEDICATIONS Medication SIG [...] Rectal bleeding (K62.5) Active confirmed Rectal bleeding (42440068) Problem External hemorrhoids (K64.4) Active confirmed External hemorrhoids (26495058) Problem Rectal pain (K62.89) Active confirmed Rectal pain (61931555) VITAL SIGNS BMI 33.11 kg/m2 11/06/2023 Blood pressure systolic 000 mm Hg 11/06/19 24 Blood pressure diastolic 00 mm Hg 024 Height 61 in 11/06/2023 Temperature 97.5 degrees Fahrenheit 11/06/19 24 Weight 175 lb 4 oz lbs 11/06/2023 Encounters Encounter Location Date [facility] [address] [place] [address] 11/06/2023 Otoniel Moya Rectal bleeding K62. 5 [...]
--- OUTSIDE RECORDS SUMMARY | 2024-04-16 14:14 | XMS_ITS | Patient Health Record ---
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 Name Role Phone Karmen LEVI, Deandra Primary Care Provider Otoniel Rascon Unavailable [phone] ALLERGIES No Known Allergies REASON FOR REFERRAL [...] Rectal bleeding (K62.5) Active confirmed Rectal bleeding (15998134) Problem Other dysphagia (R13.19) Active confirmed 14090942 Problem Dysphagia (R13.10) Active confirmed Dys phagia (06892935) Problem Rectal pain (K62.89) Active confirmed R ectal pain (07349496) Problem Oropharyngeal dysphagia (R13.12) Active confirmed 84758179 Problem External hemorrhoids (K64.4) Active confirmed External hemorrhoids (75111915) Problem Esophageal motility disorder (K22.4) Active confirmed [id number] Problem Gastroesophageal reflux (K21.9) Active confirmed Esophageal reflux finding (559461917) Problem Gastroesophageal reflux disease, unspecified whether esophagitis present (K21.9) Active confirmed 516732326 Problem Esophageal dysphagia (R13.19) Active confirmed 93623979 VITAL SIGNS Temperature 97.5 degrees Fahrenheit 11/06/2023 Blood pressure diastolic 00 mm Hg 11/06/2023 Height 61 in 11/06/2023 Blood pressure systolic 000 mm Hg 11/06/2023 Weight 175 lb 4 oz lbs 11/06/2023 BMI 33.11 kg/m2 11/06/2023 Encounters Encounter Location Date Provider Diagnosis [facility] [address] [place] [phone] 08/01/2023 Otoniel Moya [facility] [address] [place] [phone] 11/06/2023 Otoniel Moya Rectal bleeding K62. 5 ; External hemorrhoids K64.4 and Rectal pain K62.89 [facility] [address] [place] [phone] 08/01/2023 Otoniel Moya [facility] [address] [place] [phone] 08/01/2023 Otoniel Moya [facility] [address] [place] [phone] 11/07/2023 Otoniel Moya [facility] [address] [place] [phone] 11/08/2023 Otoniel Moya ASSESSMENTS Encounter Date Diagnosis [...] Insured Coverage Start Date Coverage End Date [facility] [address] Attn Claims OLIVER Paredes [id number] [place], [place] Self - patient is the insured MEDICAL (GENERAL) HISTORY Medical History History ICD Code Hyperlipidemia Osteoarthritis GERD--EGD with balloon dilat ion in 2007--no definitive stricture nor [id number] HH Denies [place],CVA,Lung disease Osteoporosis Fibromyalgia NIDDM Renal insufficiency Colonoscopy [...]
[2024-04-16 14:24] VITALS: BP 130/62; PULSE 72; BMI 32.9
--- NOTE | 2024-04-16 14:24 | MHC.OFFVIS ---
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: [employer] Windows Engineer Present Allergies No Known Allergies [No Known Allergies*] Allergy (Verified 04/16/24 14:29) Medication List - Last Reconciled 04/16/24 by VADIM Auguste acetaminophen (Tylenol) 650 mg PO Q4H PRN amitriptyline 10 mg PO BEDTIME amlodipine 5 mg PO DAILY ascorbic acid (vitamin C) (Vitamin C) 500 mg PO BID aspirin 81 mg PO DAILY atorvastatin (Lipitor) 80 mg PO DAILY baclofen 5 mg (1/2 x 10 mg) PO BID calcium carbonate-vitamin D3 600 mg-10 mcg (400 unit) 1 tab PO BID cholecalciferol (vitamin D3) (Vitamin D3) 25 mcg PO QAM citalopram 20 mg PO DAILY clopidogrel 75 mg PO DAILY conjugated estrogens (Premarin) 0.625 mg vaginal 2XW cranberry extract 300 mg PO DAILY cyanocobalamin (vitamin B-12) 1,000 mcg PO DAILY denosumab (Prolia) INJECT 60MG SUBCUTANEOUSLY EVERY 6 MONTHS diclofenac sodium 1% (Voltaren) 4 grams topical QID PRN docusate sodium 100 mg PO BID dulaglutide (Trulicity) 0.75 mg subcut QWEEK ferrous sulfate 325 mg PO DAILY fluticasone propionate 220 mcg/actuation 1 puff inhalation BID glucosamine HCl 1,500 mg PO DAILY hydrocortisone acetate (Anucort-HC) 25 mg ME BID PRN levothyroxine 112 mcg PO QAM lidocaine 4% 1 appl topical QD-TID PRN loratadine (Allergy Relief (loratadine)) 10 mg PO DAILY metoprolol tartrate 12.5 mg PO BID mirabegron ER (Myrbetriq) 25 mg PO DAILY omeprazole 20 mg PO DAILY pregabalin 75 mg PO DAILY pregabalin 100 mg PO BEDTIME propylene glycol 0.6% (Systane Balance) 1 drp ophthalmic (eye) DAILY PRN psyllium seed (sugar) (Metamucil (sugar) oral powder) 1 tbsp PO DAILY sennosides (Natural Senna Laxative) 17.2 mg PO BEDTIME witch soni 50% (Hemorrhoidal Hygiene) pad topical HPI HPI 3m follow up: Details: Jeannine is an 88-year-old female with past medical history of obesity, hyperlipidemia, diabetes, chest discomfort with abnormal nuclear stress test who recently had cardiac catheterization showing 99% mid LAD stenosis and angioplasty was done. She now presents for follow-up. Today she reports that she has been doing well since her last visit in December. She denies any chest discomfort at rest or with activity. She still notices an anxious feeling in her chest which has been unchanged before and after the catheterization procedure. She does have some shortness of breath with activities which is unchanged as well. No PND, orthopnea or edema. No lightheadedness, presyncope, syncope, falls. Mostly sedentary. Ambulates with a walker. No bleeding issues reported. Takes meds as directed. Daughter assists with Mongolian translation at their request. [facility] Medical History Prolapsed hemorrhoids Carpal tunnel syndrome Elevated cholesterol Osteoarthritis Osteoporosis Fibromyalgia Chronic renal insufficiency Diabetes GERD (gastroesophageal reflux disease) Hypothyroid Polymyalgia rheumatica Surgical History S/P carpal tunnel release Hx of rotator cuff surgery Hx of vein stripping History of esophagogastroduodenoscopy (EGD) H/O colonoscopy Hx of hysterectomy History of hip surgery History of back surgery Hx of tubal ligation Family History Mother HTN (hypertension) Father Alzheimer disease Social History Household Members: Spouse and Children Housing: House Alcohol intake: former Patient Tobacco Use Status: Never used Tobacco Advance Directives Date on File: 02/10/20 Current occupational status: 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 Sob with walking - not new, unchanged Denies chest pain, Denies chest pain at rest, Denies chest pain with activity, Denies rapid heart rate, Denies pedal edema, Denies edema, Denies leg edema, Denies lightheadedness, Denies palpitations, Denies dyspnea, Denies dyspnea on exertion and Denies orthopnea Resp Denies cough, Denies dyspnea and Denies dyspnea on exertion GI Denies hematochezia and Denies change in stool character Musc Denies abnormal gait, Denies limited range of motion, Denies muscle cramps, Denies muscle weakness, Denies numbness, Denies radiating pain into limb, Denies stiffness and Denies tingling Neuro Denies abnormal gait, Denies dizziness, Denies numbness and Denies tingling Endo Denies palpitations Physical Exam Vital Signs: Last Vital Signs Pulse 72 04/16/24 14:24 BP 130/62 04/16/24 14:24 BMI result Body Mass Index 32.9 Const General: cooperative, healthy appearing, comfortable and no acute distress Orientation/consciousness: patient oriented x3 Neck Neck: Yes normal visual inspection and Yes no JVD Resp Effort & Inspection: normal respiratory effort Auscultation: clear to auscultation bilaterally, no rales, no rhonchi and no wheezes Cardio Jugular venous distension: no JVD Rate: regular rate Rhythm: regular rhythm Heart sounds: S1 normal heart sound present, S2 normal heart sound present, no murmurs and no rubs Neuro General: patient oriented x3 Extrem General: Yes normal to inspection and No no pedal edema Psych Appearance: grossly normal Mental Status: mental status grossly normal Speech and movement: Normal speech and movement present Office Procedures EKG Details: Today, read by me, sinus rhythm, anterior Q-waves, can not exclude prior anterior infarct, no significant change from her EKG 10/03/2022, rate 72, QTC 451 milliseconds [id number], Complete Assessment & Plan Assessment & Plan (1) SOB (shortness of breath): Code(s): R06.02 - Shortness of breath Category: Medical Plan: Prior reports of discomfort in her chest with activity. She also has reports of shortness of breath and an agitation feeling in her chest. Cardiac risk factors of obesity, age, diabetes, hyperlipidemia. A Holter monitor 07/30/22 sinus rhythm with average heart rate 96, SVE 1.7% of time. Echocardiogram done 10/25/2022 showing EF 60-65%, impaired relaxation, mild MR, normal RV, no pulmonary hypertension. Nuclear stress test done 11/18/23 for ongoing reports of symptoms, showed moderate intensity apical ischemia, EF 70%. She underwent cardiac catheterization on 12/10/2023 which showed mid LAD 99% stenosis, angioplasty was performed and stenosis reduced to 1%, vessel was not stented. She was continued on aspirin and started on clopidogrel 75 mg daily. On follow-up visit she reported that her chest discomfort was gone however she continued to have the shortness of breath with activity and agitation feeling in her chest. Today she states These symptoms remain unchanged. Her shortness of breath and chest agitation is likely noncardiac. She appears to be deconditioned. Cardiac rehab was previously offered and she declined. An EKG today shows sinus rhythm, can not exclude prior anterior infarct. When compared to EKG 10/03/2022 there are no significant changes. Home pulse rates have been running elevated between 90s and low 100s. Home blood pressures range systolic 120-150s. Will increase her metoprolol from 12.5 mg b.i.d. up to 25 mg b.i.d.. Continue aspirin indefinitely, clopidogrel uninterrupted for at least 1 year. Continue amlodipine. Continue high-dose atorvastatin with LDL goal less than 70. Labs done 12/25/2023 showed LDL 33. Cardiology follow-up 3-4 months, sooner if needed. Emergency care if ever needed for symptoms. (2) S/P cardiac cath: Comment: 12/10/2023, left main normal, lad mid 99% stenosis, angioplasty done and reduced to 1%, no stent, left circumflex and RCA mild irregularities Code(s): Z98.890 - Other specified postprocedural states Category: Surgical (3) Chest discomfort: Code(s): R07.89 - Other chest pain Category: Medical Plan: As above -resolved post angioplasty. Still has shortness of breath and an agitated feeling in chest. (4) CAD (coronary artery disease): Code(s): I25.10 - Atherosclerotic heart disease of [place] coronary artery without angina pectoris Category: Medical Plan: As above Plan Time spent on chart review, documentation, interview and assessment Orders: Orders AMB EKG-In Office Today I25.10 - Atherosclerotic heart disease of [place] coronary artery without angina pectoris Medications: New metoprolol tartrate Dose increased 25 mg PO BID 60 tabs 6RF 30 days Coding Level of Care Code Est Pt Level 4 (94974) Diagnoses SOB (shortness of breath) R06.02 S/P cardiac cath Z98.890 Chest discomfort R07.89 CAD (coronary artery disease) I25.10 CPT Codes EKG - CPT: [id number], Complete ([id number]) Time Spent (min) 32
== END 2024-04-16 15:01 | disposition home or self-care (01) ==
PROVIDERS: PCP Family Medicine; Visit Provider Nurse Practitioner Family
DX: R06.02 Shortness of breath (principal); Z98.890 Other specified postprocedural states; R07.89 Other chest pain; I25.10 Atherosclerotic heart disease of native coronary artery without angina pectoris
CPT/HCPCS: 93010; 99214

== ENCOUNTER → 2024-04-16 14:08 | Outpatient (BNVA) | payer OTHER, SELFPAY | PROVIDERS: PCP Family Medicine; Visit Provider Nurse Practitioner Family | DX: I25.10 Atherosclerotic heart disease of native coronary artery without angina pectoris (principal); E66.9 Obesity, unspecified; E78.5 Hyperlipidemia, unspecified; E11.9 Type 2 diabetes mellitus without complications; R06.02 Shortness of breath; R07.89 Other chest pain; Z68.32 Body mass index [BMI] 32.0-32.9, adult; Z98.890 Other specified postprocedural states | CPT/HCPCS: 93005; 99212 ==